=== PATIENT | female | born 1950 | race Caucasian/White ===

== ENCOUNTER 2018-09-15 20:24 | Emergency (ER) | payer MEDICARE, SELFPAY ==
[2018-09-15 20:25] VITALS: BP 88/47; PULSE 82; RESP 26; TEMP 36.8; O2SAT 100; BMI 34.7
[2018-09-15 20:35] VITALS: BP 122/69; PULSE 83; RESP 18; TEMP 36.6; O2SAT 94
--- NOTE | 2018-09-15 21:01 | EKG12_ITS ---
Test Reason : GI BLEED Blood Pressure : / mmHG Vent. Rate : 081 BPM Atrial Rate : 081 BPM P-R Int : 232 ms QRS Dur : 134 ms QT Int : 444 ms P-R-T Axes : 023 -70 051 degrees QTc Int : 515 ms Sinus rhythm with 1st degree A-V block Left axis deviation Non-specific intra-ventricular conduction block Inferior infarct , age undetermined Anterolateral infarct , age undetermined Abnormal ECG Confirmed by BRAULIO GUTIERREZ, LANDON ([id number]), communications editor HILARIO TRACEY ([id number]) on 09/21/2018 9:55:40 AM Referred By: JAMARI Confirmed By:LANDON RAMSEY MD
--- NOTE | 2018-09-15 21:03 | ED.VISSUMM ---
- ER Visit Summary Date of Service: 09/15/18 Chief Complaint: Melena History of Present Illness: The patient is a 68 F who presents from [facility] for GI bleed. Patient has had 2 episodes of melena today. She has associated dizziness and lightheadedness. Patient is nauseated. Patient denies history of GI bleed before. She is not on any blood thinners other than baby aspirin daily. The nurse practitioner that evaluated her and sent her in for further workup states patient's abdomen was tender on evaluation. Patient currently has complaints of dizziness and nausea. Physical Examination: Vital signs: afebrile, tachycardic, normotensive, no hypoxia on room air General: well nourished, well developed, in mild distress Skin: warm, dry, no rash, pale with conjunctiva pallor, noted several scattered bruises in various stages of healing on the extremities r HEENT: normocephalic and atraumatic; PERRL, EOMI, moist mucous membranes Cardiovascular: Tachycardic rate and rhythm without murmurs, 2+ symmetric pittting peripheral edema, 2+ pulses all distal extremities Respiratory: No increased work of breathing, lungs are clear to auscultation bilaterally, no rales, rhonchi or wheezing Abdominal: Abdomen is soft, diffusely tender with normoactive bowel sounds, no guarding or rebound, no masses; active gross melena in patient's depends MSK: Moves all extremities, no deformities, generalized weakness Neuro: Awake and alert, oriented ?4. No facial droop, sensation and motor function intact and symmetric Test Results: Abnormal Lab Results 09/15/18 09/15/18 09/15/18 20:30 20:30 20:30 WBC 8.6 RBC 3.28 L Hgb 10.4 L Hct 31.9 L MCV 97.3 MCH 31.7 MCHC 32.6 RDW 20.9 H RDW Differential 72.8 H Plt Count 135 L MPV 10.5 Immature Gran % (Auto) 0.400 Neut % (Auto) 55.4 Lymph % (Auto) 33.2 [place] % (Auto) 10.8 H Eos % (Auto) 0.0 Baso % (Auto) 0.2 Absolute Neuts (auto) 4.7 Absolute Lymphs (auto) 2.84 Total Counted Not Reportable Platelet Estimate SLT DEC Hypochromasia RARE Anisocytosis 1+ Macrocytosis 1+ PT 16.0 H INR 1.3 APTT 29.9 Sodium 146 H Potassium 4.3 Chloride 113 H Carbon Dioxide 24.0 Anion Gap 9 BUN 28 H Creatinine 0.70 Estim Creat Clear Calc 55.07 Est GFR (MDRD) Af Amer 107 Est GFR (MDRD) Non-Af 89 BUN/Creatinine Ratio 40.1 H Glucose 64 L Lactic Acid Calcium 8.0 L Total Bilirubin 0.60 AST 64 H ALT 43 Alkaline Phosphatase 102 Total Protein 4.7 L Albumin 1.8 L Globulin 2.9 Albumin/Globulin Ratio 0.6 L Lipase 35 L Blood Type Antibody Screen Crossmatch 09/15/18 09/15/18 20:30 21:10 WBC RBC Hgb Hct MCV MCH MCHC RDW RDW Differential Plt Count MPV Immature Gran % (Auto) Neut % (Auto) Lymph % (Auto) [place] % (Auto) Eos % (Auto) Baso % (Auto) Absolute Neuts (auto) Absolute Lymphs (auto) Total Counted Platelet Estimate Hypochromasia Anisocytosis Macrocytosis PT INR APTT Sodium Potassium Chloride Carbon Dioxide Anion Gap BUN Creatinine Estim Creat Clear Calc Est GFR (MDRD) Af Amer Est GFR (MDRD) Non-Af BUN/Creatinine Ratio Glucose Lactic Acid 2.1 H Calcium Total Bilirubin AST ALT Alkaline Phosphatase Total Protein Albumin Globulin Albumin/Globulin Ratio Lipase Blood Type O POSITIVE Antibody Screen NEGATIVE Crossmatch See Detail Clinical Impression(s) from Imaging Studies KUB X-Ray 09/15/18 21:55 IMPRESSION: Enteric tube tip in the stomach. Electronically Signed: Chuck Olea, at 22:16 EST Tel , Service support , Medications Given Discontinued Medications Dextrose (D50w Syringe) 12.5 gm IV X1 ONE Stop: 09/15/18 21:37 Last Admin: 09/15/18 22:00 Dose: 12.5 gm Sodium Chloride () 500 mls @ 1,000 mls/hr IV .Q30M ONE Stop: 09/15/18 21:29 Last Admin: 09/15/18 21:26 Dose: 1,000 mls/hr Pantoprazole Sodium 80 mg/ (Sodium Chloride) 35 mls @ 420 mls/hr IV BOLUS X1 ONE Stop: 09/15/18 21:59 Last Admin: 09/15/18 22:25 Dose: 420 mls/hr Ondansetron HCl (Zofran) 4 mg IV X1 ONE Stop: 09/15/18 21:01 Last Admin: 09/15/18 21:18 Dose: 4 mg Emergency Department Course and Treatment: Patient presents with active melena, pallor, tachycardia, abdominal discomfort and nausea. This is concerning for active life-threatening GI hemorrhage. Patient was typed and crossed for blood transfusion. Labs were performed. She was given a small fluid bolus and antiemetic. NG placed with return of coffee-ground emesis. She was given Protonix IV. Because there is no history or suspicion for bleeding varices, patient was not given octreotide or Rocephin. Hemoglobin was 10.4, with no baseline for comparison. Because of patient's significant pallor and large amount of melena, it is concerning that patient's hemoglobin is not reflective of her actual anemic state. Thus patient was given a unit of blood. Patient did have elevated BUN and an elevated lactate, which is consistent with the GI bleed. No obvious indication of underlying infection thus no further lactates were performed and patient was not empirically treated for sepsis. Glucose was low at 64, and thus patient was given half an amp of D50. Patient remained hemodynamically stable. Patient was discussed with our surgeon, Dr. Argueta, and patient will likely require intervention not available at this facility. Patient was discussed with [facility] and transferred for further management of acute upper GI bleed and symptomatic anemia. If patient has not been transferred yet at the completion of her first unit of blood, hemoglobin will be repeated, and if it remains stable, no further will be transfused at this time. However if it is trending downward, a second unit will be initiated due to concern for continued active brisk bleed. Critical care time of 45 minutes for initial evaluation and stabilization, coordination of care, frequent re-evaluations, interpretation of lab work, discussion with specialists, discussion with family, and documentation. Treatment Plan: [] Disposition: Transfer to [facility] Impression: Acute upper GI bleed, symptomatic anemia, hypoglycemia This note was generated with [employer] dictation software. It may contain incorrect words, spelling, and punctuation that were not noted in review of the chart prior to signing ED Disposition - Plan for ED Patient: Referrals: Shakira Brewer MD [Primary Care Provider] -
[2018-09-15 21:11] LABS: Absolute Lymphocyte Count 2.84 X10^3/ul (0.83-4.51); Absolute Neutrophil Count 4.7 X10^3/uL (2.0-7.7); Basophil# 0.02 X10^3/uL; Basophil% 0.2 % (0-1); Hematocrit 31.9 % (37-47); Hemoglobin 10.4 g/dl (12.0-15.0); Lymphocyte # 2.84 X10^3/ul (4.0); Lymphocyte % 33.2 % (19-41); Mean Corp Hgb Conc 32.6 g/gl (32-36); Mean Corpuscular Hgb 31.7 pg (27.0-32.0); Mean Corpuscular Volume 97.3 fL (81-99); Mean Platelet Vol. 10.5 fl (6.2-12.0); Monocyte# 0.92 X10^3/uL; Monocyte% 10.8 % (0-10); Neutrophil # 4.74 X10^3/uL (2.7-7.7); Neutrophil % 55.4 % (47-70); Platelet Count 135 K/mm3 (150-450); RBC Distribution Width CV 20.9 % (11.6-14.6); RBC Distribution Width SD 72.8 fl (35.1-43.9); Red Blood Count 3.28 M/mm3 (4.2-5.4); White Blood Count 8.6 K/mm3 (4.4-11.0)
[2018-09-15 21:14] LABS: International Normalized Ratio 1.3
[2018-09-15 21:15] LABS: Partial Thromboplast Time 29.9 Seconds (24.1-36.2)
[2018-09-15] MEDS: Ondansetron 4 MG/2 ML Vial IV (21:18)
[2018-09-15 21:24] LABS: Differential Indicated SCAN CRITERIA MET; POSITIVE COUNT NO; POSITIVE DIFFERENTIAL NO; POSITIVE MORPHOLOGY YES
[2018-09-15 21:28] LABS: ALB/GLOB Ratio 0.6 RATIO (0.9-2.4); AST(SGOT) 64 U/L (15-37); Alanine Aminotransfer ALT/SGPT 43 U/L (13-56); Albumin, Serum 1.8 g/dL (3.2-5.0); Alkaline Phosphatase 102 U/L (45-117); Anion Gap 9 (5-15); BUN 28 mg/dL (7-18); BUN/Creat Ratio 40.1 RATIO (10-20); Chloride 113 mmol/L (98-107); EST Glomerular Filtration Rate 89 mL/min (>60); Est Glom Filt Rate - Afr Amer 107 mL/min (>60); Estimated Creatinine Clearance 55.07 ml/min; Globulin 2.9 g/dL (2.2-4.2); Glucose 64 mg/dL (74-106); Lipase 35 U/L (73-393); Potassium 4.3 mmol/L (3.5-5.1); Protein, Total 4.7 g/dL (6.4-8.2); Sodium Level 146 mmol/L (136-145)
[2018-09-15 21:31] LABS: Anisocytosis 1+; Hypochromasia RARE; Macrocytosis 1+; Platelet Estimate SLT DEC (ADEQ)
[2018-09-15 21:51] LABS: Lactic Acid 2.1 mmol/L (0.4-2.0)
--- NOTE | 2018-09-15 21:53 | ED.RN ---
DR BROWN NOTIFIED OF LACTIC ACID RESULTS
--- NOTE | 2018-09-15 21:55 | RAD_ITS ---
STUDY: X-RAY - ABDOMEN/PELVIS REASON FOR EXAM: Female, 68 years old. NG tube placement. TECHNIQUE: 2 supine views of the abdomen COMPARISON: None. FINDINGS: There is an enteric tube noted with its tip in the stomach. There is no bowel obstruction. There is air and stool to the level of the rectum. The visualized osseous structures are within normal limits. RAD/Abdomen Single View (Portable) IMPRESSION: Enteric tube tip in the stomach. Electronically Signed: Chuck Olea, at 22:16 EST Tel , Service support ,
--- NOTE | 2018-09-15 21:55 | ED.RN ---
LACTIC ACID 2.1, MD AWARE. COFFEE GROUND EMESIS NOTED ON MD ALEXANDRA AWARE.
[2018-09-15] MEDS: Dextrose 50%-Water 25 GM/50 ML DISP.SYRIN IV (22:00)
[2018-09-15 23:18] VITALS: BP 96/58; PULSE 80; RESP 19; TEMP 36.9; O2SAT 98
--- NOTE | 2018-09-15 23:18 | NURSING ---
ACCEPTED AT [address] [phone] REPORT
[2018-09-15 23:22] VITALS: BP 96/58; PULSE 80; RESP 18; TEMP 36.9; O2SAT 98
--- NOTE | 2018-09-15 23:30 | NURSING ---
CALLED [facility] FOR TRANSPORT AND WAS TOLD 4 HOUR WAIT AND JANET WAS A 2 HOUR WAIT SO WENT WITH [facility]
[2018-09-15 23:37] VITALS: BP 113/94; PULSE 80; RESP 19; TEMP 36.6; O2SAT 99
[2018-09-16 00:21] VITALS: BP 84/60; PULSE 79; RESP 16; O2SAT 98
[2018-09-16 00:37] VITALS: BP 105/67; PULSE 78; RESP 20; TEMP 36.7; O2SAT 98
[2018-09-16 01:21] LABS: Reflex Lactate? Y
[2018-09-16 01:28] VITALS: BP 105/67; PULSE 77; RESP 16; TEMP 36.9; O2SAT 97
[2018-09-16 01:34] VITALS: BP 105/67; PULSE 77; RESP 15; O2SAT 97
[2018-09-16 01:37] VITALS: BP 113/62; PULSE 79; RESP 19; TEMP 36.9; O2SAT 98
--- NOTE | 2018-09-16 02:25 | ED.RN ---
ECF UPDATED WITH ADMISSION AND TRANSFER.
[2018-09-16 02:42] LABS: Bedside Glucose 95 mg/dL (70-110)
== END 2018-09-16 01:45 | disposition short-term general hospital (02) ==
PROVIDERS: Emergency Provider Emergency Medicine; Family Provider Internal Medicine; PCP Internal Medicine
DX: K92.2 Gastrointestinal hemorrhage, unspecified (principal); D64.9 Anemia, unspecified; E16.2 Hypoglycemia, unspecified; E11.22 Type 2 diabetes mellitus with diabetic chronic kidney disease; N18.9 Chronic kidney disease, unspecified; M06.9 Rheumatoid arthritis, unspecified; R42 Dizziness and giddiness; R00.0 Tachycardia, unspecified; R23.1 Pallor; R11.0 Nausea; E66.9 Obesity, unspecified; Z79.82 Long term (current) use of aspirin; Z79.899 Other long term (current) drug therapy; I25.2 Old myocardial infarction
CPT/HCPCS: 36430; 74018; 80053; 82962; 83605; 83690; 85025; 85610; 85730; 86850; 86900; 86920; 86922; 93005; 96361; 96374; 96375; 99285; P9016; A4216; J2405; J3490

== ENCOUNTER 2018-09-23 00:09 | Inpatient (IN) | payer MEDICARE, SELFPAY ==
[2018-09-23] VITALS (17 sets, daily range): BP systolic 94–141; BP diastolic 52–81; PULSE 65–94; RESP 16–28; TEMP 35.4–36.4; O2SAT 97–100; BMI 36.0; BMI 34.2; BMI 34.3
--- NOTE | 2018-09-23 00:25 | RAD_ITS ---
STUDY: X-RAY CHEST REASON FOR EXAM: Female, 68 years old. Hypertension. History of gastrointestinal bleed. TECHNIQUE: AP portable chest. COMPARISON: None. FINDINGS: Lungs are hypoinflated. Heart is at the upper limits of normal size. Extensive airspace opacities at both bases right much greater than left. Considerations include effusions, atelectasis and pneumonia. No pneumothorax. Normal visualized thoracic spine. Normal visualized ribs, clavicles, and shoulders. There is no demonstrated abnormality of the visualized soft tissue structures of the upper abdomen. RAD/Chest 1 View (Portable) IMPRESSION: Bilateral lower lobe subsegmental atelectasis, effusion and/or pneumonia. Consider correlation with CT chest or CT abdomen and pelvis, the latter of which also includes the lung bases. Electronically Signed: Say Smith MD at 0:56 EST , Service support ,
--- NOTE | 2018-09-23 00:25 | EKG12_ITS ---
Test Reason : Blood Pressure : / mmHG Vent. Rate : 076 BPM Atrial Rate : 076 BPM P-R Int : 238 ms QRS Dur : 144 ms QT Int : 440 ms P-R-T Axes : 073 -64 066 degrees QTc Int : 495 ms Sinus rhythm with 1st degree A-V block Left axis deviation Right bundle branch block Inferior infarct , age undetermined Anterolateral infarct , age undetermined Abnormal ECG Confirmed by BRAULIO GUTIERREZ, LANDON ([id number]), art editor HILARIO TRACEY ([id number]) on 09/25/2018 8:25:38 AM Referred By: LAURA Confirmed By:LANDON RAMSEY MD
[2018-09-23 01:09] LABS: Absolute Lymphocyte Count 0.65 X10^3/ul (0.83-4.51); Absolute Neutrophil Count 11.5 X10^3/uL (2.0-7.7); Basophil# 0.01 X10^3/uL; Basophil% 0.1 % (0-1); Differential Indicated SCAN CRITERIA MET; Hematocrit 33.1 % (37-47); Hemoglobin 10.8 g/dl (12.0-15.0); Lymphocyte # 0.65 X10^3/ul (4.0); Mean Corp Hgb Conc 32.6 g/gl (32-36); Mean Corpuscular Volume 98.2 fL (81-99); Mean Platelet Vol. 11.2 fl (6.2-12.0); Monocyte# 0.81 X10^3/uL; Monocyte% 6.2 % (0-10); Neutrophil % 88.2 % (47-70); POSITIVE COUNT NO; POSITIVE DIFFERENTIAL NO; POSITIVE MORPHOLOGY YES; Platelet Count 122 K/mm3 (150-450); RBC Distribution Width CV 23.1 % (11.6-14.6); RBC Distribution Width SD 79.3 fl (35.1-43.9); Red Blood Count 3.37 M/mm3 (4.2-5.4)
--- NOTE | 2018-09-23 01:20 | CT_ITS ---
STUDY: CT CHEST WITHOUT CONTRAST REASON FOR EXAM: Female, 68 years old. Hypotension. Recent gastrointestinal bleed. Abdominal pain. RADIATION DOSAGE (If Supplied By Facility): CTDIvol = ( 19.36 ) mGy, DLP = ( 526.31 ) mGycm TECHNIQUE: Transaxial imaging was performed without the administration of intravenous contrast material. Individualized dose optimization techniques were used for this CT. COMPARISON: Plain film of the abdomen September 15, 2018. Chest x-ray September 23, 2018. FINDINGS: Mildly elevated right hemidiaphragm. Bilateral lower lobe and right middle lobe density with air bronchograms. No right pleural effusion. The heart is not enlarged. Coronary artery calcifications. Coronary artery stent. No pericardial effusion. Normal mediastinum. Normal hilar regions. Normal unenhanced pulmonary arteries. Normal aorta arch and descending thoracic aorta. Normal osseous structures. Cholelithiasis and/or gallbladder sludge. CT/Chest without Contrast IMPRESSION: Bilateral lower lobe and to a lesser extent right middle lobe subsegmental atelectasis versus pneumonia. Small right pleural effusion. Coronary artery calcifications. Cholelithiasis/gallbladder sludge. Electronically Signed: Say Smith MD at 3:04 EST , Service support ,
[2018-09-23 01:21] LABS: ALB/GLOB Ratio 0.6 RATIO (0.9-2.4); AST(SGOT) 49 U/L (15-37); Alanine Aminotransfer ALT/SGPT 57 U/L (13-56); Alkaline Phosphatase 115 U/L (45-117); Anion Gap 9 (5-15); BUN 30 mg/dL (7-18); BUN/Creat Ratio 49.8 RATIO (10-20); Calcium,Total 9.3 mg/dL (8.5-10.1); Chloride 121 mmol/L (98-107); EST Glomerular Filtration Rate 105 mL/min (>60); Est Glom Filt Rate - Afr Amer 127 mL/min (>60); Estimated Creatinine Clearance 55.07 ml/min; Globulin 3.2 g/dL (2.2-4.2); Glucose 86 mg/dL (74-106); Lipase 36 U/L (73-393); Potassium 3.1 mmol/L (3.5-5.1); Protein, Total 5.2 g/dL (6.4-8.2); Sodium Level 154 mmol/L (136-145)
[2018-09-23 01:33] LABS: Anisocytosis 1+; Differential Comment SCAN
[2018-09-23 01:34] LABS: Hypochromasia 1+; Microcytosis 1+; Polychromasia 1+
[2018-09-23 01:45] LABS: Mucous, Urine 0 SEEN /hpf (<or=2+); Squamous Epithelial Cells - UA 0 SEEN /hpf (5-10)
--- NOTE | 2018-09-23 01:48 | ED.RN ---
PT HARD STICK. LEFT ARM VERY EDEMATOUS, SKIN TIGHT. RIGHT Arm bruised throughout from recent hospitalization. unable to obtain iv. dr. arguelles informed. pt vs stable. warm blankets placed. fem stick done per dr. arguelles to obtain blood work. central line ordered.
[2018-09-23 01:49] LABS: Color, Urine Yellow (Yellow); Glucose, Dipstick Normal (Normal); Ketone-Dipstick 15 mg/dl (Negative); Leukocyte Esterase-Dipstick 500 /ul (Negative); Nitrite-Dipstick Positive (Negative); Occult Blood-Urine 250 /ul (Negative); Protein-Dipstick 30 mg/dl (Negative); Specific Gravity, Urine 1.025 (1.002-1.030); Urine Clarity Cloudy (Clear); Urine Urobilinogen 1 mg/dl (Normal)
[2018-09-23 01:50] LABS: Urine Bilirubin Dipstick 1 mg/dL (Negative)
[2018-09-23 01:55] LABS: Bacteria 4+ /hpf (None Seen); Red Blood Cells-Urine 0-5 SEEN /hpf (0-5); White Blood Cells 50-100 SEEN /hpf (0-5)
[2018-09-23 01:57] LABS: Lactic Acid 1.1 mmol/L (0.4-2.0)
[2018-09-23 02:10] LABS: International Normalized Ratio 1.3; Partial Thromboplast Time 31.7 Seconds (24.1-36.2); Prothrombin Time (Protime)PT. 16.3 SECONDS (11.7-14.9)
[2018-09-23 02:41] LABS: Blood Gas Specimen Type VEN; O2 Delivery Device Nasal Can; SITE R Femoral; VBG BASE EXCESS -2 mmol/L (-1.0-3.5); VBG Bicarbonate 23 mmol/L (22-26); VBG Oxygen Content 24 mmol/L (23-33); VBG PO2 109 mmHg (25-40); VBG SO2 98 % (50-70); VBG pCO2 35.7 mmHg (41-51); VBG pH 7.41 (7.32-7.42)
--- NOTE | 2018-09-23 02:46 | ED.RN ---
LACTATED RINGERS ON HOLD PER DR. SANCHEZ.
--- NOTE | 2018-09-23 02:59 | ED.RN ---
[facility] OFF OF FEMORAL LINE PLACEMENT SHOWS ARTERIAL PLACEMENT. SET UP MADE TO REMOVE RIGHT FEMORAL CENTRAL LINE SITE. DR. SANCHEZ AT BEDSIDE. PT TOLERATING WELL. PRESSURE BEEN HELD TO FEMORAL SITE. PT PLACED IN POSITION OF COMFORT. WILL CONTINUE TO MONITOR.
--- NOTE | 2018-09-23 03:20 | PCM.HP.STD ---
Problem List (1) Acute UTI Status: Acute (2) GI bleed Status: Resolved Qualifiers: GI bleed type/associated pathology: unspecified gastrointestinal hemorrhage type Qualified Code(s): K92.2 - Gastrointestinal hemorrhage, unspecified (3) Normocytic anemia Status: Chronic (4) CAD (coronary artery disease) Status: Chronic Qualifiers: Coronary Disease-Associated Artery/Lesion type: unspecified vessel or lesion type [place] vs. transplanted heart: unspecified whether [place] or transplanted heart Associated angina: angina presence unspecified Qualified Code(s): I25.10 - Atherosclerotic heart disease of [place] coronary artery without angina pectoris (5) CVA (cerebral vascular accident) Status: Chronic Qualifiers: CVA mechanism: unspecified Qualified Code(s): I63.9 - Cerebral infarction, unspecified (6) HTN (hypertension) Status: Chronic Qualifiers: Hypertension type: essential hypertension Qualified Code(s): I10 - Essential (primary) hypertension (7) HLD (hyperlipidemia) Status: Chronic Qualifiers: Hyperlipidemia type: pure hypercholesterolemia Qualified Code(s): E78.00 - Pure hypercholesterolemia, unspecified; E78.0 - Pure hypercholesterolemia (8) Diabetes mellitus, type II Status: Chronic Qualifiers: Diabetes mellitus long-term insulin use: without ebd teacher use Diabetes mellitus complication status: with unspecified complications Qualified Code(s): E11.8 - Type 2 diabetes mellitus with unspecified complications (9) Dysphagia as late effect of cerebrovascular accident (CVA) Status: Chronic (10) Obesity (BMI 30-39.9) Status: Chronic (11) GERD (gastroesophageal reflux disease) Status: Chronic Qualifiers: Esophagitis presence: esophagitis presence not specified Qualified Code(s): K21.9 - Gastro-esophageal reflux disease without esophagitis (12) Anxiety and depression Status: Chronic History of Present Illness Date of Admission: 09/23/18 Chief Complaint: Abdominal pain, low BP at [facility] The patient is a 68 y/o F, resident at [facility] w/ PMHx: Rheumatoid Arthritis, Chronic BL LE Lymphedema, Chronic Hypoxic Respiratory Failure, CVA w/ L sided hemiplegia, Chronic Dysphagia, CAD s/p PCI x 2, HTN, HLD, GERD, Diabetes mellitus type II, Obesity, Chronically Elevated LFTs w/ Fatty Liver, recent discharge on day prior to ED presentation from [facility] w/ recent suspected GI bleed w/ upper and lower endoscopies with only notable gastritis with polypectomy x 4 who now presents to the [facility] ED on 09/23/18 with generalized abdominal discomfort and SNF reported low normal BPs. She notes increased urinary frequency and mild dysuria. Upon ED presentation, workup included T 95.8 axillary with repeat rectal 96.3, heart rate 76, BP initially 94/52 with repeat 128/81, respiratory rate 18, 100% on 4 L nasal cannula, CBC with WBC 13, hemoglobin 10.8, platelet 122 with left shift, coags with PT 16.3, CMP w/ sodium 154, potassium 3.1, chloride 121, BUN/Cr 30/0.60, lactic acid 1.1, AST/ALT 49/57, UA with evidence of dehydration, notable for urinary tract infection with pending urine culture and additionally requested blood culture x2. In the ED patient very difficult access with several attempts including IJ with eventual attempt for femoral however arterial access accidentally obtained, access removed and pressure performed in the ED and ongoing upon evaluation of patient with planned continued duration at least 20 minutes with sandbag following discussion with the ED physician. In the ED patient administered 1 g IM Rocephin x1, lactated ringers. Past Medical History Past Medical History (Chronic Problems): Chronic Problems Normocytic anemia (Chronic) CAD (coronary artery disease) (Chronic) CVA (cerebral vascular accident) (Chronic) HTN (hypertension) (Chronic) HLD (hyperlipidemia) (Chronic) Diabetes mellitus, type II (Chronic) Dysphagia as late effect of cerebrovascular accident (CVA) (Chronic) Obesity (BMI 30-39.9) (Chronic) GERD (gastroesophageal reflux disease) (Chronic) Anxiety and depression (Chronic) Allergies clopidogrel bisulfate [From Plavix] Adverse Reaction (Verified 09/23/18 00:09) Unknown erythromycin base [Erythromycin Base] Adverse Reaction (Verified 09/23/18 00:09) Pain in joints tetracycline [Tetracycline] Adverse Reaction (Verified 09/23/18 00:09) Unknown Home Medications: Ambulatory Orders Medication Instructions Recorded Aspirin E.C. [Ecotrin] 81 mg PO DAILY@0803/18/16 Atenolol [Tenormin] 50 mg PO DAILY 03/18/16 Atorvastatin Calcium [Lipitor] 40 mg PO QHS 03/18/16 Folic Acid 1 mg PO DAILY@0803/18/16 Hydroxychloroquine [Plaquenil] 200 mg PO BIDCM 03/18/16 [place]-3 Fatty Acids/Fish Oil 1 cap PO DAILY 03/18/16 [[place] 3 Fish Oil Softgel] Docusate Sodium [Colace] 100 mg PO QHS 09/15/18 Potassium Chloride [Klor-Con M20] 20 meq PO BID 09/15/18 traZODone [Desyrel] 25 mg PO QHS 09/15/18 Ascorbic Acid [Vitamin C] 500 mg PO DAILY@0800 09/23/18 Methotrexate Sodium [Methotrexate] 2.5 mg PO FR 09/23/18 Multivit,Tx with Iron,Minerals 1 each PO DAILY 09/23/18 [Thera-M] Pantoprazole Sodium [Protonix] 40 mg PO BID 09/23/18 Polyethylene Glycol 3350 [Miralax] 34 gm PO DAILY PRN 09/23/18 Zolpidem Tartrate [Ambien 5 mg PO QHS PRN PRN 09/23/18 (Generic)] Surgical History: - - PCI x 2, x 3, appendectomy, right knee arthroscopic surgery x 2, right total knee replacement, recent endoscopies with polypectomy x 4. 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 Tobacco Use: Non-smoker Alcohol: None Drugs: None - *Family History Maternal History Items: - - Patient notes a maternal and paternal family history of heart disease. Paternal History Items: - - Patient notes a maternal and paternal family history of heart disease. Review of Systems Constitutional: Reports: Chills, Malaise, Weakness, Fatigue. Denies: Fever, Weight Change HEENT: Reports: Difficulty Swallowing. Denies: Head Aches, Sinus Congestion, Sinus Drainage Cardiovascular: Denies: Chest Pain, Palpitations Respiratory: Denies: Cough, Shortness of breath at rest, Sputum production Gastrointestinal: Reports: Abdominal Pain. Denies: Nausea, Vomiting Genitourinary: Reports: Dysuria, Frequency Musculoskeletal: Reports: Joint Pain, Muscle pain. Denies: Joint Tenderness Skin: Reports: Skin Changes. Denies: Rash, Wounds Neurological: Reports: Change in Speech, Focal weakness. Denies: Numbness, Tingling Psychiatric: Denies: Anxiety, Depression, Homicidal Ideations, Suicidal Ideations Hematologic/ Lymphatic: Reports: Anemia, Easy Bruising, Easy Bleeding VTE Information - Inpt Only VTE Present on Admission: No VTE Mechan Device Prophylaxis: SCD's VTE Pharm Prophylaxis ordered?: No Reason prophylaxis not ordered:: Medical Contraindication Patient Problems: Active and Suspected Problems Acute UTI (Acute) Subjective: Seated upright in the ED bed, notes discomfort to the R groin with currently pressure being held per staff. Objective: Physical Examination: General: awake, alert, oriented x [address], year, month, recent events and cooperative, seated upright in the ED bed in no apparent distress. Skin: normal color, turgor, no icterus, cyanosis except for diffuse various staged ecchymoses to the extremities. HEENT: AT/NC, EOMI, PERRLA, only dry MM, no carotid bruits or JVD noted; thickened neck makes examination difficult, mild thrush noted. Lungs: Managed breath sounds throughout, greater bilateral bases, distant, no rales, ronchi or wheezing. Heart: Regular rate and rhythm; no gallop, rub audible. Abdomen: soft, obese, NTTP, ND, normal BS, no HSM; however habitus makes examination difficult. Extremities: no cyanosis, clubbing, notable bilateral lower extremity pedal to proximal boudreaux 3+ pitting edema. Neurological: patient awake, alert, oriented x 3; cognitive function appears intact but unclear baseline; pupils equally reactive to light and accomodation; cranial nerves II-XII grossly normal, chronic left-sided hemiplegia status post CVA, aphasia present, strength severely global decreased acute on chronic secondary to acute presentation. Psychiatric: affect appears flat, no acute evidence of depressive or anxiety feelings. - Physical Exam Vital Signs Temp Pulse Resp BP Pulse Ox 96.3 F L 82 25 H 123/81 H 100 09/23/18 01:46 09/23/18 03:00 09/23/18 03:00 09/23/18 03:00 09/23/18 03:00 Oxygen Flow Rate (L/min) 4 Oxygen Delivery Method Nasal Cannula Weight: 236 lb 12.423 oz Body Mass Index (BMI) 36.0 Finger Stick Blood Glucose 95 Laboratory Tests Past 24 Hrs 09/23/18 09/23/18 09/23/18 01:00 01:00 01:25 WBC 13.0 H RBC 3.37 L Hgb 10.8 L Hct 33.1 L MCV 98.2 MCH 32.0 MCHC 32.6 RDW 23.1 H RDW Differential 79.3 H Plt Count 122 L MPV 11.2 Immature Gran % (Auto) 0.500 Neut % (Auto) 88.2 H Lymph % (Auto) 5.0 L [place] % (Auto) 6.2 Eos % (Auto) 0.0 Baso % (Auto) 0.1 Absolute Neuts (auto) 11.5 H Absolute Lymphs (auto) 0.65 L Total Counted Not Reportable Differential Comment SCAN Polychromasia 1+ Hypochromasia 1+ Anisocytosis 1+ Microcytosis 1+ PT 16.3 H INR 1.3 APTT 31.7 Specimen Type Sample Site VBG pH VBG pO2 VBG O2 Sat (Calc) VBG O2 Content VBG Base Excess POC Mix VBG pCO2 Pt Tmp O2 Delivery Device Liter Flow Blood Gas Notified Whom Sodium 154 H Potassium 3.1 L Chloride 121 H Carbon Dioxide 24.0 Anion Gap 9 BUN 30 H Creatinine 0.60 Estim Creat Clear Calc 55.07 Est GFR (MDRD) Af Amer 127 Est GFR (MDRD) Non-Af 105 BUN/Creatinine Ratio 49.8 H Glucose 86 Lactic Acid Calcium 9.3 Total Bilirubin 0.80 AST 49 H ALT 57 H Alkaline Phosphatase 115 Total Protein 5.2 L Albumin 2.0 L Globulin 3.2 Albumin/Globulin Ratio 0.6 L Lipase 36 L Urine Color Urine Clarity Urine pH Ur Specific [place] Urine Protein Urine Glucose (UA) Urine Ketones Urine Occult Blood Urine Nitrite Urine Bilirubin Urine Urobilinogen Ur Leukocyte Esterase Urine RBC Urine WBC Ur Squamous Epith Cells Urine Bacteria Urine Mucus Blood Type Antibody Screen 09/23/18 09/23/18 09/23/18 01:25 01:28 01:41 WBC RBC Hgb Hct MCV MCH MCHC RDW RDW Differential Plt Count MPV Immature Gran % (Auto) Neut % (Auto) Lymph % (Auto) [place] % (Auto) Eos % (Auto) Baso % (Auto) Absolute Neuts (auto) Absolute Lymphs (auto) Total Counted Differential Comment Polychromasia Hypochromasia Anisocytosis Microcytosis PT INR APTT Specimen Type Sample Site VBG pH VBG pO2 VBG O2 Sat (Calc) VBG O2 Content VBG Base Excess POC Mix VBG pCO2 Pt Tmp O2 Delivery Device Liter Flow Blood Gas Notified Whom Sodium Potassium Chloride Carbon Dioxide Anion Gap BUN Creatinine Estim Creat Clear Calc Est GFR (MDRD) Af Amer Est GFR (MDRD) Non-Af BUN/Creatinine Ratio Glucose Lactic Acid 1.1 Calcium Total Bilirubin AST ALT Alkaline Phosphatase Total Protein Albumin Globulin Albumin/Globulin Ratio Lipase Urine Color Yellow Urine Clarity Cloudy Urine pH 5.0 Ur Specific [place] 1.025 Urine Protein 30 H Urine Glucose (UA) Normal Urine Ketones 15 H Urine Occult Blood 250 H Urine Nitrite Positive H Urine Bilirubin 1 H Urine Urobilinogen 1 H Ur Leukocyte Esterase 500 H Urine RBC 0-5 SEEN Urine WBC 50-100 SEEN Ur Squamous Epith Cells 0 SEEN Urine Bacteria 4+ Urine Mucus 0 SEEN Blood Type O POSITIVE Antibody Screen NEGATIVE 09/23/18 02:34 WBC RBC Hgb Hct MCV MCH MCHC RDW RDW Differential Plt Count MPV Immature Gran % (Auto) Neut % (Auto) Lymph % (Auto) [place] % (Auto) Eos % (Auto) Baso % (Auto) Absolute Neuts (auto) Absolute Lymphs (auto) Total Counted Differential Comment Polychromasia Hypochromasia Anisocytosis Microcytosis PT INR APTT Specimen Type FABI Sample Site R Femoral VBG pH 7.41 VBG pO2 109 H VBG O2 Sat (Calc) 98 H VBG O2 Content 24 VBG Base Excess -2 L POC Mix VBG pCO2 Pt Tmp 35.7 L O2 Delivery Device Nasal Can Liter Flow 4.0 Blood Gas Notified Whom ED Sodium Potassium Chloride Carbon Dioxide Anion Gap BUN Creatinine Estim Creat Clear Calc Est GFR (MDRD) Af Amer Est GFR (MDRD) Non-Af BUN/Creatinine Ratio Glucose Lactic Acid Calcium Total Bilirubin AST ALT Alkaline Phosphatase Total Protein Albumin Globulin Albumin/Globulin Ratio Lipase Urine Color Urine Clarity Urine pH Ur Specific [place] Urine Protein Urine Glucose (UA) Urine Ketones Urine Occult Blood Urine Nitrite Urine Bilirubin Urine Urobilinogen Ur Leukocyte Esterase Urine RBC Urine WBC Ur Squamous Epith Cells Urine Bacteria Urine Mucus Blood Type Antibody Screen Assessment/Plan All Active Problems Acute UTI (Acute) GI bleed (Resolved) The patient is a 68 y/o F, resident at [facility] w/ PMHx: Rheumatoid Arthritis, Chronic BL LE Lymphedema, Chronic Hypoxic Respiratory Failure, CVA w/ L sided hemiplegia, Chronic Dysphagia, CAD s/p PCI x 2, HTN, HLD, GERD, Diabetes mellitus type II, Obesity, Chronically Elevated LFTs w/ Fatty Liver, recent discharge on day prior to ED presentation from [facility] w/ recent suspected GI bleed w/ upper and lower endoscopies with only notable gastritis with polypectomy x 4 who now presents to the [facility] ED on 09/23/18 with generalized abdominal discomfort and SNF reported low normal BPs. (1) Acute Urinary Tract Infection: Will admit to [facility] upon ED evaluation remarkable, pending UCx, given IVFs in the ED, will hold pending AM access abilities, several trials in the ED including central access attempts and event femoral attempt w/ placement accidentally arterial as noted, will plan AM consultation for PICC versus midline, monitor I/Os, given IM rocephin x 1 in the ED, once access obtained would plan to continue IV Rocephin w/ transition as able pending sensitivities and speciation. Requested Bld cx x 2; however, may be difficult to obtain. (2) Recent GI Bleed secondary to ? Gastritis w/ Normocytic Anemia: Secondary to recent gastritis, GI bleed, admission Hgb 10.8, recent 09/15/18 Hgb 10.4, prior noted 14 range. Maintain on PPI. (3) Hypokalemia: Admission K+ 3.1, supplementation given, repeat level in AM. (4) Thrush: Nystatin SS. (5) Chronic Hypoxic Respiratory Failure: Noted to be on baseline 4L NC, unclear exact etiology aside hypoventilation syndrome, PRN albuterol. (6) CAD: s/p PCI x 2, holding asa given recent bleed history, holding BB given low normal BP, continue statin regimen. (7) Hypertension: Given low normal BP upon presentation and at facility will hold, BP upon evaluation stable, currently access attempts failed, pending AM midline versus PICC. (8) Hyperlipidemia: Continue home statin regimen. (9) Hx CVA: L sided hemiplegia, holding asa given recent bleed history, holding BB given low normal BP, continue statin regimen. (10) Chronic Oropharyngeal Dysphagia: Unclear diet at facility, aphasia noted, notes dysphagia but cannot clarify, speech consulted. (11) Diabetes mellitus type II: Unclear regimen, not on current list, but patient confirmed history, ADA diet, accu checks w/ ISS. (12) Morbid Obesity: Weight loss and lifestyle changes encouraged, nutrition consulted. (13) Rheumatoid arthritis: Continue home Plaquenil and methotrexate regimen. (14) Chronic BL LE Lymphedema: Snug anna wraps, elevation. (15) GERD: PPI as noted. (16) DVT prophylaxis: SCDs, defer chemoprophylaxis given recent discharge from GI bleed presentation. (17) CODE status: Discussed CODE status at length including difference between FULL code, DNR-CCA and DNR-CC status. Following discussions about the differences in these status, requested Full Code status. Advanced Care Planning Face to Face Time: 16 minutes. Code Visit Inpatient E&M: 07882 Init Hosp L3 Procedures: 66910 Advncd Care Plan 30 Min
--- NOTE | 2018-09-23 03:34 | ED.RN ---
PRESSURE DRESSING APPLIED TO RIGHT FEMORAL SITE. COVER SPONGE, 4X4 ABD AND GERARD WRAP. SAND BAG APPLIED AT 0320. PT TOLERATED WELL. NO VISIBLE BLEEDING ON DRESSING CHANGE. DR. SANCHEZ INFORMED. PT RESTING COMFORTABLY. WARM BLANTKETS APPLIED. PT VERY EDEMATOUS THROUGHOUT, DR. SANCHEZ AWARE.
--- NOTE | 2018-09-23 03:41 | HP.PCM_ITS ---
Problem List (1) Acute UTI Status: Acute (2) GI bleed Status: Resolved Qualifiers: GI bleed type/associated pathology: unspecified gastrointestinal hemorrhage type Qualified Code(s): K92.2 - Gastrointestinal hemorrhage, unspecified (3) Normocytic anemia Status: Chronic (4) CAD (coronary artery disease) Status: Chronic Qualifiers: Coronary Disease-Associated Artery/Lesion type: unspecified vessel or lesion type [place] vs. transplanted heart: unspecified whether [place] or transplanted heart Associated angina: angina presence unspecified Qualified Code(s): I25.10 - Atherosclerotic heart disease of [place] coronary artery without angina pectoris (5) CVA (cerebral vascular accident) Status: Chronic Qualifiers: CVA mechanism: unspecified Qualified Code(s): I63.9 - Cerebral infarction, unspecified (6) HTN (hypertension) Status: Chronic Qualifiers: Hypertension type: essential hypertension Qualified Code(s): I10 - Essential (primary) hypertension (7) HLD (hyperlipidemia) Status: Chronic Qualifiers: Hyperlipidemia type: pure hypercholesterolemia Qualified Code(s): E78.00 - Pure hypercholesterolemia, unspecified; E78.0 - Pure hypercholesterolemia (8) Diabetes mellitus, type II Status: Chronic Qualifiers: Diabetes mellitus detention insulin use: without marine oil terminal superintendent use Diabetes mellitus complication status: with unspecified complications Qualified Code(s): E11.8 - Type 2 diabetes mellitus with unspecified complications (9) Dysphagia as late effect of cerebrovascular accident (CVA) Status: Chronic (10) Obesity (BMI 30-39.9) Status: Chronic (11) GERD (gastroesophageal reflux disease) Status: Chronic Qualifiers: Esophagitis presence: esophagitis presence not specified Qualified Code(s): K21.9 - Gastro-esophageal reflux disease without esophagitis (12) Anxiety and depression Status: Chronic History of Present Illness Date of Admission: 09/23/18 Chief Complaint: Abdominal pain, low BP at [facility] The patient is a 68 y/o F, resident at [facility] w/ PMHx: Rheumatoid Arthritis, Chronic BL LE Lymphedema, Chronic Hypoxic Respiratory Failure, CVA w/ L sided hemiplegia, Chronic Dysphagia, CAD s/p PCI x 2, HTN, HLD, GERD, Diabetes mellitus type II, Obesity, Chronically Elevated LFTs w/ Fatty Liver, recent discharge on day prior to ED presentation from [place] w/ recent suspected GI bleed w/ upper and lower endoscopies with only notable gastritis with polypectomy x 4 who now presents to the [facility] ED on 09/23/18 with generalized abdominal discomfort and SNF reported low normal BPs. She notes increased urinary frequency and mild dysuria. Upon ED presentation, workup included T 95.8 axillary with repeat rectal 96.3, heart rate 76, BP initially 94/52 with repeat 128/81, respiratory rate 18, 100% on 4 L nasal cannula, CBC with WBC 13, hemoglobin 10.8, platelet 122 with left shift, coags with PT 16.3, CMP w/ sodium 154, potassium 3.1, chloride 121, BUN/Cr 30/0.60, lactic acid 1.1, AST/ALT 49/57, UA with evidence of dehydration, notable for urinary tract infection with pending urine culture and additionally requested blood culture x2. In the ED patient very difficult access with several attempts including IJ with eventual attempt for femoral however arterial access accidentally obtained, access removed and pressure performed in the ED and ongoing upon evaluation of patient with planned continued duration at least 20 minutes with sandbag following discussion with the ED physician. In the ED patient administered 1 g IM Rocephin x1, lactated ringers. Past Medical History Past Medical History (Chronic Problems): Chronic Problems Normocytic anemia (Chronic) CAD (coronary artery disease) (Chronic) CVA (cerebral vascular accident) (Chronic) HTN (hypertension) (Chronic) HLD (hyperlipidemia) (Chronic) Diabetes mellitus, type II (Chronic) Dysphagia as late effect of cerebrovascular accident (CVA) (Chronic) Obesity (BMI 30-39.9) (Chronic) GERD (gastroesophageal reflux disease) (Chronic) Anxiety and depression (Chronic) Allergies clopidogrel bisulfate [From Plavix] Adverse Reaction (Verified 09/23/18 00:09) Unknown erythromycin base [Erythromycin Base] Adverse Reaction (Verified 09/23/18 00:09) Pain in joints tetracycline [Tetracycline] Adverse Reaction (Verified 09/23/18 00:09) Unknown Home Medications: Ambulatory Orders Medication Instructions Recorded Aspirin E.C. [Ecotrin] 81 mg PO DAILY@0803/18/16 Atenolol [Tenormin] 50 mg PO DAILY 03/18/16 Atorvastatin Calcium [Lipitor] 40 mg PO QHS 03/18/16 Folic Acid 1 mg PO DAILY@0803/18/16 Hydroxychloroquine [Plaquenil] 200 mg PO BIDCM 03/18/16 [place]-3 Fatty Acids/Fish Oil 1 cap PO DAILY 03/18/16 [[place] 3 Fish Oil Softgel] Docusate Sodium [Colace] 100 mg PO QHS 09/15/18 Potassium Chloride [Klor-Con M20] 20 meq PO BID 09/15/18 traZODone [Desyrel] 25 mg PO QHS 09/15/18 Ascorbic Acid [Vitamin C] 500 mg PO DAILY@0800 09/23/18 Methotrexate Sodium [Methotrexate] 2.5 mg PO FR 09/23/18 Multivit,Tx with Iron,Minerals 1 each PO DAILY 09/23/18 [Thera-M] Pantoprazole Sodium [Protonix] 40 mg PO BID 09/23/18 Polyethylene Glycol 3350 [Miralax] 34 gm PO DAILY PRN 09/23/18 Zolpidem Tartrate [Ambien 5 mg PO QHS PRN PRN 09/23/18 (Generic)] Surgical History: - - PCI x 2, x 3, appendectomy, right knee arthroscopic surgery x 2, right total knee replacement, recent endoscopies with polypectomy x 4. 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 Tobacco Use: Non-smoker Alcohol: None Drugs: None - *Family History Maternal History Items: - - Patient notes a maternal and paternal family history of heart disease. Paternal History Items: - - Patient notes a maternal and paternal family history of heart disease. Review of Systems Constitutional: Reports: Chills, Malaise, Weakness, Fatigue. Denies: Fever, Weight Change HEENT: Reports: Difficulty Swallowing. Denies: Head Aches, Sinus Congestion, Sinus Drainage Cardiovascular: Denies: Chest Pain, Palpitations Respiratory: Denies: Cough, Shortness of breath at rest, Sputum production Gastrointestinal: Reports: Abdominal Pain. Denies: Nausea, Vomiting Genitourinary: Reports: Dysuria, Frequency Musculoskeletal: Reports: Joint Pain, Muscle pain. Denies: Joint Tenderness Skin: Reports: Skin Changes. Denies: Rash, Wounds Neurological: Reports: Change in Speech, Focal weakness. Denies: Numbness, Tingling Psychiatric: Denies: Anxiety, Depression, Homicidal Ideations, Suicidal Ideations Hematologic/ Lymphatic: Reports: Anemia, Easy Bruising, Easy Bleeding VTE Information - Inpt Only VTE Present on Admission: No VTE Mechan Device Prophylaxis: SCD's VTE Pharm Prophylaxis ordered?: No Reason prophylaxis not ordered:: Medical Contraindication Patient Problems: Active and Suspected Problems Acute UTI (Acute) Subjective: Seated upright in the ED bed, notes discomfort to the R groin with currently pressure being held per staff. Objective: Physical Examination: General: awake, alert, oriented x [address], year, month, recent events and cooperative, seated upright in the ED bed in no apparent distress. Skin: normal color, turgor, no icterus, cyanosis except for diffuse various staged ecchymoses to the extremities. HEENT: AT/NC, EOMI, PERRLA, only dry MM, no carotid bruits or JVD noted; thickened neck makes examination difficult, mild thrush noted. Lungs: Managed breath sounds throughout, greater bilateral bases, distant, no rales, ronchi or wheezing. Heart: Regular rate and rhythm; no gallop, rub audible. Abdomen: soft, obese, NTTP, ND, normal BS, no HSM; however habitus makes examination difficult. Extremities: no cyanosis, clubbing, notable bilateral lower extremity pedal to proximal boudreaux 3+ pitting edema. Neurological: patient awake, alert, oriented x 3; cognitive function appears intact but unclear baseline; pupils equally reactive to light and accomodation; cranial nerves II-XII grossly normal, chronic left-sided hemiplegia status post CVA, aphasia present, strength severely global decreased acute on chronic secondary to acute presentation. Psychiatric: affect appears flat, no acute evidence of depressive or anxiety feelings. - Physical Exam Vital Signs Temp Pulse Resp BP Pulse Ox 96.3 F L 82 25 H 123/81 H 100 09/23/18 01:46 09/23/18 03:00 09/23/18 03:00 09/23/18 03:00 09/23/18 03:00 Oxygen Flow Rate (L/min) 4 Oxygen Delivery Method Nasal Cannula Weight: 236 lb 12.423 oz Body Mass Index (BMI) 36.0 Finger Stick Blood Glucose 95 Laboratory Tests Past 24 Hrs 09/23/18 09/23/18 09/23/18 01:00 01:00 01:25 WBC 13.0 H RBC 3.37 L Hgb 10.8 L Hct 33.1 L MCV 98.2 MCH 32.0 MCHC 32.6 RDW 23.1 H RDW Differential 79.3 H Plt Count 122 L MPV 11.2 Immature Gran % (Auto) 0.500 Neut % (Auto) 88.2 H Lymph % (Auto) 5.0 L [place] % (Auto) 6.2 Eos % (Auto) 0.0 Baso % (Auto) 0.1 Absolute Neuts (auto) 11.5 H Absolute Lymphs (auto) 0.65 L Total Counted Not Reportable Differential Comment SCAN Polychromasia 1+ Hypochromasia 1+ Anisocytosis 1+ Microcytosis 1+ PT 16.3 H INR 1.3 APTT 31.7 Specimen Type Sample Site VBG pH VBG pO2 VBG O2 Sat (Calc) VBG O2 Content VBG Base Excess POC Mix VBG pCO2 Pt Tmp O2 Delivery Device Liter Flow Blood Gas Notified Whom Sodium 154 H Potassium 3.1 L Chloride 121 H Carbon Dioxide 24.0 Anion Gap 9 BUN 30 H Creatinine 0.60 Estim Creat Clear Calc 55.07 Est GFR (MDRD) Af Amer 127 Est GFR (MDRD) Non-Af 105 BUN/Creatinine Ratio 49.8 H Glucose 86 Lactic Acid Calcium 9.3 Total Bilirubin 0.80 AST 49 H ALT 57 H Alkaline Phosphatase 115 Total Protein 5.2 L Albumin 2.0 L Globulin 3.2 Albumin/Globulin Ratio 0.6 L Lipase 36 L Urine Color Urine Clarity Urine pH Ur Specific [place] Urine Protein Urine Glucose (UA) Urine Ketones Urine Occult Blood Urine Nitrite Urine Bilirubin Urine Urobilinogen Ur Leukocyte Esterase Urine RBC Urine WBC Ur Squamous Epith Cells Urine Bacteria Urine Mucus Blood Type Antibody Screen 09/23/18 09/23/18 09/23/18 01:25 01:28 01:41 WBC RBC Hgb Hct MCV MCH MCHC RDW RDW Differential Plt Count MPV Immature Gran % (Auto) Neut % (Auto) Lymph % (Auto) [place] % (Auto) Eos % (Auto) Baso % (Auto) Absolute Neuts (auto) Absolute Lymphs (auto) Total Counted Differential Comment Polychromasia Hypochromasia Anisocytosis Microcytosis PT INR APTT Specimen Type Sample Site VBG pH VBG pO2 VBG O2 Sat (Calc) VBG O2 Content VBG Base Excess POC Mix VBG pCO2 Pt Tmp O2 Delivery Device Liter Flow Blood Gas Notified Whom Sodium Potassium Chloride Carbon Dioxide Anion Gap BUN Creatinine Estim Creat Clear Calc Est GFR (MDRD) Af Amer Est GFR (MDRD) Non-Af BUN/Creatinine Ratio Glucose Lactic Acid 1.1 Calcium Total Bilirubin AST ALT Alkaline Phosphatase Total Protein Albumin Globulin Albumin/Globulin Ratio Lipase Urine Color Yellow Urine Clarity Cloudy Urine pH 5.0 Ur Specific [place] 1.025 Urine Protein 30 H Urine Glucose (UA) Normal Urine Ketones 15 H Urine Occult Blood 250 H Urine Nitrite Positive H Urine Bilirubin 1 H Urine Urobilinogen 1 H Ur Leukocyte Esterase 500 H Urine RBC 0-5 SEEN Urine WBC 50-100 SEEN Ur Squamous Epith Cells 0 SEEN Urine Bacteria 4+ Urine Mucus 0 SEEN Blood Type O POSITIVE Antibody Screen NEGATIVE 09/23/18 02:34 WBC RBC Hgb Hct MCV MCH MCHC RDW RDW Differential Plt Count MPV Immature Gran % (Auto) Neut % (Auto) Lymph % (Auto) [place] % (Auto) Eos % (Auto) Baso % (Auto) Absolute Neuts (auto) Absolute Lymphs (auto) Total Counted Differential Comment Polychromasia Hypochromasia Anisocytosis Microcytosis PT INR APTT Specimen Type FABI Sample Site R Femoral VBG pH 7.41 VBG pO2 109 H VBG O2 Sat (Calc) 98 H VBG O2 Content 24 VBG Base Excess -2 L POC Mix VBG pCO2 Pt Tmp 35.7 L O2 Delivery Device Nasal Can Liter Flow 4.0 Blood Gas Notified Whom ED Sodium Potassium Chloride Carbon Dioxide Anion Gap BUN Creatinine Estim Creat Clear Calc Est GFR (MDRD) Af Amer Est GFR (MDRD) Non-Af BUN/Creatinine Ratio Glucose Lactic Acid Calcium Total Bilirubin AST ALT Alkaline Phosphatase Total Protein Albumin Globulin Albumin/Globulin Ratio Lipase Urine Color Urine Clarity Urine pH Ur Specific [place] Urine Protein Urine Glucose (UA) Urine Ketones Urine Occult Blood Urine Nitrite Urine Bilirubin Urine Urobilinogen Ur Leukocyte Esterase Urine RBC Urine WBC Ur Squamous Epith Cells Urine Bacteria Urine Mucus Blood Type Antibody Screen Assessment/Plan All Active Problems Acute UTI (Acute) GI bleed (Resolved) The patient is a 68 y/o F, resident at [facility] w/ PMHx: Rheumatoid Arthritis, Chronic BL LE Lymphedema, Chronic Hypoxic Respiratory Failure, CVA w/ L sided hemiplegia, Chronic Dysphagia, CAD s/p PCI x 2, HTN, HLD, GERD, Diabetes mellitus type II, Obesity, Chronically Elevated LFTs w/ Fatty Liver, recent discharge on day prior to ED presentation from [place] w/ recent suspected GI bleed w/ upper and lower endoscopies with only notable gastritis with polypectomy x 4 who now presents to the [facility] ED on 09/23/18 with generalized abdominal discomfort and SNF reported low normal BPs. (1) Acute Urinary Tract Infection: Will admit to [facility] upon ED evaluation remarkable, pending UCx, given IVFs in the ED, will hold pending AM access abilities, several trials in the ED including central access attempts and event femoral attempt w/ placement accidentally arterial as noted, will plan AM consultation for PICC versus midline, monitor I/Os, given IM rocephin x 1 in the ED, once access obtained would plan to continue IV Rocephin w/ transition as able pending sensitivities and speciation. Requested Bld cx x 2; however, may be difficult to obtain. (2) Recent GI Bleed secondary to ? Gastritis w/ Normocytic Anemia: Secondary to recent gastritis, GI bleed, admission Hgb 10.8, recent 09/15/18 Hgb 10.4, prior noted 14 range. Maintain on PPI. (3) Hypokalemia: Admission K+ 3.1, supplementation given, repeat level in AM. (4) Thrush: Nystatin SS. (5) Chronic Hypoxic Respiratory Failure: Noted to be on baseline 4L NC, unclear exact etiology aside hypoventilation syndrome, PRN albuterol. (6) CAD: s/p PCI x 2, holding asa given recent bleed history, holding BB given low normal BP, continue statin regimen. (7) Hypertension: Given low normal BP upon presentation and at facility will hold, BP upon evaluation stable, currently access attempts failed, pending AM midline versus PICC. (8) Hyperlipidemia: Continue home statin regimen. (9) Hx CVA: L sided hemiplegia, holding asa given recent bleed history, holding BB given low normal BP, continue statin regimen. (10) Chronic Oropharyngeal Dysphagia: Unclear diet at facility, aphasia noted, notes dysphagia but cannot clarify, speech consulted. (11) Diabetes mellitus type II: Unclear regimen, not on current list, but patient confirmed history, ADA diet, accu checks w/ ISS. (12) Morbid Obesity: Weight loss and lifestyle changes encouraged, nutrition consulted. (13) Rheumatoid arthritis: Continue home Plaquenil and methotrexate regimen. (14) Chronic BL LE Lymphedema: Snug anna wraps, elevation. (15) GERD: PPI as noted. (16) DVT prophylaxis: SCDs, defer chemoprophylaxis given recent discharge from GI bleed presentation. (17) CODE status: Discussed CODE status at length including difference between FULL code, DNR-CCA and DNR-CC status. Following discussions about the differences in these status, requested Full Code status. Advanced Care Planning Face to Face Time: 16 minutes. Code Visit Inpatient E&M: 81422 Init Hosp L3 Procedures: 93440 Advncd Care Plan 30 Min
[2018-09-23] MEDS: Ceftriaxone 1 GM Vial IM (03:42)
--- NOTE | 2018-09-23 03:52 | ED.RN ---
DR. SANCHEZ AWARE OF ROCEPHIN GIVEN PRIOR TO OBTAINING SECOND BLOOD CULTURE. ONLY ABLE TO OBTAIN ONE CULTURE FROM DR. REYNAGA FEM STICK.
--- NOTE | 2018-09-23 04:23 | ED.RN ---
pt gold pendant necklace removed for xray, placed in steril specimen cup and transferred to pcu with pt. report called to [facility] about pt admission.
[2018-09-23 05:18] LABS: Absolute Lymphocyte Count 0.61 X10^3/ul (0.83-4.51); Basophil# 0.01 X10^3/uL; Basophil% 0.1 % (0-1); Eosinophil# 0.01 X10^3/uL; Eosinophils% 0.1 % (0-5); Hematocrit 34.7 % (37-47); Hemoglobin 11.3 g/dl (12.0-15.0); Lymphocyte # 0.61 X10^3/ul (4.0); Lymphocyte % 4.4 % (19-41); Mean Corp Hgb Conc 32.6 g/gl (32-36); Mean Corpuscular Hgb 31.9 pg (27.0-32.0); Mean Platelet Vol. 10.6 fl (6.2-12.0); Neutrophil # 11.99 X10^3/uL (2.7-7.7); Neutrophil % 86.9 % (47-70); Platelet Count 106 K/mm3 (150-450); RBC Distribution Width SD 80.3 fl (35.1-43.9); Red Blood Count 3.54 M/mm3 (4.2-5.4); White Blood Count 13.8 K/mm3 (4.4-11.0)
[2018-09-23 05:22] LABS: Differential Indicated SCAN CRITERIA MET; POSITIVE COUNT NO; POSITIVE DIFFERENTIAL NO; POSITIVE MORPHOLOGY YES
[2018-09-23 05:23] LABS: Anion Gap 12 (5-15); BUN 29 mg/dL (7-18); BUN/Creat Ratio 50.2 RATIO (10-20); Calcium,Total 9.4 mg/dL (8.5-10.1); Chloride 122 mmol/L (98-107); Creatinine, Serum 0.58 mg/dL (0.55-1.02); EST Glomerular Filtration Rate 111 mL/min (>60); Est Glom Filt Rate - Afr Amer 134 mL/min (>60); Estimated Creatinine Clearance 55.07 ml/min; Glucose 85 mg/dL (74-106); Magnesium 1.7 mg/dL (1.6-2.6); Potassium 3.1 mmol/L (3.5-5.1); Sodium Level 156 mmol/L (136-145)
--- NOTE | 2018-09-23 06:25 | ED.VISSUMM ---
- ER Visit Summary Date of Service: 09/23/18 Chief Complaint: Low blood pressure History of Present Illness: The patient is a 68 F who presents with low blood pressure. She had a recent hospitalization for an upper GI bleed. She was transferred to [place]. She had upper and lower endoscopies and was told that the bleeding was coming from her stomach. She also had 4 polyps removed. She does complain of some nausea. She states that her stomach feels uncomfortable but it is not painful. She also had shortness of breath. She is on 4 L of oxygen at home. She denies cough congestion rhinorrhea. No fevers. No chest pain. Physical Examination: Initial blood pressure 94/52 afebrile heart rate 76 respiratory rate 24 pulse ox 100% on 4 L No distress Moist mucous membranes Heart regular rate and rhythm Lungs are clear I do not appreciate rales or wheezing Abdomen soft nontender nondistended She had a small amount of bright red blood on digital rectal exam with brown stool Alert Test Results: EKG shows sinus rhythm at a rate of 76 with a first-degree AV block, right bundle branch block similar to prior. Labs notable for white blood cell count of 13.0, hemoglobin 10.8, hematocrit 33.1. Sodium is 154 with a potassium of 3.1. BUN is 30. Hepatic function notable for mild elevation of ALT and AST at 57 and 49. Lipase normal. INR 1.3. Lactic acid normal at 1.1. Urinalysis shows 500 leukocyte esterase, positive nitrates, 50-100 WBCs with 4+ bacteria. Chest x-ray was read as bilateral lower lobe atelectasis versus effusion versus pneumonia and CT was recommended. CT the chest shows bilateral lower lobe atelectasis versus pneumonia. Emergency Department Course and Treatment: Patient's blood pressure did improve during her course here. Her left arm is edematous. Multiple peripheral IV work attempts were made including under ultrasound guidance of the right arm. Given that the patient's vitals have improved by performed a right femoral venipuncture prior to proceeding with a central venous catheter. On return of labs notable for hypernatremia and UTI I did feel she needed IV access. We had a discussion of risks and benefits including risks of pneumothorax infection or bleeding. After informed consent patient was sterilely prepped and draped her right neck was anesthetized with 1% lidocaine. Under ultrasound guidance attempt was made at central venous catheterization. 3 attempts were made and I was unable to obtain any blood return. At this point we moved to the right femoral site. She was again anesthetized with 1% lidocaine. The wound was cleansed and prepped with chlorhexidine. With the introducer needle I obtained dark red blood. Path was dilated and central catheter was placed. However at this point with aspiration and passing the catheter she was noted to have heavier bleeding and blood appeared to be bright concerning for an inadvertant arterial placement. A blood gas was drawn through the line and sent which is consistent with arterial blood. We do not have vascular surgery I did speak to interventional cardiology for some guidance he noted that this is only a little bit larger than what they would use for PCI. They did agree with my plan for removal and recommended a sandbag for 6 hours after holding pressure. I removed the catheter and bleeding was controlled with direct pressure. The CHIEF DIETITIAN held pressure for 30 minutes and then a dressing was placed in sandbag applied. Bleeding has remained controlled without any saturation of dressing. I did speak to the hospitalist as well and patient was given him intramuscular Rocephin for UTI. Given that blood pressure has remained stable, lactic acid normal, they were agreeable to admitting the patient until further attempts at IV access such as PICC line could be made this morning. Treatment Plan: [] Disposition: Admit Impression: UTI Hypernatremia Central venous catheterization complication, arterial placement This note was generated with [employer] dictation software. It may contain incorrect words, spelling, and punctuation that were not noted in review of the chart prior to signing ED Disposition - Plan for ED Patient: Disposition: Acute Care Hospital [facility]
[2018-09-23 06:47] LABS: Differential Comment SCAN
[2018-09-23 07:10] LABS: Bedside Glucose 81 mg/dL (70-110)
[2018-09-23 07:46] LABS: Thyroid Stim Hormone (TSH) 1.32 uIU/mL (0.358-3.74)
[2018-09-23 12:01] LABS: Bedside Glucose 86 mg/dL (70-110)
--- NOTE | 2018-09-23 14:03 | RAD_ITS ---
STUDY: X-RAY CHEST REASON FOR EXAM: Female, 68 years old. Central line placement. TECHNIQUE: Single AP portable view of the chest. COMPARISON: Comparison is made with prior examination done earlier in the day. FINDINGS: A right-sided subclavian venous catheter has been placed. The tip is at the junction of the superior vena cava and right atrium. Stable bibasilar infiltration and/or atelectasis is worse on the left side. Blunting of the left costophrenic angle. RAD/CXR for Line Placement IMPRESSION: A right-sided segment catheter has been placed. The tip is at the junction of the superior vena cava and right atrium. The remainder the examination is unchanged. Electronically Signed: Karlos Owusu MD at 14:35 EST , Service support ,
--- NOTE | 2018-09-23 14:10 | VDUE_ITS ---
Reason For Study: LUE swelling Left Proximal Left jugular vein is spontaneous, widely patent, phasic, with no intraluminal echogenicity noted. Left subclavian vein is spontaneous, widely patent, phasic, with no intraluminal echogenicity noted. Left Arm Left axillary vein is spontaneous, patent, phasic, competent, compressible and demonstrates augmentation. Left brachial vein is compressible. Cephalic vein non-compressible from wrist to antecubital space with bright intraluminal echoes consistant with chronic clot. Left basilic vein is compressible. Left Lower Arm Left radial vein is compressible. Left ulnar vein is compressible. Interpretation Summary Deep veins of the left upper extremity are patent and compressible segmentally. There is no evidence of deep vein thrombosis. Chronic venous changes are noted in the left cephalic vein from the left wrist to the antecubital space, demonstrating non-compressibility and bright intraluminal echogenicity. The left basilic vein is patent and compressible segmentally. Ordering Physician: Santa Hurst Referring Physician: Shakira Brewer M.D. Performed By: Alina Bowers RVT ?
--- NOTE | 2018-09-23 14:18 | VDLE_ITS ---
Reason For Study: LEG SWELLING RIGHT LEFT GSV is normal. CFV is compressible, spontaneous, phasic, CFV not visualized due to sand bag at groin competent, and demonstrates normal area. augmentation. FV, POP V and T/P trunk assessed with color FV prox/mid assessed with color only. FV only. Unable to visualize in self scale due distal compressible. Spontaneous, phasic to body habitus and arterial calcific doppler signal. shadowing obscuring vein. Phasic , Calf veins and GSV not visualized. spontaneous doppler flow signal. POP V is compressible, spontaneous, phasic, PTV compressible. competent and demonstrates normal PER V not visualized. augmentation. Procedure T/P Trunk is compressible. Exam performed portable in patient room. A preliminary report was called and/or faxed to [facility]. Interpretation Summary Deep veins of the lower extremities appear to be patent bilaterally, without evidence of acute deep vein thrombosis. However, this study was somewhat limited due to multiple factors, including the patient's body habitus and arterial calcification which obscured visualization of certain venous segments. Venous segments which could not be visualized include the right common femoral vein, the right peroneal vein, and the deep veins of the left calf. The right greater saphenous vein appears patent and compressible segmentally. The left greater saphenous vein was not visualized. Ordering Physician: Santa Hurst Referring Physician: Shakira Brewer M.D. Performed By: Alina Bowers RVT and Student
--- NOTE | 2018-09-23 14:20 | PCM.PN.BLA ---
Progress Note Procedure: Right subclavian central line Informed consent: The procedure plan, including indications, benefits and potential complications with discussed with patient and her daughters. The potential need to a secondary procedure, such as chest tube placement to evacuate a pneumothorax, was also conveyed. The patient was appropriately placed to maximize comfort. The site was cleansed and allowed to dry prior to draping the patient. The skin overlying the access site was infiltrated with Lidocaine. The vein was successfully cannulated and a guide wire was inserted. The needle was removed and a vein dilator was advanced over the guidewire. The dilator was removed and a catheter was threaded over the guide wire while maintaining control of the guidewire. The guide wire was removed and each port was sequentially aspirated and then flushed with saline. The catheter was sutured in place and the site was dressed using sterile technique. CXR was obtained and the catheter tip is in the superior vena cava. The patient tolerated the procedure well.
--- NOTE | 2018-09-23 14:24 | PCM.PROGNOTE ---
Patient Problems: Active and Suspected Problems Acute UTI (Acute) MRSA bacteremia (Acute) Subjective: Ms Smith is a 68 YO female with a PMH of rheumatoid arthritis, chronic lower extremity edema, chronic hypoxic respiratory failure, history of CVA with left hemiplegia, dysphagia, coronary artery disease with history of PCI x2, hypertension, hyperlipidemia, GERD, diabetes mellitus type 2, obesity, mild elevated transaminases secondary to fatty infiltration of the liver and recent admission to [facility] for upper GI bleed secondary to gastric ulcer. Dtr states she was transfused with 1 unit of PRBC's in the ED at [facility] prior to transfer to [facility]. She does not think she had any transfusions at [facility]. Colonoscopy had 4 polyps. She has lived in a NH for the past 2 years. She is non-ambulatory and is mostly in bed. She never even gets up to a chair. Over the past 6 months she has had a significant decline. She has not been eating and she sleeps a lot more than she used to. She used to be alert and able to feed herself. Has seen Dr. Ayala in the past and Dr. Brewer is her PCP. Apparently there is an extensive FH of depression. - Physical Exam General: Cooperative, Lethargic, - - looks exhausted and her voice is very soft and labored when speaking HEENT: Atraumatic, PERRLA, EOMI, Normocephalic Oral: No Gingival or Mucosal Lesions/ Ulcerations, Dry Mucosa Neck: Supple, No JVD, Negative Carotid Bruits, No Nodes, No Nuchal Rigidity, Trachea Midline Lungs: No rhonchi, No wheeze, No rales, Diminished Cardiovascular: Regular rate, Regular Rhythm, Normal S1, Normal S2, No murmurs, No rub noted, No Gallop Abdomen: Bowel Sounds Present, Soft, Non-Distended, - - she has pitting in the flanks Extremities: No clubbing, No cyanosis, Diminished Peripheral Pulses, Edema - 4+ pitting edema of the LE's BL and 4+ edema of the LUE.........minimal edema in the RUE. Dtr states that she had a IV in the LUE at [facility]....at the elbow....may have been a midline. There is weeping from the LUE Skin: No rashes, - - she has excoriation in the skin folds of the L elbow and beneath the panus and in the folds of the abd....they do not appear to be infected. she has extensive bruiding on the UE's. Musculoskeletal: Arthritic Changes Neurological: Cranial nerves II-XII grossly intact, - - decreased strength on the left side but she is able to raise the UE off the bed. Vital Signs Temp Pulse Resp BP Pulse Ox 97.5 F L 75 18 97/59 L 100 09/23/18 10:29 09/23/18 11:00 09/23/18 10:29 09/23/18 10:29 09/23/18 10:29 Oxygen Flow Rate (L/min) 2 Oxygen Delivery Method Room Air Weight: 225 lb 4.787 oz Body Mass Index (BMI) 34.2 Finger Stick Blood Glucose 95 Intake and Output for Last 24 Hours 09/21/18 09/22/18 09/23/18 23:59 23:59 23:59 Output Total 0 / 0 Balance 0 / 0 Laboratory Tests Past 24 Hrs 09/23/18 09/23/18 09/23/18 01:00 01:00 01:25 WBC 13.0 H RBC 3.37 L Hgb 10.8 L Hct 33.1 L MCV 98.2 MCH 32.0 MCHC 32.6 RDW 23.1 H RDW Differential 79.3 H Plt Count 122 L MPV 11.2 Immature Gran % (Auto) 0.500 Neut % (Auto) 88.2 H Lymph % (Auto) 5.0 L [place] % (Auto) 6.2 Eos % (Auto) 0.0 Baso % (Auto) 0.1 Absolute Neuts (auto) 11.5 H Absolute Lymphs (auto) 0.65 L Total Counted Not Reportable Differential Comment SCAN Polychromasia 1+ Hypochromasia 1+ Anisocytosis 1+ Microcytosis 1+ PT 16.3 H INR 1.3 APTT 31.7 Specimen Type Sample Site VBG pH VBG pO2 VBG O2 Sat (Calc) VBG O2 Content VBG Base Excess POC Mix VBG pCO2 Pt Tmp O2 Delivery Device Liter Flow Blood Gas Notified Whom Sodium 154 H Potassium 3.1 L Chloride 121 H Carbon Dioxide 24.0 Anion Gap 9 BUN 30 H Creatinine 0.60 Estim Creat Clear Calc 55.07 Est GFR (MDRD) Af Amer 127 Est GFR (MDRD) Non-Af 105 BUN/Creatinine Ratio 49.8 H Glucose 86 Lactic Acid Calcium 9.3 Magnesium Total Bilirubin 0.80 AST 49 H ALT 57 H Alkaline Phosphatase 115 Total Protein 5.2 L Albumin 2.0 L Globulin 3.2 Albumin/Globulin Ratio 0.6 L Lipase 36 L TSH Cortisol Urine Color Urine Clarity Urine pH Ur Specific [place] Urine Protein Urine Glucose (UA) Urine Ketones Urine Occult Blood Urine Nitrite Urine Bilirubin Urine Urobilinogen Ur Leukocyte Esterase Urine RBC Urine WBC Ur Squamous Epith Cells Urine Bacteria Urine Mucus Blood Type Antibody Screen 09/23/18 09/23/18 09/23/18 01:25 01:28 01:41 WBC RBC Hgb Hct MCV MCH MCHC RDW RDW Differential Plt Count MPV Immature Gran % (Auto) Neut % (Auto) Lymph % (Auto) [place] % (Auto) Eos % (Auto) Baso % (Auto) Absolute Neuts (auto) Absolute Lymphs (auto) Total Counted Differential Comment Polychromasia Hypochromasia Anisocytosis Microcytosis PT INR APTT Specimen Type Sample Site VBG pH VBG pO2 VBG O2 Sat (Calc) VBG O2 Content VBG Base Excess POC Mix VBG pCO2 Pt Tmp O2 Delivery Device Liter Flow Blood Gas Notified Whom Sodium Potassium Chloride Carbon Dioxide Anion Gap BUN Creatinine Estim Creat Clear Calc Est GFR (MDRD) Af Amer Est GFR (MDRD) Non-Af BUN/Creatinine Ratio Glucose Lactic Acid 1.1 Calcium Magnesium Total Bilirubin AST ALT Alkaline Phosphatase Total Protein Albumin Globulin Albumin/Globulin Ratio Lipase TSH Cortisol Urine Color Yellow Urine Clarity Cloudy Urine pH 5.0 Ur Specific [place] 1.025 Urine Protein 30 H Urine Glucose (UA) Normal Urine Ketones 15 H Urine Occult Blood 250 H Urine Nitrite Positive H Urine Bilirubin 1 H Urine Urobilinogen 1 H Ur Leukocyte Esterase 500 H Urine RBC 0-5 SEEN Urine WBC 50-100 SEEN Ur Squamous Epith Cells 0 SEEN Urine Bacteria 4+ Urine Mucus 0 SEEN Blood Type O POSITIVE Antibody Screen NEGATIVE 09/23/18 09/23/18 09/23/18 02:34 05:04 05:04 WBC 13.8 H RBC 3.54 L Hgb 11.3 L Hct 34.7 L MCV 98.0 MCH 31.9 MCHC 32.6 RDW 23.0 H RDW Differential 80.3 H Plt Count 106 L MPV 10.6 Immature Gran % (Auto) 0.500 Neut % (Auto) 86.9 H Lymph % (Auto) 4.4 L [place] % (Auto) 8.0 Eos % (Auto) 0.1 Baso % (Auto) 0.1 Absolute Neuts (auto) 12.0 H Absolute Lymphs (auto) 0.61 L Total Counted Not Reportable Differential Comment SCAN Polychromasia Hypochromasia Anisocytosis Microcytosis PT INR APTT Specimen Type FABI Sample Site R Femoral VBG pH 7.41 VBG pO2 109 H VBG O2 Sat (Calc) 98 H VBG O2 Content 24 VBG Base Excess -2 L POC Mix VBG pCO2 Pt Tmp 35.7 L O2 Delivery Device Nasal Can Liter Flow 4.0 Blood Gas Notified Whom ED MD Sodium 156 H Potassium 3.1 L Chloride 122 H Carbon Dioxide 22.0 Anion Gap 12 BUN 29 H Creatinine 0.58 Estim Creat Clear Calc 55.07 Est GFR (MDRD) Af Amer 134 Est GFR (MDRD) Non-Af 111 BUN/Creatinine Ratio 50.2 H Glucose 85 Lactic Acid Calcium 9.4 Magnesium 1.7 Total Bilirubin AST ALT Alkaline Phosphatase Total Protein Albumin Globulin Albumin/Globulin Ratio Lipase TSH Cortisol Urine Color Urine Clarity Urine pH Ur Specific [place] Urine Protein Urine Glucose (UA) Urine Ketones Urine Occult Blood Urine Nitrite Urine Bilirubin Urine Urobilinogen Ur Leukocyte Esterase Urine RBC Urine WBC Ur Squamous Epith Cells Urine Bacteria Urine Mucus Blood Type Antibody Screen 09/23/18 09/23/18 05:04 07:45 WBC RBC Hgb Hct MCV MCH MCHC RDW RDW Differential Plt Count MPV Immature Gran % (Auto) Neut % (Auto) Lymph % (Auto) [place] % (Auto) Eos % (Auto) Baso % (Auto) Absolute Neuts (auto) Absolute Lymphs (auto) Total Counted Differential Comment Polychromasia Hypochromasia Anisocytosis Microcytosis PT INR APTT Specimen Type Sample Site VBG pH VBG pO2 VBG O2 Sat (Calc) VBG O2 Content VBG Base Excess POC Mix VBG pCO2 Pt Tmp O2 Delivery Device Liter Flow Blood Gas Notified Whom Sodium Potassium Chloride Carbon Dioxide Anion Gap BUN Creatinine Estim Creat Clear Calc Est GFR (MDRD) Af Amer Est GFR (MDRD) Non-Af BUN/Creatinine Ratio Glucose Lactic Acid Calcium Magnesium Total Bilirubin AST ALT Alkaline Phosphatase Total Protein Albumin Globulin Albumin/Globulin Ratio Lipase TSH 1.32 Cortisol 58.70 H Urine Color Urine Clarity Urine pH Ur Specific [place] Urine Protein Urine Glucose (UA) Urine Ketones Urine Occult Blood Urine Nitrite Urine Bilirubin Urine Urobilinogen Ur Leukocyte Esterase Urine RBC Urine WBC Ur Squamous Epith Cells Urine Bacteria Urine Mucus Blood Type Antibody Screen POC Glucose 09/23/18 09/23/18 11:53 07:04 POC Glucose 86 81 Medical Necessity - Tobacco Use Smoking Status: Former smoker Tobacco Use: Non-smoker Assessment/Plan All Active Problems Acute UTI (Acute) GI bleed (Resolved) MRSA bacteremia (Acute) Impressions 1. severe sepsis 2. UTI 3. Recent upper GI bleed secondary to peptic ulcer disease/gastric ulcer-at [facility] 4. Hypokalemia-supplemented 5. Chronic hypoxic respiratory failure 6. Sleep disordered breathing-she was observed having apneic episodes and has never had a sleep study 7. Morbid obesity 8. Severe debility 9. CAD with history of PCI x2 10. Hypertension 11. Hyperlipidemia 12. History of CVA with left hemiplegia 13. Chronic oral pharyngeal dysphagia 14. Diabetes mellitus type 2 15. Rheumatoid arthritis 16. Chronic lower extremity lymphedema 17. GERD 18. Anemia secondary to recent acute blood loss 19. Hypernatremia 20. Hypoalbuminemia T4 and T3, B12,folate, iron studies and ferritin, retic count recheck the lab in the AM D50.45 NS at 75cc/hr Change the antibiotic to Zosyn to cover for possible aspiration MBS tomorrow if she is more alert and able to participate........otherwise will defer until Friday NPO for now Consider a duo tube for feeding CODE STATUS: Discussed code status at length with the patient and her daughters including the difference between FULL CODE, DNR CCA and DNR CC status. All questions were answered. An order for full code was entered into the computer. A total of 20 minutes face to face time was devoted to advanced care planning. The patient was able to make her own decisions and very definitely expressed that she wants to live and wants everything done. Code Visit Inpatient E&M: [id number] [facility] Hosp L3
--- NOTE | 2018-09-23 14:34 | PN_ITS ---
Patient Problems: Active and Suspected Problems Acute UTI (Acute) MRSA bacteremia (Acute) Subjective: Ms Smith is a 68 YO female with a PMH of rheumatoid arthritis, chronic lower extremity edema, chronic hypoxic respiratory failure, history of CVA with left hemiplegia, dysphagia, coronary artery disease with history of PCI x2, hy pertension, hyperlipidemia, GERD, diabetes mellitus type 2, obesity, mild elevated transaminases secondary to fatty infiltration of the liver and recent admission to [facility] for upper GI bleed secondary to gastric ulcer. Dtr states she was transfused with 1 unit of PRBC's in the ED at [facility] prior to transfer to [facility]. She does not think she had any transfusions at [facility]. Colonoscopy had 4 polyps. She has lived in a NH for the past 2 years. She is non-ambulatory and is mostly in bed. She never even gets up to a chair. Over the past 6 months she has had a significant decline. She has not been eating and she sleeps a lot more than she used to. She used to be alert and able to feed herself. Has seen Dr. Ayala in the past and Dr. Brewer is her PCP. Apparently there is an extensive FH of depression. - Physical Exam General: Cooperative, Lethargic, - - looks exhausted and her voice is very soft and labored when speaking HEENT: Atraumatic, PERRLA, EOMI, Normocephalic Oral: No Gingival or Mucosal Lesions/ Ulcerations, Dry Mucosa Neck: Supple, No JVD, Negative Carotid Bruits, No Nodes, No Nuchal Rigidity, Trachea Midline Lungs: No rhonchi, No wheeze, No rales, Diminished Cardiovascular: Regular rate, Regular Rhythm, Normal S1, Normal S2, No murmurs, No rub noted, No Gallop Abdomen: Bowel Sounds Present, Soft, Non-Distended, - - she has pitting in the flanks Extremities: No clubbing, No cyanosis, Diminished Peripheral Pulses, Edema - 4+ pitting edema of the LE's BL and 4+ edema of the LUE.........minimal edema in the RUE. Dtr states that she had a IV in the LUE at [facility]....at the elbow....may have been a midline. There is weeping from the LUE Skin: No rashes, - - she has excoriation in the skin folds of the L elbow and beneath the panus and in the folds of the abd....they do not appear to be infected. she has extensive bruiding on the UE's. Musculoskeletal: Arthritic Changes Neurological: Cranial nerves II-XII grossly intact, - - decreased strength on the left side but she is able to raise the UE off the bed. Vital Signs Temp Pulse Resp BP Pulse Ox 97.5 F L 75 18 97/59 L 100 09/23/18 10:29 09/23/18 11:00 09/23/18 10:29 09/23/18 10:29 09/23/18 10:29 Oxygen Flow Rate (L/min) 2 Oxygen Delivery Method Room Air Weight: 225 lb 4.787 oz Body Mass Index (BMI) 34.2 Finger Stick Blood Glucose 95 Intake and Output for Last 24 Hours 09/21/18 09/22/18 09/23/18 23:59 23:59 23:59 Output Total 0 / 0 Balance 0 / 0 Laboratory Tests Past 24 Hrs 09/23/18 09/23/18 09/23/18 01:00 01:00 01:25 WBC 13.0 H RBC 3.37 L Hgb 10.8 L Hct 33.1 L MCV 98.2 MCH 32.0 MCHC 32.6 RDW 23.1 H RDW Differential 79.3 H Plt Count 122 L MPV 11.2 Immature Gran % (Auto) 0.500 Neut % (Auto) 88.2 H Lymph % (Auto) 5.0 L [place] % (Auto) 6.2 Eos % (Auto) 0.0 Baso % (Auto) 0.1 Absolute Neuts (auto) 11.5 H Absolute Lymphs (auto) 0.65 L Total Counted Not Reportable Differential Comment SCAN Polychromasia 1+ Hypochromasia 1+ Anisocytosis 1+ Microcytosis 1+ PT 16.3 H INR 1.3 APTT 31.7 Specimen Type Sample Site VBG pH VBG pO2 VBG O2 Sat (Calc) VBG O2 Content VBG Base Excess POC Mix VBG pCO2 Pt Tmp O2 Delivery Device Liter Flow Blood Gas Notified Whom Sodium 154 H Potassium 3.1 L Chloride 121 H Carbon Dioxide 24.0 Anion Gap 9 BUN 30 H Creatinine 0.60 Estim Creat Clear Calc 55.07 Est GFR (MDRD) Af Amer 127 Est GFR (MDRD) Non-Af 105 BUN/Creatinine Ratio 49.8 H Glucose 86 Lactic Acid Calcium 9.3 Magnesium Total Bilirubin 0.80 AST 49 H ALT 57 H Alkaline Phosphatase 115 Total Protein 5.2 L Albumin 2.0 L Globulin 3.2 Albumin/Globulin Ratio 0.6 L Lipase 36 L TSH Cortisol Urine Color Urine Clarity Urine pH Ur Specific [place] Urine Protein Urine Glucose (UA) Urine Ketones Urine Occult Blood Urine Nitrite Urine Bilirubin Urine Urobilinogen Ur Leukocyte Esterase Urine RBC Urine WBC Ur Squamous Epith Cells Urine Bacteria Urine Mucus Blood Type Antibody Screen 09/23/18 09/23/18 09/23/18 01:25 01:28 01:41 WBC RBC Hgb Hct MCV MCH MCHC RDW RDW Differential Plt Count MPV Immature Gran % (Auto) Neut % (Auto) Lymph % (Auto) [place] % (Auto) Eos % (Auto) Baso % (Auto) Absolute Neuts (auto) Absolute Lymphs (auto) Total Counted Differential Comment Polychromasia Hypochromasia Anisocytosis Microcytosis PT INR APTT Specimen Type Sample Site VBG pH VBG pO2 VBG O2 Sat (Calc) VBG O2 Content VBG Base Excess POC Mix VBG pCO2 Pt Tmp O2 Delivery Device Liter Flow Blood Gas Notified Whom Sodium Potassium Chloride Carbon Dioxide Anion Gap BUN Creatinine Estim Creat Clear Calc Est GFR (MDRD) Af Amer Est GFR (MDRD) Non-Af BUN/Creatinine Ratio Glucose Lactic Acid 1.1 Calcium Magnesium Total Bilirubin AST ALT Alkaline Phosphatase Total Protein Albumin Globulin Albumin/Globulin Ratio Lipase TSH Cortisol Urine Color Yellow Urine Clarity Cloudy Urine pH 5.0 Ur Specific [place] 1.025 Urine Protein 30 H Urine Glucose (UA) Normal Urine Ketones 15 H Urine Occult Blood 250 H Urine Nitrite Positive H Urine Bilirubin 1 H Urine Urobilinogen 1 H Ur Leukocyte Esterase 500 H Urine RBC 0-5 SEEN Urine WBC 50-100 SEEN Ur Squamous Epith Cells 0 SEEN Urine Bacteria 4+ Urine Mucus 0 SEEN Blood Type O POSITIVE Antibody Screen NEGATIVE 09/23/18 09/23/18 09/23/18 02:34 05:04 05:04 WBC 13.8 H RBC 3.54 L Hgb 11.3 L Hct 34.7 L MCV 98.0 MCH 31.9 MCHC 32.6 RDW 23.0 H RDW Differential 80.3 H Plt Count 106 L MPV 10.6 Immature Gran % (Auto) 0.500 Neut % (Auto) 86.9 H Lymph % (Auto) 4.4 L [place] % (Auto) 8.0 Eos % (Auto) 0.1 Baso % (Auto) 0.1 Absolute Neuts (auto) 12.0 H Absolute Lymphs (auto) 0.61 L Total Counted Not Reportable Differential Comment SCAN Polychromasia Hypochromasia Anisocytosis Microcytosis PT INR APTT Specimen Type FABI Sample Site R Femoral VBG pH 7.41 VBG pO2 109 H VBG O2 Sat (Calc) 98 H VBG O2 Content 24 VBG Base Excess -2 L POC Mix VBG pCO2 Pt Tmp 35.7 L O2 Delivery Device Nasal Can Liter Flow 4.0 Blood Gas Notified Whom ED MD Sodium 156 H Potassium 3.1 L Chloride 122 H Carbon Dioxide 22.0 Anion Gap 12 BUN 29 H Creatinine 0.58 Estim Creat Clear Calc 55.07 Est GFR (MDRD) Af Amer 134 Est GFR (MDRD) Non-Af 111 BUN/Creatinine Ratio 50.2 H Glucose 85 Lactic Acid Calcium 9.4 Magnesium 1.7 Total Bilirubin AST ALT Alkaline Phosphatase Total Protein Albumin Globulin Albumin/Globulin Ratio Lipase TSH Cortisol Urine Color Urine Clarity Urine pH Ur Specific [place] Urine Protein Urine Glucose (UA) Urine Ketones Urine Occult Blood Urine Nitrite Urine Bilirubin Urine Urobilinogen Ur Leukocyte Esterase Urine RBC Urine WBC Ur Squamous Epith Cells Urine Bacteria Urine Mucus Blood Type Antibody Screen 09/23/18 09/23/18 05:04 07:45 WBC RBC Hgb Hct MCV MCH MCHC RDW RDW Differential Plt Count MPV Immature Gran % (Auto) Neut % (Auto) Lymph % (Auto) [place] % (Auto) Eos % (Auto) Baso % (Auto) Absolute Neuts (auto) Absolute Lymphs (auto) Total Counted Differential Comment Polychromasia Hypochromasia Anisocytosis Microcytosis PT INR APTT Specimen Type Sample Site VBG pH VBG pO2 VBG O2 Sat (Calc) VBG O2 Content VBG Base Excess POC Mix VBG pCO2 Pt Tmp O2 Delivery Device Liter Flow Blood Gas Notified Whom Sodium Potassium Chloride Carbon Dioxide Anion Gap BUN Creatinine Estim Creat Clear Calc Est GFR (MDRD) Af Amer Est GFR (MDRD) Non-Af BUN/Creatinine Ratio Glucose Lactic Acid Calcium Magnesium Total Bilirubin AST ALT Alkaline Phosphatase Total Protein Albumin Globulin Albumin/Globulin Ratio Lipase TSH 1.32 Cortisol 58.70 H Urine Color Urine Clarity Urine pH Ur Specific [place] Urine Protein Urine Glucose (UA) Urine Ketones Urine Occult Blood Urine Nitrite Urine Bilirubin Urine Urobilinogen Ur Leukocyte Esterase Urine RBC Urine WBC Ur Squamous Epith Cells Urine Bacteria Urine Mucus Blood Type Antibody Screen POC Glucose 09/23/18 09/23/18 11:53 07:04 POC Glucose 86 81 Medical Necessity - Tobacco Use Smoking Status: Former smoker Tobacco Use: Non-smoker Assessment/Plan All Active Problems Acute UTI (Acute) GI bleed (Resolved) MRSA bacteremia (Acute) Impressions 1. severe sepsis 2. UTI 3. Recent upper GI bleed secondary to peptic ulcer disease/gastric ulcer-at [facility] 4. Hypokalemia-supplemented 5. Chronic hypoxic respiratory failure 6. Sleep disordered breathing-she was observed having apneic episodes and has never had a sleep study 7. Morbid obesity 8. Severe debility 9. CAD with history of PCI x2 10. Hypertension 11. Hyperlipidemia 12. History of CVA with left hemiplegia 13. Chronic oral pharyngeal dysphagia 14. Diabetes mellitus type 2 15. Rheumatoid arthritis 16. Chronic lower extremity lymphedema 17. GERD 18. Anemia secondary to recent acute blood loss 19. Hypernatremia 20. Hypoalbuminemia T4 and T3, B12,folate, iron studies and ferritin, retic count recheck the lab in the AM D50.45 NS at 75cc/hr Change the antibiotic to Zosyn to cover for possible aspiration MBS tomorrow if she is more alert and able to participate........otherwise will defer until Friday NPO for now Consider a duo tube for feeding CODE STATUS: Discussed code status at length with the patient and her daughters including the difference between FULL CODE, DNR CCA and DNR CC status. All questions were answered. An order for full code was entered into the computer. A total of 20 minutes face to face time was devoted to advanced care planning. The patient was able to make her own decisions and very definitely expressed that she wants to live and wants everything done. Code Visit Inpatient E&M: [id number] [facility] Hosp L3
[2018-09-23 15:10] LABS: Vitamin B12 1570 pg/mL (211-911)
[2018-09-23 15:14] LABS: Ferritin 516 ng/mL (8-252); Free T3 1.2 pg/mL (2.18-3.98); Iron 44 ug/dL (50-170); Iron Binding Capacity,Total 240 ug/dL (250-450); PERCENT IRON SATURATION 18.3 % (15.0-55.0); Phosphorus 2.7 mg/dL (2.5-4.9)
[2018-09-23 15:24] LABS: Immature Platelet Fraction 10.5 % (1.0-7.9); RET-HE 31.6 pg (30-35); Reticulocyte Count 2.86 % (0.5-1.5)
[2018-09-23] MEDS: Potassium Chloride 20 MEQ in Dext 5%-0.45% NS 1,000 ML 75 ML IV (15:26)
[2018-09-23] MEDS: Potassium Chloride 20mEq/100mL 20 MEQ/100 ML IV.SOLN. 100 MEQ IV BOLUS (16:36)
[2018-09-23 18:46] LABS: Bedside Glucose 101 mg/dL (70-110)
[2018-09-23 21:32] LABS: Absolute Nucleated RBC Count 0.06 10^3/uL (0-5); NRBC Flagged by Analyzer 0.5 % (0-5)
[2018-09-23] MEDS: Nystatin Powder 15gm Bottle 1 APPLIC TOPICAL (23:33)
[2018-09-24] VITALS (11 sets, daily range): BP systolic 94–113; BP diastolic 45–65; PULSE 65–91; RESP 12–16; TEMP 35.5–36.3; O2SAT 95–100
[2018-09-24 02:05] LABS: Bedside Glucose 117 mg/dL (70-110)
--- NOTE | 2018-09-24 02:06 | NURSING ---
Dr. Anaya here to put stitch in central line, line that came loose. Dressing changed at this time.
--- NOTE | 2018-09-24 02:51 | PCM.RX.CS ---
Consult Pharmacy has been consulted to manage selected antiobiotic: Vancomycin Type of Consult: New start Labs: Sodium 156 mmol/L (136-145) H 09/23/18 05:04 Potassium 3.1 mmol/L (3.5-5.1) L 09/23/18 05:04 Chloride 122 mmol/L (98-107) H 09/23/18 05:04 Carbon Dioxide 22.0 mmol/L (21.0-32.0) 09/23/18 05:04 Anion Gap 12 (5-15) 09/23/18 05:04 BUN 29 mg/dL (7-18) H 09/23/18 05:04 Creatinine 0.58 mg/dL (0.55-1.02) 09/23/18 05:04 Est GFR (MDRD) Af Amer 134 mL/min (>60) 09/23/18 05:04 Est GFR (MDRD) Non-Af 111 mL/min (>60) 09/23/18 05:04 BUN/Creatinine Ratio 50.2 RATIO (10-20) H 09/23/18 05:04 Glucose 85 mg/dL (74-106) 09/23/18 05:04 Microbiology: Microbiology 09/23/18 01:25 Blood Culture (Wb) - Femoral Artery Blood Culture - Preliminary Weight used for dosin.2 kg Estimated Creatinine Clearance: 55.07 Goal Trough: 15-20 mcg/mL Pharmacy Plan for Drug Dosing: Pharmacy Service will continue to monitor and adjust dosing as required. Medications Vancomycin HCl (Vancomycin) 1,000 mg in 200 mls @ 200 mls/hr IV Q12H JOSE Discontinued Medications Vancomycin HCl 2,000 mg/ (Sodium Chloride) 540 mls @ 250 mls/hr IV X1 ONE Stop: 09/24/18 00:09 Last Admin: 09/23/18 23:34 Dose: 250 mls/hr Follow-Up Labs: Trough Vancomycin Labs to be done on [date and time ordered]: 09/25 @ [id number]
[2018-09-24] MEDS: Potassium Chloride 20 MEQ in Dext 5%-0.45% NS 1,000 ML 75 ML IV (05:20)
[2018-09-24 06:29] LABS: BUN 29 mg/dL (7-18); Creatinine, Serum 0.68 mg/dL (0.55-1.02); Estimated Creatinine Clearance 55.07 ml/min; Glucose 154 mg/dL (74-106)
[2018-09-24 06:30] LABS: ALB/GLOB Ratio 0.7 RATIO (0.9-2.4); AST(SGOT) 46 U/L (15-37); Alanine Aminotransfer ALT/SGPT 48 U/L (13-56); Albumin, Serum 1.8 g/dL (3.2-5.0); Alkaline Phosphatase 102 U/L (45-117); Anion Gap 7 (5-15); BUN/Creat Ratio 42.5 RATIO (10-20); Chloride 124 mmol/L (98-107); Cholesterol 70 mg/dL (200); EST Glomerular Filtration Rate 91 mL/min (>60); Est Glom Filt Rate - Afr Amer 110 mL/min (>60); Globulin 2.5 g/dL (2.2-4.2); High Density Lipoprotein 30 mg/dL; Magnesium 1.6 mg/dL (1.6-2.6); Phosphorus 2.4 mg/dL (2.5-4.9); Potassium 3.4 mmol/L (3.5-5.1); Protein, Total 4.3 g/dL (6.4-8.2); Sodium Level 157 mmol/L (136-145); Triglycerides 119 mg/dL; Very Low Density Lipoprotein 24 mg/dL (5-40)
[2018-09-24] MEDS: Nystatin Powder 15gm Bottle 1 APPLIC TOPICAL ×2 (06:41→21:52)
[2018-09-24 06:47] LABS: Absolute Neutrophil Count 6.5 X10^3/uL (2.0-7.7); Basophil# 0.01 X10^3/uL; Basophil% 0.1 % (0-1); Hematocrit 28.8 % (37-47); Hemoglobin 9.3 g/dl (12.0-15.0); Mean Corp Hgb Conc 32.3 g/gl (32-36); Mean Corpuscular Hgb 31.8 pg (27.0-32.0); Mean Corpuscular Volume 98.6 fL (81-99); Mean Platelet Vol. 11.2 fl (6.2-12.0); Monocyte# 0.68 X10^3/uL; Monocyte% 8.5 % (0-10); Neutrophil # 6.48 X10^3/uL (2.7-7.7); Platelet Count 98 K/mm3 (150-450); RBC Distribution Width SD 78.6 fl (35.1-43.9); Red Blood Count 2.92 M/mm3 (4.2-5.4)
[2018-09-24 06:51] LABS: Differential Indicated SCAN CRITERIA MET; POSITIVE COUNT NO; POSITIVE DIFFERENTIAL NO; POSITIVE MORPHOLOGY YES
[2018-09-24 07:11] LABS: Bedside Glucose 135 mg/dL (70-110)
[2018-09-24 07:48] LABS: Anisocytosis 1+
[2018-09-24] MEDS: Morphine 2 MG/ML Syringe IV ×2 (09:28→16:49)
--- NOTE | 2018-09-24 11:50 | ECHOD_ITS ---
Reason For Study: MRSA Bacteremia Procedure This was a 2D Doppler, Color Flow transthoracic echocardiogram. The study was technically difficult. Exam performed portable in patient room. Left Ventricle Normal LV size. Left ventricular systolic function is normal. The estimated ejection fraction is 60 %. Stage 1 diastolic dysfunction. No regional wall motion abnormalities noted. Right Ventricle Normal RV size. Normal systolic function. Atria Normal left atrium. Normal right atrium. Mitral Valve Normal mitral valve. Tricuspid Valve Normal tricuspid valve. Aortic Valve Trisinus/trileaflet aortic valve. Mild focal aortic valve calcification. Pulmonic Valve The pulmonic valve is not well visualized. Great Vessels Normal aortic root. The pulmonary artery is normal size. Normal inferior vena cava. Pericardium/Pleural No pericardial effusion. MMode/2D Measurements & Calculations LVIDd: 3.6 cm IVSd: 1.5 cm Ao root diam: 3.3 cm LVIDs: 1.9 cm LVPWd: 1.3 cm RVDd: 3.3 cm FS: 46.5 % LAV(MOD-bp): 32.6 ml LA A4 area: 12.8 cm2 LA dimension(2D): 3.4 cm LAV(MOD-bp) Indexed: 15.2 ml/m2 LAV(MOD-sp2): 33.1 ml LAV(MOD-sp4): 30.2 ml RA A4 area: 9.3 cm2 Doppler Measurements & Calculations MV E max patel: 58.9 cm/sec Lat Peak E' Patel: 5.4 cm/sec Med Peak E' Patel: 4.6 cm/sec MV A max patel: 91.3 cm/sec E/E' lat: 11.0 E/E' med: 12.9 MV E/A: 0.64 Ao V2 max: 92.7 cm/sec LV V1 max: 89.1 cm/sec PA V2 max: 67.3 cm/sec Ao max P.4 mmHg LV V1 max P.2 mmHg Ao V2 mean: 69.2 cm/sec Ao mean P.0 mmHg Ao V2 VTI: 17.5 cm Interpretation Summary Normal LV size. Left ventricular systolic function is normal. The estimated ejection fraction is 60 %. Stage 1 diastolic dysfunction. Mild focal aortic valve calcification. Ordering Physician: Santa Hurst Referring Physician: Shakira Brewer Performed By: Viola Causey, JOSEFA, RVT
--- NOTE | 2018-09-24 11:57 | PN_ITS ---
Patient Problems: Active and Suspected Problems Acute UTI (Acute) MRSA bacteremia (Acute) Subjective: Day #2 vancomycin, day #3 Zosyn All events the past 24 hours been reviewed Temp this a.m. is 97.3. Vital signs are stable and the pulse ox on room air is 98%. Urine culture is positive for greater than 100,000 colonies of presumptive E. coli and blood cultures are positive for MRSA. All lab was personally reviewed. Sodium is high at 157 and the potassium is 3.4, up from 3.1 yesterday. Serum bicarb is 26. BUN is 29 and the creatinine is 0.68. Hemoglobin has dropped to 9.3 from 11.3 on 09/23/2018 with hydration. Platelet count is still low at 98,000. Blood cell count is 8.0 with left shift. Albumin is 1.8 B12 was normal. TSH and T4 were both normal and the cortisol is high at 58.7 which is appropriate for severe sepsis. Vancomycin trough is 27.9 Echo with 60% left ventricular ejection fraction and stage I diastolic dysfunction. She is c/o total body pain. Once again not using her voice but pointing. She rarely moves. Mouth breathing and having apneic episodes. Breathing is not labored. Blood sugars are well controlled Objective: - Physical Exam General: Cooperative, Lethargic, not speaking....mostly pointing HEENT: Atraumatic, PERRLA, EOMI, Normocephalic Oral: No Gingival or Mucosal Lesions/ Ulcerations, Dry Mucosa Neck: Supple, No JVD, Negative Carotid Bruits, No Nodes, No Nuchal Rigidity, Trachea Midline Lungs: No rhonchi, No wheeze, No rales, Diminished Cardiovascular: Regular rate, Regular Rhythm, Normal S1, Normal S2, No murmurs, No rub noted, No Gallop Abdomen: Bowel Sounds Present, Soft, Non-Distended, - - she has pitting in the flanks Extremities: No clubbing, No cyanosis, Diminished Peripheral Pulses, Edema - 4+ pitting edema of the LE's BL and 4+ edema of the LUE.........minimal edema in the RUE. Venous US of the LUE is negative for DVT....she has a chronic superficial clot Skin: No rashes, - - she has excoriation in the skin folds of the L elbow and beneath the pannus and in the folds of the abd....they do not appear to be infected. she has extensive bruising on the UE's. Musculoskeletal: Arthritic Changes Neurological: Cranial nerves II-XII grossly intact, - - decreased strength on the left side but she is able to raise the UE off the bed. - Physical Exam Vital Signs Temp Pulse Resp BP Pulse Ox 97.3 F L 91 16 113/45 L 98 09/24/18 09:24 09/24/18 09:24 09/24/18 09:24 09/24/18 09:24 09/24/18 09:24 Oxygen Flow Rate (L/min) 2 Oxygen Delivery Method Room Air Weight: 225 lb 4.787 oz Body Mass Index (BMI) 34.2 Finger Stick Blood Glucose 95 Intake and Output for Last 24 Hours 09/22/18 09/23/18 09/24/18 23:59 23:59 23:59 Intake Total 224 / 224 1495 / 1495 Output Total 0 / 0 Balance 224 / 224 1495 / 1495 Microbiology Past 72 Hours 09/23/18 01:25 Bacteria Detection (PCR) - Final Blood Culture (Wb) - Femoral Artery Staphylococcus aureus Blood Culture - Preliminary 09/23/18 01:41 Urine Culture - Preliminary Urine, Catheterized Presumptive E. coli Laboratory Tests Past 24 Hrs 09/23/18 09/23/18 09/23/18 01:00 05:04 05:04 WBC RBC Hgb Hct MCV MCH MCHC RDW RDW Differential Plt Count MPV Immature Gran % (Auto) Neut % (Auto) Lymph % (Auto) [place] % (Auto) Eos % (Auto) Baso % (Auto) Absolute Neuts (auto) Absolute Lymphs (auto) Total Counted Nucleated RBC % 0.5 Immature Plt Fraction 10.5 H Anisocytosis Retic Count 2.86 H Absolute Retic 0.06 Immature Retic Fraction 29.40 H Retic Hgb Equivalent 31.6 Sodium Potassium Chloride Carbon Dioxide Anion Gap BUN Creatinine Estim Creat Clear Calc Est GFR (MDRD) Af Amer Est GFR (MDRD) Non-Af BUN/Creatinine Ratio Glucose Calcium Phosphorus 2.7 Magnesium Iron 44 L TIBC 240 L Iron Saturation 18.3 Ferritin 516 H Total Bilirubin AST ALT Alkaline Phosphatase Total Protein Albumin Globulin Albumin/Globulin Ratio Triglycerides Cholesterol LDL Cholesterol VLDL Cholesterol HDL Cholesterol Vitamin B12 RBC Folate Hemolysate RBC Folate Hematocrit Free T4 1.40 Free T3 pg/dL 1.2 L 09/23/18 09/24/18 09/24/18 07:45 05:50 05:50 WBC 8.0 RBC 2.92 L Hgb 9.3 L Hct 28.8 L MCV 98.6 MCH 31.8 MCHC 32.3 RDW 23.0 H RDW Differential 78.6 H Plt Count 98 L MPV 11.2 Immature Gran % (Auto) 0.400 Neut % (Auto) 81.0 H Lymph % (Auto) 10.0 L [place] % (Auto) 8.5 Eos % (Auto) 0.0 Baso % (Auto) 0.1 Absolute Neuts (auto) 6.5 Absolute Lymphs (auto) 0.80 L Total Counted Not Reportable Nucleated RBC % Immature Plt Fraction Anisocytosis 1+ Retic Count Absolute Retic Immature Retic Fraction Retic Hgb Equivalent Sodium Potassium Chloride Carbon Dioxide Anion Gap BUN Creatinine Estim Creat Clear Calc Est GFR (MDRD) Af Amer Est GFR (MDRD) Non-Af BUN/Creatinine Ratio Glucose Calcium Phosphorus Magnesium Iron TIBC Iron Saturation Ferritin Total Bilirubin AST ALT Alkaline Phosphatase Total Protein Albumin Globulin Albumin/Globulin Ratio Triglycerides Cholesterol LDL Cholesterol VLDL Cholesterol HDL Cholesterol Vitamin B12 1570 H RBC Folate Hemolysate Pending RBC Folate Pending Hematocrit Pending Free T4 Free T3 pg/dL 09/24/18 05:50 WBC RBC Hgb Hct MCV MCH MCHC RDW RDW Differential Plt Count MPV Immature Gran % (Auto) Neut % (Auto) Lymph % (Auto) [place] % (Auto) Eos % (Auto) Baso % (Auto) Absolute Neuts (auto) Absolute Lymphs (auto) Total Counted Nucleated RBC % Immature Plt Fraction Anisocytosis Retic Count Absolute Retic Immature Retic Fraction Retic Hgb Equivalent Sodium 157 H Potassium 3.4 L Chloride 124 H Carbon Dioxide 26.0 Anion Gap 7 BUN 29 H Creatinine 0.68 Estim Creat Clear Calc 55.07 Est GFR (MDRD) Af Amer 110 Est GFR (MDRD) Non-Af 91 BUN/Creatinine Ratio 42.5 H Glucose 154 H Calcium 9.0 Phosphorus 2.4 L Magnesium 1.6 Iron TIBC Iron Saturation Ferritin Total Bilirubin 0.60 AST 46 H ALT 48 Alkaline Phosphatase 102 Total Protein 4.3 L Albumin 1.8 L Globulin 2.5 Albumin/Globulin Ratio 0.7 L Triglycerides 119 Cholesterol 70 LDL Cholesterol 16 VLDL Cholesterol 24 HDL Cholesterol 30 L Vitamin B12 RBC Folate Hemolysate RBC Folate Hematocrit Free T4 Free T3 pg/dL POC Glucose 09/24/18 09/24/18 09/23/18 06:50 01:58 18:28 POC Glucose 135 H 117 H 101 09/23/18 11:53 POC Glucose 86 Medical Necessity - Tobacco Use Smoking Status: Former smoker Tobacco Use: Non-smoker Assessment/Plan All Active Problems Acute UTI (Acute) GI bleed (Resolved) MRSA bacteremia (Acute) Impressions 1. severe sepsis with E.Coli in the urine and MRSA in the blood 2. UTI 3. Recent upper GI bleed secondary to peptic ulcer disease/gastric ulcer-at [facility] 4. Hypokalemia-supplemented 5. Chronic hypoxic respiratory failure 6. Sleep disordered breathing-she was observed having apneic episodes and has never had a sleep study 7. Morbid obesity 8. Severe debility 9. CAD with history of PCI x2 10. Hypertension 11. Hyperlipidemia 12. History of CVA with left hemiplegia 13. Chronic oral pharyngeal dysphagia 14. Diabetes mellitus type 2 15. Rheumatoid arthritis 16. Chronic lower extremity lymphedema 17. GERD 18. Anemia secondary to recent acute blood loss 19. Hypernatremia 20. Hypoalbuminemia Continue the Zosyn and the Vanco Consult Dr. Sam Continue IV fluids-D5 half-normal saline with 10 mEq of potassium Repeat blood cultures today Echocardiogram to evaluate for vegetations Check lab in the a.m. Supplement phosphorus with potassium phosphate Refuses Stu wraps or compression stockings Hold methotrexate in light of MRSA bacteremia This woman does nothing to participate in her care since she has been at the [facility]. She is not on an anti-depressant. I suspect she would benefit from and antidepressant and psychotherapy
[2018-09-24] MEDS: Vancomycin IV 1,000 MG/200 ML BAG 200 MG IV ×2 (12:25→23:42)
[2018-09-24] MEDS: Insulin Lispro 100 UNIT/ML INSULN.PEN SC ×2 (12:25→17:38)
--- NOTE | 2018-09-24 12:29 | CON.PCM_ITS ---
Problem List (1) MRSA bacteremia Status: Acute Reason for Consult: mrsa Consulted by: Dr. Hurst History of Present Illness: The patient is a 68 year old F with RA, hemiplegia due to stroke, lymphedema, recently admitted to [facility] for GI bleed. Discharged to [facility] after upper and lower scopes done. Has not been feeling well, c/o some lower abd and chest pain. No new rash. No new joint pain. RUE with some swelling. No prior h/o MRSA. Admitted here on ceftriaxone for possible uti, changed to zosyn for pneumonia/aspiration coverage. Now bcx with MRSA, vanc added last night. Full ROS performed and neg except as noted above. Family provided most of history. Has hardware in R knee, no nee pain there. - Medical History Past Medical History (Chronic Problems): Chronic Problems Normocytic anemia (Chronic) CAD (coronary artery disease) (Chronic) CVA (cerebral vascular accident) (Chronic) HTN (hypertension) (Chronic) HLD (hyperlipidemia) (Chronic) Diabetes mellitus, type II (Chronic) Dysphagia as late effect of cerebrovascular accident (CVA) (Chronic) Obesity (BMI 30-39.9) (Chronic) GERD (gastroesophageal reflux disease) (Chronic) Anxiety and depression (Chronic) Allergies/Adverse Reactions: Allergies clopidogrel bisulfate [From Plavix] Adverse Reaction (Verified 09/23/18 00:09) Unknown erythromycin base [Erythromycin Base] Adverse Reaction (Verified 09/23/18 00:09) Pain in joints tetracycline [Tetracycline] Adverse Reaction (Verified 09/23/18 00:09) Unknown Home Medications: Ambulatory Orders Medication Instructions Recorded Aspirin E.C. [Ecotrin] 81 mg PO DAILY@79903/18/16 Atenolol [Tenormin] 25 mg PO DAILY 03/18/16 Atorvastatin Calcium [Lipitor] 40 mg PO QHS 03/18/16 Folic Acid 1 mg PO DAILY@79903/18/16 Hydroxychloroquine [Plaquenil] 200 mg PO BIDCM 03/18/16 [place]-3 Fatty Acids/Fish Oil 1 cap PO DAILY 03/18/16 [[place] 3 Fish Oil Softgel] Docusate Sodium [Colace] 100 mg PO PRN PRN 09/15/18 Potassium Chloride [Klor-Con M20] 20 meq PO DAILY 09/15/18 traZODone [Desyrel] 25 mg PO QHS 09/15/18 Ascorbic Acid [Vitamin C] 500 mg PO DAILY@0800 09/23/18 Methotrexate Sodium [Methotrexate] 2.5 mg PO FR 09/23/18 Multivit,Tx with Iron,Minerals 1 each PO DAILY 09/23/18 [Thera-M] Pantoprazole Sodium [Protonix] 40 mg PO BID 09/23/18 Polyethylene Glycol 3350 [Miralax] 34 gm PO DAILY PRN 09/23/18 Zolpidem Tartrate [Ambien 5 mg PO QHS PRN PRN 09/23/18 (Generic)] - Social History Lives: in assisted living SMOKING STATUS:: Former smoker Vital Signs Temp Pulse Resp BP Pulse Ox 97.3 F L 91 16 113/45 L 98 09/24/18 09:24 09/24/18 09:24 09/24/18 09:24 09/24/18 09:24 09/24/18 09:24 Oxygen Flow Rate (L/min) 2 Oxygen Delivery Method Room Air Weight: 102.194 kg Body Mass Index (BMI) 34.2 Finger Stick Blood Glucose 95 Microbiology Past 72 Hours 09/23/18 01:25 Bacteria Detection (PCR) - Final Blood Culture (Wb) - Femoral Artery Staphylococcus aureus Blood Culture - Preliminary 09/23/18 01:41 Urine Culture - Preliminary Urine, Catheterized Presumptive E. coli Laboratory Tests Past 24 Hrs 09/23/18 09/23/18 09/23/18 01:00 05:04 05:04 WBC RBC Hgb Hct MCV MCH MCHC RDW RDW Differential Plt Count MPV Immature Gran % (Auto) Neut % (Auto) Lymph % (Auto) [place] % (Auto) Eos % (Auto) Baso % (Auto) Absolute Neuts (auto) Absolute Lymphs (auto) Total Counted Nucleated RBC % 0.5 Immature Plt Fraction 10.5 H Anisocytosis Retic Count 2.86 H Absolute Retic 0.06 Immature Retic Fraction 29.40 H Retic Hgb Equivalent 31.6 Sodium Potassium Chloride Carbon Dioxide Anion Gap BUN Creatinine Estim Creat Clear Calc Est GFR (MDRD) Af Amer Est GFR (MDRD) Non-Af BUN/Creatinine Ratio Glucose Calcium Phosphorus 2.7 Magnesium Iron 44 L TIBC 240 L Iron Saturation 18.3 Ferritin 516 H Total Bilirubin AST ALT Alkaline Phosphatase Total Protein Albumin Globulin Albumin/Globulin Ratio Triglycerides Cholesterol LDL Cholesterol VLDL Cholesterol HDL Cholesterol Vitamin B12 RBC Folate Hemolysate RBC Folate Hematocrit Free T4 1.40 Free T3 pg/dL 1.2 L 09/23/18 09/24/18 09/24/18 07:45 05:50 05:50 WBC 8.0 RBC 2.92 L Hgb 9.3 L Hct 28.8 L MCV 98.6 MCH 31.8 MCHC 32.3 RDW 23.0 H RDW Differential 78.6 H Plt Count 98 L MPV 11.2 Immature Gran % (Auto) 0.400 Neut % (Auto) 81.0 H Lymph % (Auto) 10.0 L [place] % (Auto) 8.5 Eos % (Auto) 0.0 Baso % (Auto) 0.1 Absolute Neuts (auto) 6.5 Absolute Lymphs (auto) 0.80 L Total Counted Not Reportable Nucleated RBC % Immature Plt Fraction Anisocytosis 1+ Retic Count Absolute Retic Immature Retic Fraction Retic Hgb Equivalent Sodium Potassium Chloride Carbon Dioxide Anion Gap BUN Creatinine Estim Creat Clear Calc Est GFR (MDRD) Af Amer Est GFR (MDRD) Non-Af BUN/Creatinine Ratio Glucose Calcium Phosphorus Magnesium Iron TIBC Iron Saturation Ferritin Total Bilirubin AST ALT Alkaline Phosphatase Total Protein Albumin Globulin Albumin/Globulin Ratio Triglycerides Cholesterol LDL Cholesterol VLDL Cholesterol HDL Cholesterol Vitamin B12 1570 H RBC Folate Hemolysate Pending RBC Folate Pending Hematocrit Pending Free T4 Free T3 pg/dL 09/24/18 05:50 WBC RBC Hgb Hct MCV MCH MCHC RDW RDW Differential Plt Count MPV Immature Gran % (Auto) Neut % (Auto) Lymph % (Auto) [place] % (Auto) Eos % (Auto) Baso % (Auto) Absolute Neuts (auto) Absolute Lymphs (auto) Total Counted Nucleated RBC % Immature Plt Fraction Anisocytosis Retic Count Absolute Retic Immature Retic Fraction Retic Hgb Equivalent Sodium 157 H Potassium 3.4 L Chloride 124 H Carbon Dioxide 26.0 Anion Gap 7 BUN 29 H Creatinine 0.68 Estim Creat Clear Calc 55.07 Est GFR (MDRD) Af Amer 110 Est GFR (MDRD) Non-Af 91 BUN/Creatinine Ratio 42.5 H Glucose 154 H Calcium 9.0 Phosphorus 2.4 L Magnesium 1.6 Iron TIBC Iron Saturation Ferritin Total Bilirubin 0.60 AST 46 H ALT 48 Alkaline Phosphatase 102 Total Protein 4.3 L Albumin 1.8 L Globulin 2.5 Albumin/Globulin Ratio 0.7 L Triglycerides 119 Cholesterol 70 LDL Cholesterol 16 VLDL Cholesterol 24 HDL Cholesterol 30 L Vitamin B12 RBC Folate Hemolysate RBC Folate Hematocrit Free T4 Free T3 pg/dL - Other Studies Radiology: [] reviewed Other Studies: [] Route of nutrition/ use of supplements: [] Nutritional Intake: [] IV Site: [] Wallace Catheter: [] - Physical Exam General: Lethargic, - - oriented x2 HEENT: Atraumatic, PERRLA Neck: Supple, No Nodes Lungs: Clear to auscultation, Normal air movement Cardiovascular: Regular rate, Regular Rhythm, No murmurs Abdomen: Soft, Obese Extremities: Edema, - - RUE more swollen, but no tenderness or redness Skin: - - bruising on arms. IV Site: Central Line, without redness Musculoskeletal: No Tenderness to Palpation of Joints or Extremities Neurological: Cranial nerves II-XII grossly intact - Assessment/Plan Antibiotics: [] Assessment/Plan: [] Active and Suspected Problems Acute UTI (Acute) sepsis due to MRSA bacteremia - Hypothermia and leukocytosis improved. Will repeat bcx today, continue vanc, check TTE. No sign of endocarditis on exam, no janeway/osler/splinter hemorrhages on hands or feet. No joint pain/swelling/warmth. May be related to PIV at [place], but no clear signs of cellulitis or abscess on exam. U/s of LUE with some chronic clot. uti - on zosyn, cx pending. Will follow, thank you. D/w Dr. Hurst.
[2018-09-24 12:35] LABS: Bedside Glucose 165 mg/dL (70-110)
--- NOTE | 2018-09-24 14:11 | CASEMGMT ---
Updates sent to [facility]. Tessy JACKSON [employer] WORK[employer]
[2018-09-24 17:46] LABS: Bedside Glucose 175 mg/dL (70-110)
[2018-09-24] MEDS: 0.9% Normal Saline 1,000 ML 999 ML IV (20:09)
[2018-09-24] MEDS: Menthol/Lanolin/Calamine/Znox 113 GM Tube 1 APPLIC TOPICAL (21:50)
[2018-09-25] VITALS (16 sets, daily range): BP systolic 78–112; BP diastolic 52–64; PULSE 58–85; RESP 12–20; TEMP 35.6–36.1; O2SAT 95–98
[2018-09-25] MEDS: Insulin Lispro 100 UNIT/ML INSULN.PEN SC ×4 (00:11→23:16)
[2018-09-25 00:46] LABS: Bedside Glucose 163 mg/dL (70-110)
[2018-09-25] MEDS: Morphine 2 MG/ML Syringe IV ×3 (01:39→18:33)
--- NOTE | 2018-09-25 01:42 | NURSING ---
01:39 pt given morphine for 10/10 generalized pain. bp 96/56
[2018-09-25 07:06] LABS: Bedside Glucose 192 mg/dL (70-110)
[2018-09-25 10:35] LABS: Absolute Lymphocyte Count 0.69 X10^3/ul (0.83-4.51); Absolute Neutrophil Count 5.2 X10^3/uL (2.0-7.7); Hematocrit 29.6 % (37-47); Hemoglobin 9.2 g/dl (12.0-15.0); Lymphocyte # 0.69 X10^3/ul (4.0); Lymphocyte % 10.3 % (19-41); Mean Corp Hgb Conc 31.1 g/gl (32-36); Mean Corpuscular Hgb 30.9 pg (27.0-32.0); Mean Corpuscular Volume 99.3 fL (81-99); Mean Platelet Vol. 10.8 fl (6.2-12.0); Monocyte# 0.72 X10^3/uL; Monocyte% 10.8 % (0-10); Neutrophil # 5.22 X10^3/uL (2.7-7.7); Neutrophil % 78.2 % (47-70); Platelet Count 86 K/mm3 (150-450); RBC Distribution Width CV 23.6 % (11.6-14.6); RBC Distribution Width SD 84.1 fl (35.1-43.9); Red Blood Count 2.98 M/mm3 (4.2-5.4); White Blood Count 6.7 K/mm3 (4.4-11.0)
[2018-09-25 10:36] LABS: Differential Indicated SCAN CRITERIA MET; POSITIVE COUNT NO; POSITIVE DIFFERENTIAL NO; POSITIVE MORPHOLOGY YES
[2018-09-25 10:39] LABS: Albumin, Serum 1.7 g/dL (3.2-5.0); BUN 27 mg/dL (7-18); BUN/Creat Ratio 36.4 RATIO (10-20); Calcium,Total 8.4 mg/dL (8.5-10.1); Chloride 124 mmol/L (98-107); Creatinine, Serum 0.74 mg/dL (0.55-1.02); EST Glomerular Filtration Rate 83 mL/min (>60); Est Glom Filt Rate - Afr Amer 100 mL/min (>60); Estimated Creatinine Clearance 55.07 ml/min; Glucose 203 mg/dL (74-106); Phosphorus 3.9 mg/dL (2.5-4.9); Potassium 3.7 mmol/L (3.5-5.1); Sodium Level 154 mmol/L (136-145)
[2018-09-25 10:55] LABS: Anisocytosis 2+; Differential Comment SCANNED; Macrocytosis 1+; Microcytosis 1+
[2018-09-25] MEDS: Nystatin Powder 15gm Bottle 1 APPLIC TOPICAL ×2 (11:30→21:32)
[2018-09-25] MEDS: Menthol/Lanolin/Calamine/Znox 113 GM Tube 1 APPLIC TOPICAL ×2 (11:31→21:32)
[2018-09-25] MEDS: Vancomycin IV 1,000 MG/200 ML BAG 200 MG IV (11:32)
[2018-09-25 11:43] LABS: Vancomycin, Trough Level 27.9 ug/mL (5.0-15.0)
[2018-09-25 12:05] LABS: Bedside Glucose 169 mg/dL (70-110)
--- NOTE | 2018-09-25 13:28 | PCM.PN.ID ---
Patient Problems: Active and Suspected Problems Acute UTI (Acute) MRSA bacteremia (Acute) - Physical Exam General: Cooperative, No apparent distress, Lethargic Lungs: Clear to auscultation, Normal air movement, Diminished Cardiovascular: Regular rate, Regular Rhythm Abdomen: Soft, Non Tender, Non-Distended Extremities: Edema Skin: No rashes Vital Signs Temp Pulse Resp BP Pulse Ox 96.5 F L 81 20 H 88/52 L 98 09/25/18 11:15 09/25/18 11:15 09/25/18 11:15 09/25/18 11:15 09/25/18 11:15 Oxygen Flow Rate (L/min) 2 Oxygen Delivery Method Nasal Cannula Weight: 102.194 kg Body Mass Index (BMI) 34.2 Finger Stick Blood Glucose 95 Intake and Output for Last 24 Hours 09/23/18 09/24/18 09/25/18 23:59 23:59 23:59 Intake Total 224 / 224 2571 / 2571 3258 / 3258 Output Total 0 / 0 Balance 224 / 224 2571 / 2571 3258 / 3258 Microbiology Past 72 Hours 09/23/18 05:04 Bacteria Detection (PCR) - Final Blood Culture (Wb) - Right Hand Blood Culture - Preliminary Staphylococcus aureus 09/23/18 01:25 Bacteria Detection (PCR) - Final Blood Culture (Wb) - Femoral Artery Staphylococcus aureus Blood Culture - Final Meth. resistant Staph. aureus 09/23/18 01:41 Urine Culture - Final Urine, Catheterized Presumptive E. coli Laboratory Tests Past 24 Hrs 09/25/18 09/25/18 09/25/18 10:15 10:15 10:55 WBC 6.7 RBC 2.98 L Hgb 9.2 L Hct 29.6 L MCV 99.3 H MCH 30.9 MCHC 31.1 L RDW 23.6 H RDW Differential 84.1 H Plt Count 86 L MPV 10.8 Immature Gran % (Auto) 0.700 Neut % (Auto) 78.2 H Lymph % (Auto) 10.3 L [place] % (Auto) 10.8 H Eos % (Auto) 0.0 Baso % (Auto) 0.0 Absolute Neuts (auto) 5.2 Absolute Lymphs (auto) 0.69 L Total Counted Not Reportable Differential Comment SCANNED Anisocytosis 2+ Microcytosis 1+ Macrocytosis 1+ Sodium 154 H Potassium 3.7 Chloride 124 H Carbon Dioxide 24.0 BUN 27 H Creatinine 0.74 Estim Creat Clear Calc 55.07 Est GFR (MDRD) Af Amer 100 Est GFR (MDRD) Non-Af 83 BUN/Creatinine Ratio 36.4 H Glucose 203 H Calcium 8.4 L Phosphorus 3.9 Albumin 1.7 L Vancomycin Trough 27.9 H POC Glucose 09/25/18 09/25/18 09/25/18 11:27 06:39 00:08 POC Glucose 169 H 192 H 163 H 09/24/18 17:36 POC Glucose 175 H Medical Necessity - Tobacco Use Smoking Status: Former smoker Tobacco Use: Non-smoker Route of nutrition/ use of supplements: [] Nutritional Intake: [] IV Site: [] Wallace Catheter: [] - Assessment/Plan Antibiotics: [] Assessment/Plan: [] Active and Suspected Problems Acute UTI (Acute) sepsis due to MRSA bacteremia - Hypothermia and leukocytosis improved. Will repeat bcx today, continue vanc, TTE showed no veg. No sign of endocarditis on exam, no janeway/osler/splinter hemorrhages on hands or feet. No joint pain/swelling/warmth. May be related to PIV at [place], but no clear signs of cellulitis or abscess on exam. U/s of LUE with some chronic clot. ecoli complicated uti - on zosyn, will narrow to ceftriaxone Will follow
--- NOTE | 2018-09-25 15:21 | CASEMGMT ---
Notified Leanne at [facility] that patient will be here through the weekend. Tessy JACKSON MSW
[2018-09-25 16:09] LABS: Folate, Hemolysate Test 569.5 ng/mL (Not Estab.); Folate, RBC (Hct) Test 29.2 % (34.0-46.6)
--- NOTE | 2018-09-25 16:41 | PCM.RX.CS ---
Consult Pharmacy has been consulted to manage selected antiobiotic: Vancomycin Type of Consult: Follow-up Suspected Infection: Bacteremia Prior Doses of Antibiotics Received/Current Regimen: Vancomycin 1000mg IV q12h x3 doses Labs: Sodium 154 mmol/L (136-145) H 09/25/18 10:15 Potassium 3.7 mmol/L (3.5-5.1) 09/25/18 10:15 Chloride 124 mmol/L (98-107) H 09/25/18 10:15 Carbon Dioxide 24.0 mmol/L (21.0-32.0) 09/25/18 10:15 Anion Gap 7 (5-15) 09/24/18 05:50 BUN 27 mg/dL (7-18) H 09/25/18 10:15 Creatinine 0.74 mg/dL (0.55-1.02) 09/25/18 10:15 Est GFR (MDRD) Af Amer 100 mL/min (>60) 09/25/18 10:15 Est GFR (MDRD) Non-Af 83 mL/min (>60) 09/25/18 10:15 BUN/Creatinine Ratio 36.4 RATIO (10-20) H 09/25/18 10:15 Glucose 203 mg/dL (74-106) H 09/25/18 10:15 Vancomycin Trough 27.9 ug/mL (5.0-15.0) H 09/25/18 10:55 Microbiology: Microbiology 09/23/18 05:04 Blood Culture (Wb) - Right Hand Bacteria Detection (PCR) - Final 09/23/18 05:04 Blood Culture (Wb) - Right Hand Blood Culture - Preliminary Staphylococcus aureus 09/23/18 01:25 Blood Culture (Wb) - Femoral Artery Bacteria Detection (PCR) - Final Staphylococcus aureus 09/23/18 01:25 Blood Culture (Wb) - Femoral Artery Blood Culture - Final Meth. resistant Staph. aureus 09/23/18 01:41 Urine, Catheterized Urine Culture - Final Presumptive E. coli Weight used for dosin kg Estimated Creatinine Clearance: 74ml/min Goal Trough: 15-20 mcg/mL Pharmacy Plan for Drug Dosing: Pt' trough level came back at 27.9. Recommend holding the 09/25/18 pm dose and drawing a random level in the am of 09/26/18. Pharmacy Service will continue to monitor and adjust dosing as required. Follow-Up Labs: Trough Vancomycin - random Labs to be done on [date and time ordered]: Vancomycin random level 09/26/18 at 0600
[2018-09-25 18:38] LABS: Folates, RBC Test 1950 ng/mL (>498)
[2018-09-25 18:46] LABS: Bedside Glucose 200 mg/dL (70-110)
--- NOTE | 2018-09-25 19:54 | PCM.PROGNOTE ---
Patient Problems: Active and Suspected Problems Acute UTI (Acute) MRSA bacteremia (Acute) Subjective: Day #3 antibiotics-Rocephin and vancomycin All events of the past 24 hours of been reviewed. Temp is variable but overall improved. Vital signs are stable and she is not tachycardic and has a variable BP depending on whether ist is taken on the wrist or the upper arm. White blood cell count is 6.7 today with 78% neutrophils. Hemoglobin is 9.2 and stable Sodium remains high at 154 despite 0.45% normal saline. BUN is 27 and the creatinine is 0.74. Albumin is 1.7 today and the phosphorus is within normal limits. E. coli is sensitive to Rocephin. She initially was making hand motions at me and when I told her I wanted her to speak to me she did and the voice volume was louder than at admission. She is c/o upper abdominal pain. No emesis. Objective: PHYSICAL EXAM: GENERAL: lethargic......minimal movement ORAL: dry mucosa, no mucosal lesions NECK: No JVD, supple, trachea midline LUNGS: CTA, symmetric chest expansion, markedly diminished, poor inspiratory effort, no wheezing, no rhonchi, no rales, continues to have apneic episodes when sleeping, breathing is not labored when awake, even lying flat in bed HEART: RRR, Normal S1 and S2, no rub, no gallop ABDOMEN: soft, NT, ND, BS present, no guarding with palpation EXTREMITIES: no edema, no cyanosis, no calf tenderness SKIN: bruises on the UE's - stable, intertrigo in the skin folds - getting Nystatin powder. NEUROLOGIC: no focal neurologic deficits PSYCH: apathetic, flat - Physical Exam Vital Signs Temp Pulse Resp BP Pulse Ox 97 F L 64 20 H 107/59 L 96 09/25/18 18:21 09/25/18 18:21 09/25/18 18:21 09/25/18 18:21 09/25/18 18:21 Oxygen Flow Rate (L/min) 1 Oxygen Delivery Method Nasal Cannula Weight: 225 lb 4.787 oz Body Mass Index (BMI) 34.2 Finger Stick Blood Glucose 95 Intake and Output for Last 24 Hours 09/23/18 09/24/18 09/25/18 23:59 23:59 23:59 Intake Total 224 / 224 2571 / 2571 3958 / 3958 Output Total 0 / 0 Balance 224 / 224 2571 / 2571 3958 / 3958 Microbiology Past 72 Hours 09/23/18 05:04 Bacteria Detection (PCR) - Final Blood Culture (Wb) - Right Hand Blood Culture - Preliminary Staphylococcus aureus 09/23/18 01:25 Bacteria Detection (PCR) - Final Blood Culture (Wb) - Femoral Artery Staphylococcus aureus Blood Culture - Final Meth. resistant Staph. aureus 09/23/18 01:41 Urine Culture - Final Urine, Catheterized Presumptive E. coli Laboratory Tests Past 24 Hrs 09/24/18 09/25/18 09/25/18 05:50 10:15 10:15 WBC 6.7 RBC 2.98 L Hgb 9.2 L Hct 29.6 L MCV 99.3 H MCH 30.9 MCHC 31.1 L RDW 23.6 H RDW Differential 84.1 H Plt Count 86 L MPV 10.8 Immature Gran % (Auto) 0.700 Neut % (Auto) 78.2 H Lymph % (Auto) 10.3 L [place] % (Auto) 10.8 H Eos % (Auto) 0.0 Baso % (Auto) 0.0 Absolute Neuts (auto) 5.2 Absolute Lymphs (auto) 0.69 L Total Counted Not Reportable Differential Comment SCANNED Anisocytosis 2+ Microcytosis 1+ Macrocytosis 1+ Sodium 154 H Potassium 3.7 Chloride 124 H Carbon Dioxide 24.0 BUN 27 H Creatinine 0.74 Estim Creat Clear Calc 55.07 Est GFR (MDRD) Af Amer 100 Est GFR (MDRD) Non-Af 83 BUN/Creatinine Ratio 36.4 H Glucose 203 H Calcium 8.4 L Phosphorus 3.9 Albumin 1.7 L RBC Folate Hemolysate 569.5 RBC Folate 1950 Hematocrit 29.2 L Vancomycin Trough 09/25/18 10:55 WBC RBC Hgb Hct MCV MCH MCHC RDW RDW Differential Plt Count MPV Immature Gran % (Auto) Neut % (Auto) Lymph % (Auto) [place] % (Auto) Eos % (Auto) Baso % (Auto) Absolute Neuts (auto) Absolute Lymphs (auto) Total Counted Differential Comment Anisocytosis Microcytosis Macrocytosis Sodium Potassium Chloride Carbon Dioxide BUN Creatinine Estim Creat Clear Calc Est GFR (MDRD) Af Amer Est GFR (MDRD) Non-Af BUN/Creatinine Ratio Glucose Calcium Phosphorus Albumin RBC Folate Hemolysate RBC Folate Hematocrit Vancomycin Trough 27.9 H POC Glucose 09/25/18 09/25/18 09/25/18 18:32 11:27 06:39 POC Glucose 200 H 169 H 192 H 09/25/18 00:08 POC Glucose 163 H Medical Necessity - Tobacco Use Smoking Status: Former smoker Tobacco Use: Non-smoker Assessment/Plan All Active Problems Acute UTI (Acute) GI bleed (Resolved) MRSA bacteremia (Acute) Day #4 Rocephin and vancomycin Impressions 1. severe sepsis with E.Coli in the urine and MRSA in the blood 2. UTI 3. Recent upper GI bleed secondary to peptic ulcer disease/gastric ulcer-at [facility] 4. Hypokalemia-supplemented 5. Chronic hypoxic respiratory failure 6. Sleep disordered breathing-she was observed having apneic episodes and has never had a sleep study 7. Morbid obesity 8. Severe debility 9. CAD with history of PCI x2 10. Hypertension 11. Hyperlipidemia 12. History of CVA with left hemiplegia 13. Chronic oral pharyngeal dysphagia 14. Diabetes mellitus type 2 15. Rheumatoid arthritis 16. Chronic lower extremity lymphedema 17. GERD 18. Anemia secondary to recent acute blood loss 19. Hypernatremia 20. Hypoalbuminemia 21. High Vanco trough 22. suspected severe depression 23. malnutrition I have no idea what the volume status is because she is incontinent.......she is very difficult to care for due to her size and inability to help with even rolling on her side in the bed. Lab is improving Appreciate Dr. Sam's input.....repeat blood cultures ordered for 09/24 were apparently not done - will reorder for today Surface ECHO with no vegetations recheck lab in the AM Consider abdulkadir needs a sleep study going forward and an antidepressant. MBS on Friday may need to have a PEG or a duotube Talked with son by himself and he agrees she is likely depressed and likely has DENISA. He has seen a progressive decline in the past 2 years since she had to go to a NH. Code Visit Inpatient E&M: 09448 Subs Hosp L2
[2018-09-25] MEDS: Ondansetron 4 MG/2 ML Vial IV (23:22)
[2018-09-25 23:36] LABS: Bedside Glucose 175 mg/dL (70-110)
[2018-09-26] VITALS (27 sets, daily range): BP systolic 76–108; BP diastolic 40–91; PULSE 72–95; RESP 10–99; TEMP 33.3–36.1; O2SAT 92–100
--- NOTE | 2018-09-26 00:08 | NURSING ---
Talked to son and [id number]. Asked if they were still thinking of hospice. The son stated his sister who makes the medical decisions is driving up from [place] and should arrive on Sat. Then they could address the situation. The family was explained to the reason for the pt not being able to receive pain meds at this time d/t her vitals. The son stated to this RN he wanted to have his mother knocked out so she wouldn't have pain. Was explained that hospice could do a nicer job at keeping their mother more comfortable with medications. He voiced his understanding.
--- NOTE | 2018-09-26 01:45 | RAD_ITS ---
STUDY: X-RAY - ABDOMEN/PELVIS REASON FOR EXAM: Female, 68 years old. Small bowel obstruction TECHNIQUE: 3 views COMPARISON: None. FINDINGS: There is pleural fluid at the LEFT lung base. There is an unremarkable bowel gas pattern. There is no demonstrated free abdominal air. The visualized liver, spleen and kidneys are grossly normal in size and morphology. There is NO evidence of pneumoperitoneum. Normal soft tissue structures. Normal visualized osseous structures. RAD/Abd Decub and/or Erect(Portabl IMPRESSION: Normal x-ray examination of the abdomen and pelvis. There is NO evidence of bowel obstruction. Electronically Signed: Scar Burton MD at 3:06 EST , Service support ,
--- NOTE | 2018-09-26 04:26 | NURSING ---
04:20 Pt calling out to plz help. C/o 10/10 pain in chest/abd area. Very restless in the bed. BP is at 102/79. Pt will be medicated with 1 mg of morphine per the MAR.
[2018-09-26] MEDS: Morphine 2 MG/ML Syringe IV ×2 (04:32→18:12)
[2018-09-26 06:45] LABS: Vancomycin, Random Level 28.7 ug/mL (0.0-15.0)
[2018-09-26] MEDS: Insulin Lispro 100 UNIT/ML INSULN.PEN SC ×4 (06:50→23:24)
[2018-09-26 07:06] LABS: Bedside Glucose 167 mg/dL (70-110)
[2018-09-26] MEDS: Nystatin Powder 15gm Bottle 1 APPLIC TOPICAL ×2 (09:18→22:23)
[2018-09-26] MEDS: Menthol/Lanolin/Calamine/Znox 113 GM Tube 1 APPLIC TOPICAL ×2 (09:18→22:24)
--- NOTE | 2018-09-26 09:30 | NURSING ---
Report called to Brooke in ICU
--- NOTE | 2018-09-26 09:32 | CT_ITS ---
STUDY: CT BRAIN WITHOUT CONTRAST REASON FOR EXAM: Female, 68 years old. Altered mental status, sepsis RADIATION DOSAGE (If Supplied By Facility): CTDIvol = ( 44.99 ) mGy, DLP = ( 846.73 ) mGycm TECHNIQUE: Transaxial CT imaging of the brain was performed without administration of intravenous contrast material. Individualized dose optimization techniques were used for this CT. COMPARISON: 05/29/2014 FINDINGS: Normal soft tissue structures. Normal calvarium. There is mild cerebral atrophy with widening of the extra-axial spaces and ventricular dilatation. Normal white matter tracts of the cerebral hemispheres. Normal basal ganglia and thalami. Normal brainstem. Normal cerebellum. There is atherosclerosis of the carotid siphons and vertebral arteries. There is no intracranial hemorrhage. There are no findings of an acute ischemic infarction. Normal visualized paranasal sinuses. CT/Brain/Head without Contrast IMPRESSION: 1. No acute intracranial hemorrhage or mass effect. 2. Age-appropriate involutional changes. Electronically Signed: Kaushik Scott MD at 10:54 EST , Service support ,
--- NOTE | 2018-09-26 09:35 | PCM.PROGNOTE ---
Patient Problems: Active and Suspected Problems Acute UTI (Acute) MRSA bacteremia (Acute) Subjective: Day #4 antibiotics-Rocephin and vancomycin. Vanco is currently on hold due to a high Vanco trough She remains hypothermic despite improvement in the WBC and diff and antibiotics. TSH and cortisol are normal. Etiology of the persistent hypothermia is ? Central? Blood pressure is labile and has been as low as 78/64 overnight but is currently 97/61. 95% saturation on 1 L. I&O's are not accurate secondary to chronic incontinence-Panchal catheter has been ordered. She seems a little more alert today She continues to c/o muscle pain Blood cultures from 09/25 and 09/26 are pending Objective: PHYSICAL EXAM: GENERAL: lethargic......minimal movement....continues to point rather than talk ORAL: dry mucosa, no mucosal lesions NECK: No JVD, supple, trachea midline LUNGS: CTA, symmetric chest expansion, markedly diminished, poor inspiratory effort, no wheezing, no rhonchi, no rales, continues to have apneic episodes when sleeping, breathing is not labored when awake, even lying flat in bed HEART: RRR, Normal S1 and S2, no rub, no gallop ABDOMEN: soft, NT, ND, BS present, no guarding with palpation EXTREMITIES: edema, no cyanosis, no calf tenderness SKIN: bruises on the UE's - stable, intertrigo in the skin folds - getting Nystatin powder. NEUROLOGIC: no focal neurologic deficits PSYCH: apathetic, flat - Physical Exam Vital Signs Temp Pulse Resp BP Pulse Ox 92.8 F L 83 10 L 102/79 95 09/26/18 08:22 09/26/18 08:22 09/26/18 08:31 09/26/18 08:22 09/26/18 08:31 Oxygen Flow Rate (L/min) 1 Oxygen Delivery Method Nasal Cannula Weight: 225 lb 4.787 oz Body Mass Index (BMI) 34.2 Finger Stick Blood Glucose 95 Intake and Output for Last 24 Hours 09/24/18 09/25/18 09/26/18 23:59 23:59 23:59 Intake Total 2571 / 2571 3958 / 3958 1800 / 1800 Balance 2571 / 2571 3958 / 3958 1800 / 1800 Microbiology Past 72 Hours 09/23/18 05:04 Bacteria Detection (PCR) - Final Blood Culture (Wb) - Right Hand Blood Culture - Preliminary Staphylococcus aureus 09/23/18 01:25 Bacteria Detection (PCR) - Final Blood Culture (Wb) - Femoral Artery Staphylococcus aureus Blood Culture - Final Meth. resistant Staph. aureus 09/23/18 01:41 Urine Culture - Final Urine, Catheterized Presumptive E. coli Laboratory Tests Past 24 Hrs 09/24/18 09/25/18 09/25/18 05:50 10:15 10:15 WBC 6.7 RBC 2.98 L Hgb 9.2 L Hct 29.6 L MCV 99.3 H MCH 30.9 MCHC 31.1 L RDW 23.6 H RDW Differential 84.1 H Plt Count 86 L MPV 10.8 Immature Gran % (Auto) 0.700 Neut % (Auto) 78.2 H Lymph % (Auto) 10.3 L [place] % (Auto) 10.8 H Eos % (Auto) 0.0 Baso % (Auto) 0.0 Absolute Neuts (auto) 5.2 Absolute Lymphs (auto) 0.69 L Total Counted Not Reportable Differential Comment SCANNED Anisocytosis 2+ Microcytosis 1+ Macrocytosis 1+ Sodium 154 H Potassium 3.7 Chloride 124 H Carbon Dioxide 24.0 BUN 27 H Creatinine 0.74 Estim Creat Clear Calc 55.07 Est GFR (MDRD) Af Amer 100 Est GFR (MDRD) Non-Af 83 BUN/Creatinine Ratio 36.4 H Glucose 203 H Calcium 8.4 L Phosphorus 3.9 Albumin 1.7 L RBC Folate Hemolysate 569.5 RBC Folate 1950 Hematocrit 29.2 L Vancomycin Trough Random Vancomycin 09/25/18 09/26/18 10:55 05:30 WBC RBC Hgb Hct MCV MCH MCHC RDW RDW Differential Plt Count MPV Immature Gran % (Auto) Neut % (Auto) Lymph % (Auto) [place] % (Auto) Eos % (Auto) Baso % (Auto) Absolute Neuts (auto) Absolute Lymphs (auto) Total Counted Differential Comment Anisocytosis Microcytosis Macrocytosis Sodium Potassium Chloride Carbon Dioxide BUN Creatinine Estim Creat Clear Calc Est GFR (MDRD) Af Amer Est GFR (MDRD) Non-Af BUN/Creatinine Ratio Glucose Calcium Phosphorus Albumin RBC Folate Hemolysate RBC Folate Hematocrit Vancomycin Trough 27.9 H Random Vancomycin 28.7 H POC Glucose 09/26/18 09/25/18 09/25/18 06:46 23:12 18:32 POC Glucose 167 H 175 H 200 H 09/25/18 11:27 POC Glucose 169 H Medical Necessity - Tobacco Use Smoking Status: Former smoker Tobacco Use: Non-smoker Assessment/Plan All Active Problems Acute UTI (Acute) GI bleed (Resolved) MRSA bacteremia (Acute) Day #5 Rocephin and vancomycin Impressions 1. severe sepsis with E.Coli in the urine and MRSA in the blood 2. UTI 3. Recent upper GI bleed secondary to peptic ulcer disease/gastric ulcer-at [facility] 4. Hypokalemia-supplemented 5. Chronic hypoxic respiratory failure 6. Sleep disordered breathing-she was observed having apneic episodes and has never had a sleep study 7. Morbid obesity 8. Severe debility 9. CAD with history of PCI x2 10. Hypertension 11. Hyperlipidemia 12. History of CVA with left hemiplegia 13. Chronic oral pharyngeal dysphagia 14. Diabetes mellitus type 2 15. Rheumatoid arthritis 16. Chronic lower extremity lymphedema 17. GERD 18. Anemia secondary to recent acute blood loss 19. Hypernatremia 20. Hypoalbuminemia 21. High Vanco trough 22. suspected severe depression 23. malnutrition 24. persistent hypothermia and low BP despite improvement in the infection and the lab......TSH and cortisol normal. Transfer to ICU and consult Dr. Duke to participate in management. CT brain.......chronic involutional changes recheck the lab this afternoon and in the AM Levophed to keep the MAP at at least 65 [place] hug[place] and get the temp up to WNL Unable to get the NG in so will start TPN since she is malnourished and unlikely to eat in the near future Called her dtr Ileana and left a message that she is being moved to the ICU 's again this AM Does she need an LP? Continue the Vanco and the Rocephin insert a panchal with a temp probe to monitor the core temp D5W with KCL at 75 overnight Code Visit Inpatient E&M: [id number] [facility] Hosp L3
--- NOTE | 2018-09-26 09:45 | NURSING ---
Dr. Hurst at bedside updating patient regarding move to ICU. Informed patient that a call was placed to KRISS Tejeda and a message left regarding change of condition and move to ICU.
--- NOTE | 2018-09-26 09:50 | NURSING ---
To CT accompanied by this RN and Student, then transported to ICU at 1020.
--- NOTE | 2018-09-26 11:46 | RAD_ITS ---
STUDY: X-RAY - ABDOMEN/PELVIS REASON FOR EXAM: Female, 68 years old. NG tube placement TECHNIQUE: Single AP view of the abdomen / pelvis. COMPARISON: None. FINDINGS: Generalized paucity of bowel gas without small bowel loop obstruction. NG tube is noted with tip in side port at the GE junction. Recommend advancement. No definite free air RAD/Abdomen Single View (Portable) IMPRESSION: NG tube with tip in side port at the GE junction. Recommend advancement. Electronically Signed: Joe Reddy DO at 14:44 EST Tel , Service support ,
[2018-09-26 12:46] LABS: Bedside Glucose 187 mg/dL (70-110)
--- NOTE | 2018-09-26 13:02 | RAD_ITS ---
STUDY: X-RAY - ABDOMEN/PELVIS REASON FOR EXAM: Female, 68 years old. NG tube placement TECHNIQUE: Single AP view of the abdomen / pelvis. COMPARISON: Plain film earlier FINDINGS: Again noted is the NG tube with tip and side-port at the GE junction region. Again, recommend advancement. Remainder is unchanged RAD/Abdomen Single View (Portable) IMPRESSION: As above Electronically Signed: Joe Reddy DO at 14:45 EST Tel , Service support ,
--- NOTE | 2018-09-26 14:18 | NURSING ---
student nurse charting reviewed.
[2018-09-26] MEDS: 0.9% Normal Saline 1,000 ML 999 ML IV (16:23)
[2018-09-26 16:36] LABS: Bedside Glucose 190 mg/dL (70-110)
[2018-09-26 19:47] LABS: Anion Gap 7 (5-15); BUN 24 mg/dL (7-18); Calcium,Total 7.4 mg/dL (8.5-10.1); Chloride 123 mmol/L (98-107); Creatinine, Serum 0.89 mg/dL (0.55-1.02); EST Glomerular Filtration Rate 67 mL/min (>60); Est Glom Filt Rate - Afr Amer 82 mL/min (>60); Estimated Creatinine Clearance 61.88 ml/min; Glucose 233 mg/dL (74-106); Magnesium 1.3 mg/dL (1.6-2.6); Phosphorus 3.6 mg/dL (2.5-4.9); Potassium 4.1 mmol/L (3.5-5.1); Sodium Level 151 mmol/L (136-145)
[2018-09-26 20:04] LABS: CPK Total, Creatine Kinase 77 U/L (26-192)
[2018-09-26] MEDS: Magnesium Sulfate 4gm/100mL 4 GM/100 ML IV.SOLN. IV (20:46)
--- NOTE | 2018-09-26 22:34 | CPS ---
PT did not tolerate bipap therapy, pt resting comfortably on 2L NC, RN Bonnie aware
[2018-09-27] VITALS (39 sets, daily range): BP systolic 82–123; BP diastolic 42–92; PULSE 63–89; RESP 12–28; TEMP 35.9–36.4; O2SAT 92–100
[2018-09-27 00:36] LABS: Bedside Glucose 246 mg/dL (70-110)
[2018-09-27] MEDS: Insulin Lispro 100 UNIT/ML INSULN.PEN SC ×2 (05:39→12:47)
[2018-09-27 06:22] LABS: ALB/GLOB Ratio 0.6 RATIO (0.9-2.4); AST(SGOT) 42 U/L (15-37); Alanine Aminotransfer ALT/SGPT 57 U/L (13-56); Albumin, Serum 1.5 g/dL (3.2-5.0); Alkaline Phosphatase 102 U/L (45-117); Anion Gap 8 (5-15); BUN 26 mg/dL (7-18); BUN/Creat Ratio 27.6 RATIO (10-20); Calcium,Total 7.8 mg/dL (8.5-10.1); Chloride 121 mmol/L (98-107); Creatinine, Serum 0.94 mg/dL (0.55-1.02); EST Glomerular Filtration Rate 63 mL/min (>60); Est Glom Filt Rate - Afr Amer 76 mL/min (>60); Estimated Creatinine Clearance 58.58 ml/min; Globulin 2.6 g/dL (2.2-4.2); Glucose 327 mg/dL (74-106); Magnesium 2.2 mg/dL (1.6-2.6); Potassium 4.4 mmol/L (3.5-5.1); Protein, Total 4.1 g/dL (6.4-8.2); Sodium Level 149 mmol/L (136-145)
[2018-09-27 06:31] LABS: Phosphorus 4.2 mg/dL (2.5-4.9)
--- NOTE | 2018-09-27 06:31 | PCM.CON.CC ---
Reason for Consult Date of Consultation: 09/27/18 Reason for Consultation: Septic shock History of Present Illness: The patient is a 68-year-old female, with a history as outlined below, who presented initially to the emergency department on September 23 with generalized abdominal pain and hypotension. The patient has a history of rheumatoid arthritis, chronic hypoxemic respiratory failure and prior CVA with left-sided hemiplegia, along with coronary artery disease diabetes and dysphasia. Prior to her admission here, the patient had just been discharged from [facility] and treated for an upper GI bleed presumed secondary to a gastric ulcer. The patient's hospital course to date has included treatment for severe sepsis secondary to a urinary tract infection. She was subsequently found to have E. coli in her urine and MRSA in her bloodstream. Infectious diseases has been following with the patient. A surface echocardiogram showed no evidence of valvular vegetations. Despite being on appropriate antibiotics, the patient has remained hypothermic and hypotensive. Prior evaluation with THS levels and cortisol were normal. Due to the patient's hemodynamic instability and continued hypothermia, the patient was transferred to the medical intensive care unit. The patient did have to be started on levophed upon arrival to the ICU to maintain hemodynamic stability. In addition, the patient was noted to become hypoxic and was placed on BiPAP. As of this morning, the patient is doing well. Her vasopressor support is being weaned. An arterial line was placed this morning by respiratory therapy. In addition, the patient was able to be removed from BiPAP and placed on nasal cannula oxygen. Past Medical History Past Medical History (Chronic Problems): Chronic Problems Normocytic anemia (Chronic) CAD (coronary artery disease) (Chronic) CVA (cerebral vascular accident) (Chronic) HTN (hypertension) (Chronic) HLD (hyperlipidemia) (Chronic) Diabetes mellitus, type II (Chronic) Dysphagia as late effect of cerebrovascular accident (CVA) (Chronic) Obesity (BMI 30-39.9) (Chronic) GERD (gastroesophageal reflux disease) (Chronic) Anxiety and depression (Chronic) Allergies clopidogrel bisulfate [From Plavix] Adverse Reaction (Verified 09/23/18 00:09) Unknown erythromycin base [Erythromycin Base] Adverse Reaction (Verified 09/23/18 00:09) Pain in joints tetracycline [Tetracycline] Adverse Reaction (Verified 09/23/18 00:09) Unknown Home Medications: Ambulatory Orders Medication Instructions Recorded Aspirin E.C. [Ecotrin] 81 mg PO DAILY@0800 03/18/16 Atenolol [Tenormin] 25 mg PO DAILY 03/18/16 Atorvastatin Calcium [Lipitor] 40 mg PO QHS 03/18/16 Folic Acid 1 mg PO DAILY@0800 03/18/16 Hydroxychloroquine [Plaquenil] 200 mg PO BIDCM 03/18/16 Coffeen-3 Fatty Acids/Fish Oil 1 cap PO DAILY 03/18/16 [Coffeen 3 Fish Oil Softgel] Docusate Sodium [Colace] 100 mg PO PRN PRN 09/15/18 Potassium Chloride [Klor-Con M20] 20 meq PO DAILY 09/15/18 traZODone [Desyrel] 25 mg PO QHS 09/15/18 Ascorbic Acid [Vitamin C] 500 mg PO DAILY@0800 09/23/18 Methotrexate Sodium [Methotrexate] 2.5 mg PO FR 09/23/18 Multivit,Tx with Iron,Minerals 1 each PO DAILY 09/23/18 [Thera-M] Pantoprazole Sodium [Protonix] 40 mg PO BID 09/23/18 Polyethylene Glycol 3350 [Miralax] 34 gm PO DAILY PRN 09/23/18 Zolpidem Tartrate [Ambien 5 mg PO QHS PRN PRN 09/23/18 (Generic)] Surgical History: - - PCI x 2, x 3, appendectomy, right knee arthroscopic surgery x 2, right total knee replacement, recent endoscopies with polypectomy x 4. Psychiatric History: Anxiety, Depression [employer] History: No pertinent [employer] TE[employer]ER history Lives: Residential Smoking Status: Former smoker Tobacco Use: Non-smoker Alcohol: None Drugs: None - *Family History Maternal History Items: - - Patient notes a maternal and paternal family history of heart disease. Paternal History Items: - - Patient notes a maternal and paternal family history of heart disease. Review of Systems Constitutional: Reports: Malaise, Weakness Eyes: Denies: Blurred vision, Double vision HEENT: Reports: Difficulty Swallowing Cardiovascular: Denies: Chest Pain, Palpitations Respiratory: Reports: Shortness of Breath Gastrointestinal: Reports: Abdominal Pain Genitourinary: Denies: Dysuria Musculoskeletal: Denies: Joint Pain, Joint Tenderness Skin: Denies: Rash, Wounds Neurological: Reports: Difficulty swallowing Psychiatric: Denies: Anxiety, Depression, Homicidal Ideations, Suicidal Ideations Hematologic/ Lymphatic: Reports: Anemia Objective: The patient's most recent lab work, culture data and imaging studies have all been personally reviewed. Blood cultures dated September 23 were positive for staph aureus. Urine culture dated September 23 was positive for E. coli. Follow-up blood cultures have not revealed anything to date. - Physical Exam General: Alert, Cooperative, No apparent distress HEENT: Atraumatic, PERRLA, Normocephalic Oral: Dry Mucosa Neck: Supple, No Nodes, Trachea Midline Lungs: Diminished, - - Poor patient dependent inspiratory effort Cardiovascular: Regular rate, Regular Rhythm, Normal S1, Normal S2, No murmurs Abdomen: Bowel Sounds Present, Soft, Non Tender Extremities: No clubbing, No cyanosis, Edema Skin: - - Ecchymoses present over upper extremities Musculoskeletal: No Tenderness to Palpation of Joints or Extremities Lymphatic: No Cervical, Supraclavicular, or Inguinal Adenopathy Neurological: Neuro grossly intact Psych/Mental Status: Flat Affect Vital Signs Temp Pulse Resp BP Pulse Ox 36.3 C L 86 22 H 99/64 93 09/27/18 05:00 09/27/18 05:00 09/27/18 05:00 09/27/18 05:00 09/27/18 05:00 Oxygen Flow Rate (L/min) 2 Oxygen Delivery Method Nasal Cannula Weight: 250 lb 0.067 oz Body Mass Index (BMI) 34.2 Finger Stick Blood Glucose 95 Intake and Output for Last 24 Hours 09/25/18 09/26/18 09/27/18 23:59 23:59 23:59 Intake Total 3958 / 3958 4820 / 4820 1009.4 / 1009.4 Output Total 80 / 80 50 / 50 Balance 3958 / 3958 4740 / 4740 959.4 / 959.4 Microbiology Past 72 Hours 09/23/18 05:04 Bacteria Detection (PCR) - Final Blood Culture (Wb) - Right Hand Blood Culture - Preliminary Staphylococcus aureus 09/23/18 01:25 Bacteria Detection (PCR) - Final Blood Culture (Wb) - Femoral Artery Staphylococcus aureus Blood Culture - Final Meth. resistant Staph. aureus 09/23/18 01:41 Urine Culture - Final Urine, Catheterized Presumptive E. coli Laboratory Tests Past 24 Hrs 09/26/18 09/26/18 09/26/18 05:30 19:20 19:20 Sodium 151 H Potassium 4.1 Chloride 123 H Carbon Dioxide 21.0 Anion Gap 7 BUN 24 H Creatinine 0.89 Estim Creat Clear Calc 61.88 Est GFR (MDRD) Af Amer 82 Est GFR (MDRD) Non-Af 67 BUN/Creatinine Ratio 27.0 H Glucose 233 H Calcium 7.4 L Phosphorus 3.6 Magnesium 1.3 L Total Bilirubin AST ALT Alkaline Phosphatase Total Creatine Kinase 77 Total Protein Albumin Globulin Albumin/Globulin Ratio Random Vancomycin 28.7 H 09/27/18 09/27/18 05:35 05:35 Sodium 149 H Potassium 4.4 Chloride 121 H Carbon Dioxide 20.0 L Anion Gap 8 BUN 26 H Creatinine 0.94 Estim Creat Clear Calc 58.58 Est GFR (MDRD) Af Amer 76 Est GFR (MDRD) Non-Af 63 BUN/Creatinine Ratio 27.6 H Glucose 327 H Calcium 7.8 L Phosphorus Pending Magnesium 2.2 Total Bilirubin 0.30 AST 42 H ALT 57 H Alkaline Phosphatase 102 Total Creatine Kinase Total Protein 4.1 L Albumin 1.5 L Globulin 2.6 Albumin/Globulin Ratio 0.6 L Random Vancomycin POC Glucose 09/26/18 09/26/18 09/26/18 23:22 16:18 12:35 POC Glucose 246 H 190 H 187 H 09/26/18 06:46 POC Glucose 167 H Clinical Impression(s) from Imaging Studies Chest X-Ray 09/23/18 00:25 IMPRESSION: Bilateral lower lobe subsegmental atelectasis, effusion and/or pneumonia. Consider correlation with CT chest or CT abdomen and pelvis, the latter of which also includes the lung bases. Electronically Signed: Sya Smith MD at 0:56 EST , Service support , Chest CT 09/23/18 01:20 IMPRESSION: Bilateral lower lobe and to a lesser extent right middle lobe subsegmental atelectasis versus pneumonia. Small right pleural effusion. Coronary artery calcifications. Cholelithiasis/gallbladder sludge. Electronically Signed: Say Smith MD at 3:04 EST , Service support , Chest X-Ray 09/23/18 14:03 IMPRESSION: A right-sided segment catheter has been placed. The tip is at the junction of the superior vena cava and right atrium. The remainder the examination is unchanged. Electronically Signed: Karlos Owusu MD at 14:35 EST , Service support , Abdomen X-Ray 09/26/18 01:45 IMPRESSION: Normal x-ray examination of the abdomen and pelvis. There is NO evidence of bowel obstruction. Electronically Signed: Scar Burton MD at 3:06 EST , Service support , Brain CT 09/26/18 09:32 IMPRESSION: 1. No acute intracranial hemorrhage or mass effect. 2. Age-appropriate involutional changes. Electronically Signed: Kaushik Scott MD at 10:54 EST , Service support , KUB X-Ray 09/26/18 11:46 IMPRESSION: NG tube with tip in side port at the GE junction. Recommend advancement. Electronically Signed: Joe Reddy DO at 14:44 EST Tel , Service support , KUB X-Ray 09/26/18 13:02 IMPRESSION: As above Electronically Signed: Joe Reddy DO at 14:45 EST Tel , Service support , Chest X-Ray 09/27/18 07:51 IMPRESSION: 1. New slight blunting the right costophrenic angle suggesting small volume effusion. 2. Stable bibasilar atelectasis/infiltrates. 3. Stable trace left pleural effusion. Electronically Signed: Kaushik Scott MD at 10:38 EST , Service support , KUB X-Ray 09/27/18 10:01 IMPRESSION: Enteric tube extends to the upper stomach. Electronically Signed: Kaushik Scott MD at 10:20 EST , Service support , Assessment/Plan RECOMMENDATIONS: 1. Respiratory therapy to place arterial line. 2. Wean Levophed to maintain a mean arterial pressure at or above [address] chest, abdomen and pelvis to evaluate for any other potential sources of infection. 4. Continue TPN and attempt to place feeding tube. 5. The patient will be weaned from BiPAP and placed on supplemental oxygen. 6. Recommend gentle diuresis if she is able to be weaned from vasopressor support. IMPRESSIONS: 1. Septic shock secondary to E. coli cystitis and MRSA bacteremia The patient has been on appropriate antibiotics with infectious diseases following. Her vasopressor support is currently being weaned. Would plan to continue Levophed to maintain a mean arterial pressure at or above 65 mmHg. The patient's temperature is gradually improving with time. Would plan to continue current supportive measures. No other infectious etiologies have been identified to date. Could consider obtaining CT chest, abdomen and pelvis for further clarification of the patient's infectious status. Arterial line will be placed this morning. 2. Acute on chronic hypoxemic respiratory failure It does appear that the patient has underlying heart failure with preserved ejection fraction. In addition, she is overall net +12.4 L for the admission. Plain film chest x-ray from this morning revealed blunting of the costophrenic angles bilaterally, suggestive of a component of edema. While I think the patient would benefit from a respiratory perspective from diuresis, will hold off for now given her vasopressor requirement. Continue to wean supplemental oxygen to maintain saturations at or above 90%. Continue the use of noninvasive positive pressure ventilation as needed. 3. Chronic oropharyngeal dysphasia/protein calorie malnutrition/severe debilitation/history of CVA/diabetes/anemia/depression Complicates care, management, recovery and prognosis. Continue TPN as ordered. Nursing staff to attempt to place feeding tube today. Continue work with physical therapy as tolerated. TIME: 40 minutes of critical care time, independent of procedures, was spent addressing the patient's septic shock, E. coli cystitis, MRSA bacteremia, acute on chronic respiratory failure, severe malnutrition, severe debilitation, review of all data and collaboration with the care team. ([id number]) Code Visit 9xxxx: 32007 Critical care first hour
[2018-09-27 07:31] LABS: Bedside Glucose 310 mg/dL (70-110)
--- NOTE | 2018-09-27 07:51 | RAD_ITS ---
STUDY: X-RAY CHEST REASON FOR EXAM: Female, 68 years old. Shortness of breath TECHNIQUE: AP COMPARISON: 09/23/2018 FINDINGS: Right central venous catheter is stable with tip in the lower SVC. Persistent hypoinflation with parenchymal opacities in both lung bases, stable. Continued blunting of the left and new blunting of the right costophrenic angles. Normal size heart. Normal mediastinum and catie. Normal visualized pulmonary arteries. Normal visualized aortic arch and descending thoracic aorta. No acute bony process. There is no demonstrated abnormality of the visualized soft tissue structures of the upper abdomen. RAD/Chest 1 View (Portable) IMPRESSION: 1. New slight blunting the right costophrenic angle suggesting small volume effusion. 2. Stable bibasilar atelectasis/infiltrates. 3. Stable trace left pleural effusion. Electronically Signed: Kaushik Scott MD at 10:38 EST , Service support ,
--- NOTE | 2018-09-27 08:47 | PCM.PROGNOTE ---
Patient Problems: Active and Suspected Problems Acute UTI (Acute) MRSA bacteremia (Acute) Subjective: Patient is a 68-year-old female admitted to the hospital for severe sepsis secondary to MRSA bacteremia and E. coli UTI. Just discharged from [facility] where she was treated for an upper GI bleed secondary to a gastric ulcer. She has a history of prior CVA and has [facility] a [facility] 2 years and progressively declining. Deferred to the intensive care unit on 09/26/2018 for persistent hypothermia despite vancomycin and Rocephin and also for hypotension. Dr. Sam is following. Dr. Duke is participating in care. Day #5 antibiotics-Rocephin and vancomycin Was started on Levophed last night for persistent hypotension and is on 5 mics. Core temp is now up to 97.5. Blood pressure since 5 AM has ranged from 97/52-90 9/64. She was started on BiPAP last night-has been having apneic episodes and I suspect she has DENISA Pulse ox is 99% on BiPAP with a 35% FiO2. Fluid balance for 09/26/2018 was positive thousand 740. Urine output on 09/26/2018 was 80 cc. Urine output overnight was 50 cc All lab was personally reviewed. Sodium is down to 149 and the chloride is 121. Serum bicarb is 20. BUN is 26 and the creatinine is 0.94 which is up from 0.6 at admission. AST and ALT are very mildly elevated in the bilirubin and phos are within normal limits. Phosphorus and magnesium are normal. Serum albumin is 1.5. Blood sugars are increasing. pt is on BIPAP and the air exchange is much better. making hand motions ....can not understand. When I explained about a PEG she nodded yes.....agreeable if necessary CXR today with very poor inspiratory effort and can not r/o BL pleural effusions looks as though there is PVC, ? infiltrates. Blood culture from 09/25 has no growth and the BC fro 09/26 has no growth so far Objective: PHYSICAL EXAM: GENERAL: more awake on the BIPAP - motioning that she wants it off ORAL: dry mucosa, no mucosal lesions NECK: No JVD, supple, trachea midline LUNGS: CTA anterior and lateral, symmetric chest expansion, markedly diminished, poor inspiratory effort, no wheezing, no rhonchi, no rales, continues to have HEART: RRR, Normal S1 and S2, no rub, no gallop Telemetry: Sinus rhythm with bundle branch block, rare PVC, no significant ventricular ectopy ABDOMEN: soft, NT, ND, hypoactive BS present, no guarding with palpation EXTREMITIES: edema, no cyanosis, no calf tenderness SKIN: bruises on the UE's - stable, intertrigo in the skin folds - getting Nystatin powder. NEUROLOGIC: no focal neurologic deficits PSYCH: apathetic, flat BP being taken in the left wrist.....R radial is 3/3 pulse. Not sure the wrist pressures are accurate. Off the warming blanket now and is maintaining temp of 97.5 core - Physical Exam Vital Signs Temp Pulse Resp BP Pulse Ox 97.5 F L 86 14 97/52 L 99 09/27/18 06:00 09/27/18 06:00 09/27/18 06:00 09/27/18 06:00 09/27/18 06:00 Oxygen Flow Rate (L/min) 2 Oxygen Delivery Method Bi-pap Weight: 250 lb 0.067 oz Body Mass Index (BMI) 34.2 Finger Stick Blood Glucose 95 Intake and Output for Last 24 Hours 09/25/18 09/26/18 09/27/18 23:59 23:59 23:59 Intake Total 3958 / 3958 4820 / 4820 1009.4 / 1009.4 Output Total 80 / 80 50 / 50 Balance 3958 / 3958 4740 / 4740 959.4 / 959.4 Microbiology Past 72 Hours 09/25/18 00:25 Blood Culture - Preliminary Blood Culture (Wb) - Central Line No growth in 48 hours. 09/23/18 05:04 Bacteria Detection (PCR) - Final Blood Culture (Wb) - Right Hand Blood Culture - Preliminary Staphylococcus aureus 09/23/18 01:25 Bacteria Detection (PCR) - Final Blood Culture (Wb) - Femoral Artery Staphylococcus aureus Blood Culture - Final Meth. resistant Staph. aureus 09/23/18 01:41 Urine Culture - Final Urine, Catheterized Presumptive E. coli Laboratory Tests Past 24 Hrs 09/26/18 09/26/18 09/27/18 19:20 19:20 05:35 Sodium 151 H 149 H Potassium 4.1 4.4 Chloride 123 H 121 H Carbon Dioxide 21.0 20.0 L Anion Gap 7 8 BUN 24 H 26 H Creatinine 0.89 0.94 Estim Creat Clear Calc 61.88 58.58 Est GFR (MDRD) Af Amer 82 76 Est GFR (MDRD) Non-Af 67 63 BUN/Creatinine Ratio 27.0 H 27.6 H Glucose 233 H 327 H Calcium 7.4 L 7.8 L Phosphorus 3.6 Magnesium 1.3 L 2.2 Total Bilirubin 0.30 AST 42 H ALT 57 H Alkaline Phosphatase 102 Total Creatine Kinase 77 Total Protein 4.1 L Albumin 1.5 L Globulin 2.6 Albumin/Globulin Ratio 0.6 L 09/27/18 05:35 Sodium Potassium Chloride Carbon Dioxide Anion Gap BUN Creatinine Estim Creat Clear Calc Est GFR (MDRD) Af Amer Est GFR (MDRD) Non-Af BUN/Creatinine Ratio Glucose Calcium Phosphorus 4.2 Magnesium Total Bilirubin AST ALT Alkaline Phosphatase Total Creatine Kinase Total Protein Albumin Globulin Albumin/Globulin Ratio POC Glucose 09/27/18 09/26/18 09/26/18 05:38 23:22 16:18 POC Glucose 310 H 246 H 190 H 09/26/18 12:35 POC Glucose 187 H Medical Necessity - Tobacco Use Smoking Status: Former smoker Tobacco Use: Non-smoker Assessment/Plan All Active Problems Acute UTI (Acute) GI bleed (Resolved) MRSA bacteremia (Acute) Day #5 Rocephin and vancomycin Impressions 1. septic shock with E.Coli in the urine and MRSA in the blood - started on Levophed on 09/26/18 to maintain the MAP at 65.....currently at 5 mcg 2. UTI secondary to E. coli 3. Recent upper GI bleed secondary to peptic ulcer disease/gastric ulcer-at [facility] - HGB is stable, it is mildly decreased due to hemodilution 4. Hypokalemia-resolved 5. Chronic hypoxic respiratory failure 6. Sleep disordered breathing-she was observed having apneic episodes and has never had a sleep study 7. Morbid obesity 8. Severe debility 9. CAD with history of PCI x2 10. Hypertension 11. Hyperlipidemia 12. History of CVA many years ago and went to [place] 2 years ago for PT but has never really participated 13. Chronic oral pharyngeal dysphagia 14. Diabetes mellitus type 2 15. Rheumatoid arthritis 16. Chronic lower extremity lymphedema 17. GERD 18. Anemia secondary to recent acute blood loss 19. Hypernatremia 20. Hypoalbuminemia 21. High Vanco trough 22. suspected severe depression - there is a very strong FH of depression and several of her children have been on antidepressants 23. severe malnutrition 24. persistent hypothermia and low BP ....TSH and cortisol normal. Delayed improvement from sepsis due to severe malnutrition and delayed response to antibiotics? 25. Cholelithiasis 26. ARF insert an A Line and compare the A line pressure to the pressure from the cuff on the left wrist to see if they correlate Check an ABG CT the chest, abd and pelvis to get a good look at the lungs.....is there effusions Adjust the insulin regimen consider a dose of albumin and a lasix chaser if there are effusions on the CT - she is + > 12 liters since admission...I suspect she also has ascites recheck lab in the AM try a duotube again......if unsuccessful consider a PEG Restart SSRI if the feeding tube is successful DC the TPN if she tolerates the TF at goal - start Jevity 1.5 - goal rate is 50 WBC has increased and now there is a left shift again - repeat all the cultures today and CT the abd and the pelvis Met with the family and updated them and discussed plans going forward. Code Visit Inpatient E&M: 58774 Subs Hosp L3
[2018-09-27 09:54] LABS: Absolute Lymphocyte Count 0.39 X10^3/ul (0.83-4.51); Absolute Neutrophil Count 12.4 X10^3/uL (2.0-7.7); Absolute Nucleated RBC Count 0.79 10^3/uL (0-5); Basophil# 0.03 X10^3/uL; Basophil% 0.2 % (0-1); Differential Indicated SCAN CRITERIA MET; Hematocrit 28.8 % (37-47); Hemoglobin 8.8 g/dl (12.0-15.0); Lymphocyte # 0.39 X10^3/ul (4.0); Lymphocyte % 2.8 % (19-41); Mean Corp Hgb Conc 30.6 g/gl (32-36); Mean Corpuscular Hgb 31.9 pg (27.0-32.0); Mean Corpuscular Volume 104.3 fL (81-99); Mean Platelet Vol. 11.3 fl (6.2-12.0); Monocyte% 8.5 % (0-10); NRBC Flagged by Analyzer 5.6 % (0-5); Neutrophil # 12.35 X10^3/uL (2.7-7.7); Neutrophil % 87.1 % (47-70); POSITIVE COUNT NO; POSITIVE DIFFERENTIAL YES; POSITIVE MORPHOLOGY YES; Platelet Count 118 K/mm3 (150-450); RBC Distribution Width CV 23.6 % (11.6-14.6); RBC Distribution Width SD 88.1 fl (35.1-43.9); Red Blood Count 2.76 M/mm3 (4.2-5.4); White Blood Count 14.2 K/mm3 (4.4-11.0)
--- NOTE | 2018-09-27 10:01 | RAD_ITS ---
STUDY: X-RAY - ABDOMEN/PELVIS REASON FOR EXAM: Female, 68 years old. NG tube placement TECHNIQUE: Single AP view of the abdomen / pelvis. COMPARISON: Yesterday FINDINGS: There is atelectasis in both lung bases. Enteric tube extends to the upper stomach. No dilated loops of small bowel demonstrated (incomplete visualization of the abdomen). There is no demonstrated free abdominal air. The visualized liver, spleen and kidneys are grossly normal in size and morphology. Normal soft tissue structures. Normal visualized osseous structures. RAD/Abdomen Single View (Portable) IMPRESSION: Enteric tube extends to the upper stomach. Electronically Signed: Kaushik Scott MD at 10:20 EST , Service support ,
[2018-09-27 10:10] LABS: Anisocytosis 1+; Burr Cells 1+; Hypochromasia 2+; Platelet Estimate ADEQUATE (ADEQ)
--- NOTE | 2018-09-27 10:29 | CT_ITS ---
STUDY: CT ABDOMEN AND PELVIS WITH CONTRAST REASON FOR EXAM: Female, 68 years old. Abdominal pain, pleural effusions RADIATION DOSAGE (If Supplied By Facility): CTDIvol = ( 27.63 ) mGy, DLP = ( 1703.52 ) mGycm TECHNIQUE: Transaxial images were obtained from the dome of the diaphragm to the symphysis pubis without oral contrast. 15 ml of Gastrografin contrast was administered. Sagittal and coronal images were reconstructed. Individualized dose optimization techniques were used for this CT. COMPARISON: None. FINDINGS: Base of the chest described on chest CT report, performed concurrently. Normal liver. There is moderate ascites cephalad to the liver with mild amount of ascites in the lower abdomen/pelvis. Normal gallbladder and extrahepatic biliary system. Normal spleen. Normal pancreas. There is a small, circumscribed, smooth, low attenuation (Hounsfield units 25) left adrenal mass, consistent with an adrenal adenoma. Normal right adrenal gland. No hydronephrosis of either kidney. Punctate calcification in the right kidney on image 59 may represent a small nonobstructing calculus. Similar calcification is in the inferior left kidney on coronal image 63. Rounded slightly hyperdense lesion of the left kidney measures 1.5 cm with Hounsfield units measuring 70. Enteric tube extends to the gastric lumen. Limited amount of injected oral contrast reaches the small bowel. No dilated loops of small bowel. Nondistended colon. There is non-visualization of the appendix. There is diffuse atherosclerotic calcification of the abdominal aorta, without a demonstrated aneurysm. Normal inferior vena cava. Normal retroperitoneum. Wallace catheter decompresses urinary bladder. Diffuse body wall edema identified. There are diffuse degenerative changes of the visualized lumbar spine. CT/Abdomen/Pel W ORAL Cont Only IMPRESSION: 1. Mild to moderate ascites (most conspicuous above the liver). 2. Limited passage of oral contrast into the small bowel. No dilated loops of small bowel. 3. Wallace catheter. 4. Atherosclerosis. 5. Body wall edema suggesting third spacing. 6. 1.5 cm hyperdense right renal lesion may represent a hyperdense proteinaceous cyst or solid neoplasm. 7. Indeterminate left adrenal lesion which does not meet imaging criteria for a lipid rich adenoma. However, in the absence of known primary malignancy or symptoms of functional adrenal mass, this likely represents a benign lesion such as a lipid poor adenoma. Electronically Signed: Kaushik Scott MD at 15:18 EST , Service support ,
--- NOTE | 2018-09-27 10:29 | CT_ITS ---
STUDY: CT CHEST WITHOUT CONTRAST REASON FOR EXAM: Female, 68 years old. Hypertension, pleural effusions RADIATION DOSAGE (If Supplied By Facility): CTDIvol = ( 26.46 ) mGy, DLP = ( 739.83 ) mGycm TECHNIQUE: Transaxial imaging was performed without the administration of intravenous contrast material. Multiplanar coronal and sagittal images were reformatted. Individualized dose optimization techniques were used for this CT. COMPARISON: 09/23/2018 FINDINGS: The lungs are less expanded as compared to the prior study with further elevation of the right hemidiaphragm as compared to the prior study. Compressive atelectasis involving the right middle lobe, lingula and bilateral lower lobes overall worse since the prior study. No cavitating process is seen. Small pleural effusions have developed since the prior study. A right subclavian central venous catheter extends to the lower SVC. No pneumothorax. Normal heart and pericardium. There are calcifications of the coronary arteries. Normal mediastinum. Normal hilar regions. Normal unenhanced pulmonary arteries. There is atherosclerotic calcification of the aortic arch with tortuosity and elongation of the aortic arch and descending thoracic aorta. There are multi-level degenerative changes of the thoracic spine. Upper abdomen as described on abdomen/pelvis CT report. CT/Chest without Contrast IMPRESSION: Worsening multilobar consolidations favoring atelectasis given relative hypoinflation although pneumonia is also a diagnostic consideration. Small bilateral pleural effusions, new since the prior study. No cavitating process. Electronically Signed: Kaushik Scott MD at 15:23 EST , Service support ,
[2018-09-27] MEDS: Nystatin Powder 15gm Bottle 1 APPLIC TOPICAL (12:10)
[2018-09-27 12:44] LABS: Vancomycin, Random Level 24.5 ug/mL (0.0-15.0)
[2018-09-27 13:01] LABS: Bedside Glucose 321 mg/dL (70-110)
--- NOTE | 2018-09-27 14:15 | NURSING ---
to CT, w/monitor and [employer]
[2018-09-27 15:36] LABS: Base Excess -12 mmol/L (-2 to +2); Bicarbonate 18.8 mmol/L (22-26); Blood Gas Specimen Type ALINE; O2 Delivery Device Nasal Can; PO2 89 mmHG (75-100); SITE OTHER; SO2 91 % (95-99); Time Given 1527; Total Carbon Dioxide 21 mmol/L; pCO2 68.1 mmHg (35-45); pH 7.05 (7.35-7.45)
[2018-09-27] MEDS: Sodium Bicarbonate 8.4% 50 ML Syringe 50 MEQ IV (16:48)
[2018-09-27] MEDS: Albumin Human 25% (100 mL) 25 GM/100 ML BAG IV (17:02)
--- NOTE | 2018-09-27 17:20 | NURSING ---
to [facility] per ambulance.
[2018-09-27] MEDS: Furosemide 40 MG/4 ML Vial IV (17:25)
--- NOTE | 2018-09-27 17:59 | PCM.RX.CS ---
Consult Pharmacy has been consulted to manage selected antiobiotic: Vancomycin Type of Consult: Follow-up Suspected Infection: Bacteremia Labs: Sodium 149 mmol/L (136-145) H 09/27/18 05:35 Potassium 4.4 mmol/L (3.5-5.1) 09/27/18 05:35 Chloride 121 mmol/L (98-107) H 09/27/18 05:35 Carbon Dioxide 20.0 mmol/L (21.0-32.0) L 09/27/18 05:35 Anion Gap 8 (5-15) 09/27/18 05:35 BUN 26 mg/dL (7-18) H 09/27/18 05:35 Creatinine 0.94 mg/dL (0.55-1.02) 09/27/18 05:35 Est GFR (MDRD) Af Amer 76 mL/min (>60) 09/27/18 05:35 Est GFR (MDRD) Non-Af 63 mL/min (>60) 09/27/18 05:35 BUN/Creatinine Ratio 27.6 RATIO (10-20) H 09/27/18 05:35 Glucose 327 mg/dL (74-106) H 09/27/18 05:35 Vancomycin Trough 27.9 ug/mL (5.0-15.0) H 09/25/18 10:55 Random Vancomycin 24.5 ug/mL (0.0-15.0) H 09/27/18 12:00 Microbiology: Microbiology 09/25/18 00:25 Blood Culture (Wb) - Central Line Blood Culture - Preliminary No growth in 48 hours. 09/23/18 05:04 Blood Culture (Wb) - Right Hand Bacteria Detection (PCR) - Final 09/23/18 05:04 Blood Culture (Wb) - Right Hand Blood Culture - Preliminary Staphylococcus aureus 09/23/18 01:25 Blood Culture (Wb) - Femoral Artery Bacteria Detection (PCR) - Final Staphylococcus aureus 09/23/18 01:25 Blood Culture (Wb) - Femoral Artery Blood Culture - Final Meth. resistant Staph. aureus 09/23/18 01:41 Urine, Catheterized Urine Culture - Final Presumptive E. coli Goal Trough: 15-20 mcg/mL Pharmacy Plan for Drug Dosing: Random level > 20 mcg/mL 09/26 and 09/27. Recheck tomorrow. Pharmacy Service will continue to monitor and adjust dosing as required. Follow-Up Labs: Trough Vancomycin - 09/28 @ 0600
--- NOTE | 2018-09-27 18:00 | NURSING ---
hospice medical device sales representative Joanne present in pt room w/pt and her 3 children, including Ileana MONTERROSO
[2018-09-27 18:21] LABS: Bedside Glucose 307 mg/dL (70-110)
--- NOTE | 2018-09-27 18:38 | PCM.DC.SUM ---
Discharge Date and Diagnosis - Problem List Patient Problems: Active and Suspected Problems Acute UTI (Acute) MRSA bacteremia (Acute) Date of Admission: 09/23/18 Date of Discharge: 09/27/18 - Primary Discharge Diagnosis Active and Suspected Problems Septic shock Acute UTI (Acute) -E. coli MRSA bacteremia (Acute) Acute combined respiratory failure Hypokalemia Hypernatremia malnutrition Hypothermia Acute renal failure Bilateral pleural effusions Anasarca Renal mass Adrenal mass - Secondary Discharge Diagnosis Chronic Problems Normocytic anemia (Chronic) secondary to recent acute blood loss related to upper GI bleed secondary to gastric ulcer CAD (coronary artery disease) (Chronic) CVA (cerebral vascular accident) (Chronic) and remote HTN (hypertension) (Chronic) HLD (hyperlipidemia) (Chronic) Diabetes mellitus, type II (Chronic) Dysphagia as late effect of cerebrovascular accident (CVA) (Chronic) Obesity (BMI 30-39.9) (Chronic) GERD (gastroesophageal reflux disease) (Chronic) Anxiety and depression (Chronic) Rheumatoid arthritis Sleep disordered breathing-suspected DENISA with apneic episodes Severe debility Hospital Course and Treatment Imaging Results: 09/27/18 10:01 KUB [Abdomen Single View (Portable)] [RAD] Urgent 09/27/18 10:29 Abdomen/Pel W ORAL Cont Only [CT] Routine CT Chest [Chest without Contrast] [CT] Routine 09/28/18 05:55 KUB [Abdomen Single View] [RAD] AM (NON MEDS) Clinical Impression(s) from Imaging Studies Chest X-Ray 09/23/18 00:25 IMPRESSION: Bilateral lower lobe subsegmental atelectasis, effusion and/or pneumonia. Consider correlation with CT chest or CT abdomen and pelvis, the latter of which also includes the lung bases. Electronically Signed: Say Smith MD at 0:56 EST , Service support , Chest CT 09/23/18 01:20 IMPRESSION: Bilateral lower lobe and to a lesser extent right middle lobe subsegmental atelectasis versus pneumonia. Small right pleural effusion. Coronary artery calcifications. Cholelithiasis/gallbladder sludge. Electronically Signed: Say Smith MD at 3:04 EST , Service support , Chest X-Ray 09/23/18 14:03 IMPRESSION: A right-sided segment catheter has been placed. The tip is at the junction of the superior vena cava and right atrium. The remainder the examination is unchanged. Electronically Signed: Karlos Owusu MD at 14:35 EST , Service support , Abdomen X-Ray 09/26/18 01:45 IMPRESSION: Normal x-ray examination of the abdomen and pelvis. There is NO evidence of bowel obstruction. Electronically Signed: Scar Burton MD at 3:06 EST , Service support , Brain CT 09/26/18 09:32 IMPRESSION: 1. No acute intracranial hemorrhage or mass effect. 2. Age-appropriate involutional changes. Electronically Signed: Kaushik Scott MD at 10:54 EST , Service support , KUB X-Ray 09/26/18 11:46 IMPRESSION: NG tube with tip in side port at the GE junction. Recommend advancement. Electronically Signed: Joe Reddy DO at 14:44 EST Tel , Service support , KUB X-Ray 09/26/18 13:02 IMPRESSION: As above Electronically Signed: Joe Reddy DO at 14:45 EST Tel , Service support , Chest X-Ray 09/27/18 07:51 IMPRESSION: 1. New slight blunting the right costophrenic angle suggesting small volume effusion. 2. Stable bibasilar atelectasis/infiltrates. 3. Stable trace left pleural effusion. Electronically Signed: Kaushik Scott MD at 10:38 EST , Service support , KUB X-Ray 09/27/18 10:01 IMPRESSION: Enteric tube extends to the upper stomach. Electronically Signed: Kaushik Scott MD at 10:20 EST , Service support , Abdomen CT 09/27/18 10:29 IMPRESSION: 1. Mild to moderate ascites (most conspicuous above the liver). 2. Limited passage of oral contrast into the small bowel. No dilated loops of small bowel. 3. Wallace catheter. 4. Atherosclerosis. 5. Body wall edema suggesting third spacing. 6. 1.5 cm hyperdense right renal lesion may represent a hyperdense proteinaceous cyst or solid neoplasm. 7. Indeterminate left adrenal lesion which does not meet imaging criteria for a lipid rich adenoma. However, in the absence of known primary malignancy or symptoms of functional adrenal mass, this likely represents a benign lesion such as a lipid poor adenoma. Electronically Signed: Kaushik Scott MD at 15:18 EST , Service support , Chest CT 09/27/18 10:29 IMPRESSION: Worsening multilobar consolidations favoring atelectasis given relative hypoinflation although pneumonia is also a diagnostic consideration. Small bilateral pleural effusions, new since the prior study. No cavitating process. Electronically Signed: Kaushik Scott MD at 15:23 EST , Service support , Clinical Impression(s) from Imaging Studies Chest X-Ray 09/23/18 00:25 IMPRESSION: Bilateral lower lobe subsegmental atelectasis, effusion and/or pneumonia. Consider correlation with CT chest or CT abdomen and pelvis, the latter of which also includes the lung bases. Electronically Signed: Say Smith MD at 0:56 EST , Service support , Chest CT 09/23/18 01:20 IMPRESSION: Bilateral lower lobe and to a lesser extent right middle lobe subsegmental atelectasis versus pneumonia. Small right pleural effusion. Coronary artery calcifications. Cholelithiasis/gallbladder sludge. Electronically Signed: Say Smith MD at 3:04 EST , Service support , Chest X-Ray 09/23/18 14:03 IMPRESSION: A right-sided segment catheter has been placed. The tip is at the junction of the superior vena cava and right atrium. The remainder the examination is unchanged. Electronically Signed: Karlos Owusu MD at 14:35 EST , Service support , Abdomen X-Ray 09/26/18 01:45 IMPRESSION: Normal x-ray examination of the abdomen and pelvis. There is NO evidence of bowel obstruction. Electronically Signed: Scar Burton MD at 3:06 EST , Service support , Brain CT 09/26/18 09:32 IMPRESSION: 1. No acute intracranial hemorrhage or mass effect. 2. Age-appropriate involutional changes. Electronically Signed: Kaushik Scott MD at 10:54 EST , Service support , KUB X-Ray 09/26/18 11:46 IMPRESSION: NG tube with tip in side port at the GE junction. Recommend advancement. Electronically Signed: Joe Reddy DO at 14:44 EST Tel , Service support , KUB X-Ray 09/26/18 13:02 IMPRESSION: As above Electronically Signed: Joe Reddy DO at 14:45 EST Tel , Service support , Chest X-Ray 09/27/18 07:51 IMPRESSION: 1. New slight blunting the right costophrenic angle suggesting small volume effusion. 2. Stable bibasilar atelectasis/infiltrates. 3. Stable trace left pleural effusion. Electronically Signed: Kaushik Scott MD at 10:38 EST , Service support , KUB X-Ray 09/27/18 10:01 IMPRESSION: Enteric tube extends to the upper stomach. Electronically Signed: Kaushik Scott MD at 10:20 EST , Service support , Abdomen CT 09/27/18 10:29 IMPRESSION: 1. Mild to moderate ascites (most conspicuous above the liver). 2. Limited passage of oral contrast into the small bowel. No dilated loops of small bowel. 3. Wallace catheter. 4. Atherosclerosis. 5. Body wall edema suggesting third spacing. 6. 1.5 cm hyperdense right renal lesion may represent a hyperdense proteinaceous cyst or solid neoplasm. 7. Indeterminate left adrenal lesion which does not meet imaging criteria for a lipid rich adenoma. However, in the absence of known primary malignancy or symptoms of functional adrenal mass, this likely represents a benign lesion such as a lipid poor adenoma. Electronically Signed: Kaushik Scott MD at 15:18 EST , Service support , Chest CT 09/27/18 10:29 IMPRESSION: Worsening multilobar consolidations favoring atelectasis given relative hypoinflation although pneumonia is also a diagnostic consideration. Small bilateral pleural effusions, new since the prior study. No cavitating process. Electronically Signed: Kaushik Scott MD at 15:23 EST , Service support , Microbiology 09/25/18 00:25 Blood Culture (Wb) - Central Line Blood Culture - Preliminary No growth in 48 hours. 09/23/18 05:04 Blood Culture (Wb) - Right Hand Bacteria Detection (PCR) - Final 09/23/18 05:04 Blood Culture (Wb) - Right Hand Blood Culture - Preliminary Staphylococcus aureus 09/23/18 01:25 Blood Culture (Wb) - Femoral Artery Bacteria Detection (PCR) - Final Staphylococcus aureus 09/23/18 01:25 Blood Culture (Wb) - Femoral Artery Blood Culture - Final Meth. resistant Staph. aureus 09/23/18 01:41 Urine, Catheterized Urine Culture - Final Presumptive E. coli Laboratory Results - last 24 hr 09/26/18 09/26/18 09/26/18 19:20 19:20 23:22 WBC RBC Hgb Hct MCV MCH MCHC RDW RDW Differential Plt Count MPV Immature Gran % (Auto) Neut % (Auto) Lymph % (Auto) Randall % (Auto) Eos % (Auto) Baso % (Auto) Absolute Neuts (auto) Absolute Lymphs (auto) Total Counted Nucleated RBC % Diff Path Review Platelet Estimate Hypochromasia Anisocytosis Maria M Cells Absolute Retic Specimen Type Sample Site pH Bicarbonate Actual POC Total CO2 Base Excess O2 Saturation ABG pCO2 ABG pO2 O2 Delivery Device Liter Flow Blood Gas Notified Whom Blood Gas Notified Time Sodium 151 H Potassium 4.1 Chloride 123 H Carbon Dioxide 21.0 Anion Gap 7 BUN 24 H Creatinine 0.89 Estim Creat Clear Calc 61.88 Est GFR (MDRD) Af Amer 82 Est GFR (MDRD) Non-Af 67 BUN/Creatinine Ratio 27.0 H Glucose 233 H Calcium 7.4 L Phosphorus 3.6 Magnesium 1.3 L Total Bilirubin AST ALT Alkaline Phosphatase Total Creatine Kinase 77 Total Protein Albumin Globulin Albumin/Globulin Ratio Random Vancomycin POC Glucose 246 H 09/27/18 09/27/18 09/27/18 05:35 05:35 05:35 WBC 14.2 H RBC 2.76 L Hgb 8.8 L Hct 28.8 L MCV 104.3 H MCH 31.9 MCHC 30.6 L RDW 23.6 H RDW Differential 88.1 H Plt Count 118 L MPV 11.3 Immature Gran % (Auto) 1.400 H Neut % (Auto) 87.1 H Lymph % (Auto) 2.8 L Randall % (Auto) 8.5 Eos % (Auto) 0.0 Baso % (Auto) 0.2 Absolute Neuts (auto) 12.4 H Absolute Lymphs (auto) 0.39 L Total Counted Not Reportable Nucleated RBC % 5.6 H Diff Path Review May foll Platelet Estimate ADEQUATE Hypochromasia 2+ Anisocytosis 1+ Armbrust Cells 1+ Absolute Retic 0.79 Specimen Type Sample Site pH Bicarbonate Actual POC Total CO2 Base Excess O2 Saturation ABG pCO2 ABG pO2 O2 Delivery Device Liter Flow Blood Gas Notified Whom Blood Gas Notified Time Sodium 149 H Potassium 4.4 Chloride 121 H Carbon Dioxide 20.0 L Anion Gap 8 BUN 26 H Creatinine 0.94 Estim Creat Clear Calc 58.58 Est GFR (MDRD) Af Amer 76 Est GFR (MDRD) Non-Af 63 BUN/Creatinine Ratio 27.6 H Glucose 327 H Calcium 7.8 L Phosphorus 4.2 Magnesium 2.2 Total Bilirubin 0.30 AST 42 H ALT 57 H Alkaline Phosphatase 102 Total Creatine Kinase Total Protein 4.1 L Albumin 1.5 L Globulin 2.6 Albumin/Globulin Ratio 0.6 L Random Vancomycin POC Glucose 09/27/18 09/27/18 09/27/18 05:38 12:00 12:39 WBC RBC Hgb Hct MCV MCH MCHC RDW RDW Differential Plt Count MPV Immature Gran % (Auto) Neut % (Auto) Lymph % (Auto) Randall % (Auto) Eos % (Auto) Baso % (Auto) Absolute Neuts (auto) Absolute Lymphs (auto) Total Counted Nucleated RBC % Diff Path Review Platelet Estimate Hypochromasia Anisocytosis Maria M Cells Absolute Retic Specimen Type Sample Site pH Bicarbonate Actual POC Total CO2 Base Excess O2 Saturation ABG pCO2 ABG pO2 O2 Delivery Device Liter Flow Blood Gas Notified Whom Blood Gas Notified Time Sodium Potassium Chloride Carbon Dioxide Anion Gap BUN Creatinine Estim Creat Clear Calc Est GFR (MDRD) Af Amer Est GFR (MDRD) Non-Af BUN/Creatinine Ratio Glucose Calcium Phosphorus Magnesium Total Bilirubin AST ALT Alkaline Phosphatase Total Creatine Kinase Total Protein Albumin Globulin Albumin/Globulin Ratio Random Vancomycin 24.5 H POC Glucose 310 H 321 H 09/27/18 09/27/18 15:28 18:08 WBC RBC Hgb Hct MCV MCH MCHC RDW RDW Differential Plt Count MPV Immature Gran % (Auto) Neut % (Auto) Lymph % (Auto) Randall % (Auto) Eos % (Auto) Baso % (Auto) Absolute Neuts (auto) Absolute Lymphs (auto) Total Counted Nucleated RBC % Diff Path Review Platelet Estimate Hypochromasia Anisocytosis Armbrust Cells Absolute Retic Specimen Type MARCK Sample Site OTHER pH 7.05 L* Bicarbonate Actual 18.8 L POC Total CO2 21 Base Excess -12 L O2 Saturation 91 L ABG pCO2 68.1 H* ABG pO2 89 O2 Delivery Device Nasal Can Liter Flow 3.0 Blood Gas Notified Whom HOSP Blood Gas Notified Time 1527 Sodium Potassium Chloride Carbon Dioxide Anion Gap BUN Creatinine Estim Creat Clear Calc Est GFR (MDRD) Af Amer Est GFR (MDRD) Non-Af BUN/Creatinine Ratio Glucose Calcium Phosphorus Magnesium Total Bilirubin AST ALT Alkaline Phosphatase Total Creatine Kinase Total Protein Albumin Globulin Albumin/Globulin Ratio Random Vancomycin POC Glucose 307 H Consultations 09/23/18 19:52 Consult: Onc/Wound/engineering agent Routine Comment: Reason for Consult:: Pressure injury to coccyx, excoriation to abd folds Operations: None Procedures: 2-D Echocardiogram - Interpretation Summary Normal LV size. Left ventricular systolic function is normal. The estimated ejection fraction is 60 %. Stage 1 diastolic dysfunction. Mild focal aortic valve calcification. Summary of Care Provided: The Patient is a 68-year-old female admitted to the hospital for severe sepsis secondary to MRSA bacteremia and E. coli UTI. She had just been discharged from [facility] where she was treated for an upper GI bleed secondary to a gastric ulcer. Past medical history is significant for rheumatoid arthritis, chronic lower extremity edema, chronic hypoxic respiratory failure, remote CVA with left hemiparesis, chronic dysphagia, coronary artery disease with history of PCI x2, hypertension, hyperlipidemia, GERD, diabetes mellitus type 2, morbid obesity and fatty infiltration of the liver. [place] lived [place] for the past 2 years and was placed initially for PT/OT/ST. Since placement at the [place] she has not been out of bed, even to the chair. She has not been eating. She sleeps most of the time. Over the past 6 months she has declined significantly. She was hypothermic at admission and this persisted. She was treated with Vanco and Rocephin and she was seen by ID. She was noted to have apneic episodes and we suspected she has sleep apnea. On 09/26 she declined further and was barely responsive. She was hypothermic and hypotensive. She was transferred to the ICU and diagnosed with Septic chock. CTB was unremarkable. She was placed on BIPAP. A CT of the chest, abd and pelvis showed worsening multilobar consolidations with hypoinflation. There were small bilateral pleural effusions and no cavitating processes. The abdomen CT showed mild to moderate ascites, body wall edema, a 1.5 cm right renal lesion possibly due to a proteinaceous cyst versus a solid neoplasm and an indeterminate left adrenal lesion which did not meet imaging criteria for a lipid rich adenoma. She continued to decline throughout the day on 09/27/2018 and an ABG drawn at 330 showed a pH of 7.05, PCO2 of 68 and a PO2 of 89 on nasal cannula at 3 L. I called her daughter Ileana who is the medical power of parts counter representative and she requested that we order a hospice consult and change the CODE STATUS to DNR CC arrest. After the family met with hospice the family wanted DNR CC and she was transferred to the hospice facility. This note was generated with [employer] dictation software. It may contain incorrect words, spelling, and punctuation that were not noted in checking the note before signing. Patient Problems: Active and Suspected Problems Acute UTI (Acute) MRSA bacteremia (Acute) - Physical Exam Vital Signs Temp Pulse Resp BP Pulse Ox 97.3 F L 66 22 H 105/50 L 99 09/27/18 12:00 09/27/18 15:40 09/27/18 15:40 09/27/18 14:00 09/27/18 15:40 Oxygen Flow Rate (L/min) 3 Oxygen Delivery Method Nasal Cannula Weight: 250 lb 0.067 oz Body Mass Index (BMI) 34.2 Finger Stick Blood Glucose 95 Intake and Output for Last 24 Hours 09/25/18 09/26/18 09/27/18 23:59 23:59 23:59 Intake Total 3958 / 3958 4820 / 4820 2795.4 / 2795.4 Output Total 80 / 80 120 / 120 Balance 3958 / 3958 4740 / 4740 2675.4 / 2675.4 Microbiology Past 72 Hours 09/25/18 00:25 Blood Culture - Preliminary Blood Culture (Wb) - Central Line No growth in 48 hours. 09/23/18 05:04 Bacteria Detection (PCR) - Final Blood Culture (Wb) - Right Hand Blood Culture - Preliminary Staphylococcus aureus 09/23/18 01:25 Bacteria Detection (PCR) - Final Blood Culture (Wb) - Femoral Artery Staphylococcus aureus Blood Culture - Final Meth. resistant Staph. aureus 09/23/18 01:41 Urine Culture - Final Urine, Catheterized Presumptive E. coli Laboratory Tests Past 24 Hrs 09/26/18 09/26/18 09/27/18 19:20 19:20 05:35 WBC 14.2 H RBC 2.76 L Hgb 8.8 L Hct 28.8 L MCV 104.3 H MCH 31.9 MCHC 30.6 L RDW 23.6 H RDW Differential 88.1 H Plt Count 118 L MPV 11.3 Immature Gran % (Auto) 1.400 H Neut % (Auto) 87.1 H Lymph % (Auto) 2.8 L Randall % (Auto) 8.5 Eos % (Auto) 0.0 Baso % (Auto) 0.2 Absolute Neuts (auto) 12.4 H Absolute Lymphs (auto) 0.39 L Total Counted Not Reportable Nucleated RBC % 5.6 H Diff Path Review May foll Platelet Estimate ADEQUATE Hypochromasia 2+ Anisocytosis 1+ Maria M Cells 1+ Absolute Retic 0.79 Specimen Type Sample Site pH Bicarbonate Actual POC Total CO2 Base Excess O2 Saturation ABG pCO2 ABG pO2 O2 Delivery Device Liter Flow Blood Gas Notified Whom Blood Gas Notified Time Sodium 151 H Potassium 4.1 Chloride 123 H Carbon Dioxide 21.0 Anion Gap 7 BUN 24 H Creatinine 0.89 Estim Creat Clear Calc 61.88 Est GFR (MDRD) Af Amer 82 Est GFR (MDRD) Non-Af 67 BUN/Creatinine Ratio 27.0 H Glucose 233 H Calcium 7.4 L Phosphorus 3.6 Magnesium 1.3 L Total Bilirubin AST ALT Alkaline Phosphatase Total Creatine Kinase 77 Total Protein Albumin Globulin Albumin/Globulin Ratio Random Vancomycin 09/27/18 09/27/18 09/27/18 05:35 05:35 12:00 WBC RBC Hgb Hct MCV MCH MCHC RDW RDW Differential Plt Count MPV Immature Gran % (Auto) Neut % (Auto) Lymph % (Auto) Randall % (Auto) Eos % (Auto) Baso % (Auto) Absolute Neuts (auto) Absolute Lymphs (auto) Total Counted Nucleated RBC % Diff Path Review Platelet Estimate Hypochromasia Anisocytosis Armbrust Cells Absolute Retic Specimen Type Sample Site pH Bicarbonate Actual POC Total CO2 Base Excess O2 Saturation ABG pCO2 ABG pO2 O2 Delivery Device Liter Flow Blood Gas Notified Whom Blood Gas Notified Time Sodium 149 H Potassium 4.4 Chloride 121 H Carbon Dioxide 20.0 L Anion Gap 8 BUN 26 H Creatinine 0.94 Estim Creat Clear Calc 58.58 Est GFR (MDRD) Af Amer 76 Est GFR (MDRD) Non-Af 63 BUN/Creatinine Ratio 27.6 H Glucose 327 H Calcium 7.8 L Phosphorus 4.2 Magnesium 2.2 Total Bilirubin 0.30 AST 42 H ALT 57 H Alkaline Phosphatase 102 Total Creatine Kinase Total Protein 4.1 L Albumin 1.5 L Globulin 2.6 Albumin/Globulin Ratio 0.6 L Random Vancomycin 24.5 H 09/27/18 15:28 WBC RBC Hgb Hct MCV MCH MCHC RDW RDW Differential Plt Count MPV Immature Gran % (Auto) Neut % (Auto) Lymph % (Auto) Randall % (Auto) Eos % (Auto) Baso % (Auto) Absolute Neuts (auto) Absolute Lymphs (auto) Total Counted Nucleated RBC % Diff Path Review Platelet Estimate Hypochromasia Anisocytosis Maria M Cells Absolute Retic Specimen Type MARCK Sample Site OTHER pH 7.05 L* Bicarbonate Actual 18.8 L POC Total CO2 21 Base Excess -12 L O2 Saturation 91 L ABG pCO2 68.1 H* ABG pO2 89 O2 Delivery Device Nasal Can Liter Flow 3.0 Blood Gas Notified Whom [facility] Blood Gas Notified Time 1527 Sodium Potassium Chloride Carbon Dioxide Anion Gap BUN Creatinine Estim Creat Clear Calc Est GFR (MDRD) Af Amer Est GFR (MDRD) Non-Af BUN/Creatinine Ratio Glucose Calcium Phosphorus Magnesium Total Bilirubin AST ALT Alkaline Phosphatase Total Creatine Kinase Total Protein Albumin Globulin Albumin/Globulin Ratio Random Vancomycin POC Glucose 09/27/18 09/27/18 09/27/18 18:08 12:39 05:38 POC Glucose 307 H 321 H 310 H 09/26/18 23:22 POC Glucose 246 H Home Medications: Medications to take at Discharge Aspirin E.C. [Ecotrin] 81 mg PO DAILY@0800 03/18/16 Atenolol [Tenormin] 25 mg PO DAILY 03/18/16 Atorvastatin Calcium [Lipitor] 40 mg PO QHS 03/18/16 Folic Acid 1 mg PO DAILY@0800 03/18/16 Hydroxychloroquine [Plaquenil] 200 mg PO BIDCM 03/18/16 [place]-3 Fatty Acids/Fish Oil [[place] 3 Fish Oil Softgel] 1 cap PO DAILY 03/18/16 Docusate Sodium [Colace] 100 mg PO PRN PRN 09/15/18 Potassium Chloride [Klor-Con M20] 20 meq PO DAILY 09/15/18 traZODone [Desyrel] 25 mg PO QHS 09/15/18 Ascorbic Acid [Vitamin C] 500 mg PO DAILY@0800 09/23/18 Methotrexate Sodium [Methotrexate] 2.5 mg PO FR 09/23/18 Multivit,Tx with Iron,Minerals [Thera-M] 1 each PO DAILY 09/23/18 Pantoprazole Sodium [Protonix] 40 mg PO BID 09/23/18 Polyethylene Glycol 3350 [Miralax] 34 gm PO DAILY PRN 09/23/18 Zolpidem Tartrate [Ambien (Generic)] 5 mg PO QHS PRN PRN 09/23/18 Primary Care Physician: Shakira Brewer MD [Primary Care Provider] - Disposition: Hospice Medical Facility Minutes spent on discharge:: 40 Patient Condition:: Critical Medical Necessity - Tobacco Use Smoking Status: Former smoker Tobacco Use: Non-smoker Meaningful Use Info Meaningful Use Diagnoses (Choose all that apply): None applicable
--- NOTE | 2018-09-27 18:42 | DS.PCM_ITS ---
Discharge Date and Diagnosis - Problem List Patient Problems: Active and Suspected Problems Acute UTI (Acute) MRSA bacteremia (Acute) Date of Admission: 09/23/18 Date of Discharge: 09/27/18 - Primary Discharge Diagnosis Active and Suspected Problems Septic shock Acute UTI (Acute) -E. coli MRSA bacteremia (Acute) Acute combined respiratory failure Hypokalemia Hypernatremia malnutrition Hypothermia Acute renal failure Bilateral pleural effusions Anasarca Renal mass Adrenal mass - Secondary Discharge Diagnosis Chronic Problems Normocytic anemia (Chronic) secondary to recent acute blood loss related to upper GI bleed secondary to gastric ulcer CAD (coronary artery disease) (Chronic) CVA (cerebral vascular accident) (Chronic) and remote HTN (hypertension) (Chronic) HLD (hyperlipidemia) (Chronic) Diabetes mellitus, type II (Chronic) Dysphagia as late effect of cerebrovascular accident (CVA) (Chronic) Obesity (BMI 30-39.9) (Chronic) GERD (gastroesophageal reflux disease) (Chronic) Anxiety and depression (Chronic) Rheumatoid arthritis Sleep disordered breathing-suspected DENISA with apneic episodes Severe debility Hospital Course and Treatment Imaging Results: 09/27/18 10:01 KUB [Abdomen Single View (Portable)] [RAD] Urgent 09/27/18 10:29 Abdomen/Pel W ORAL Cont Only [CT] Routine CT Chest [Chest without Contrast] [CT] Routine 09/28/18 05:55 KUB [Abdomen Single View] [RAD] AM (NON MEDS) Clinical Impression(s) from Imaging Studies Chest X-Ray 09/23/18 00:25 IMPRESSION: Bilateral lower lobe subsegmental atelectasis, effusion and/or pneumonia. Consider correlation with CT chest or CT abdomen and pelvis, the latter of which also includes the lung bases. Electronically Signed: Say Smith MD at 0:56 EST , Service support , Chest CT 09/23/18 01:20 IMPRESSION: Bilateral lower lobe and to a lesser extent right middle lobe subsegmental atelectasis versus pneumonia. Small right pleural effusion. Coronary artery calcifications. Cholelithiasis/gallbladder sludge. Electronically Signed: Say Smith MD at 3:04 EST , Service support , Chest X-Ray 09/23/18 14:03 IMPRESSION: A right-sided segment catheter has been placed. The tip is at the junction of the superior vena cava and right atrium. The remainder the examination is unchanged. Electronically Signed: Karlos Owusu MD at 14:35 EST , Service support , Abdomen X-Ray 09/26/18 01:45 IMPRESSION: Normal x-ray examination of the abdomen and pelvis. There is NO evidence of bowel obstruction. Electronically Signed: Scar Burton MD at 3:06 EST , Service support , Brain CT 09/26/18 09:32 IMPRESSION: 1. No acute intracranial hemorrhage or mass effect. 2. Age-appropriate involutional changes. Electronically Signed: Kaushik Scott MD at 10:54 EST , Service support , KUB X-Ray 09/26/18 11:46 IMPRESSION: NG tube with tip in side port at the GE junction. Recommend advancement. Electronically Signed: Joe Reddy DO at 14:44 EST Tel , Service support , KUB X-Ray 09/26/18 13:02 IMPRESSION: As above Electronically Signed: Joe Reddy DO at 14:45 EST Tel , Service support , Chest X-Ray 09/27/18 07:51 IMPRESSION: 1. New slight blunting the right costophrenic angle suggesting small volume effusion. 2. Stable bibasilar atelectasis/infiltrates. 3. Stable trace left pleural effusion. Electronically Signed: Kaushik Scott MD at 10:38 EST , Service support , KUB X-Ray 09/27/18 10:01 IMPRESSION: Enteric tube extends to the upper stomach. Electronically Signed: Kaushik Scott MD at 10:20 EST , Service support , Abdomen CT 09/27/18 10:29 IMPRESSION: 1. Mild to moderate ascites (most conspicuous above the liver). 2. Limited passage of oral contrast into the small bowel. No dilated loops of small bowel. 3. Wallace catheter. 4. Atherosclerosis. 5. Body wall edema suggesting third spacing. 6. 1.5 cm hyperdense right renal lesion may represent a hyperdense proteinaceous cyst or solid neoplasm. 7. Indeterminate left adrenal lesion which does not meet imaging criteria for a lipid rich adenoma. However, in the absence of known primary malignancy or symptoms of functional adrenal mass, this likely represents a benign lesion such as a lipid poor adenoma. Electronically Signed: Kaushik Scott MD at 15:18 EST , Service support , Chest CT 09/27/18 10:29 IMPRESSION: Worsening multilobar consolidations favoring atelectasis given relative hypoinflation although pneumonia is also a diagnostic consideration. Small bilateral pleural effusions, new since the prior study. No cavitating process. Electronically Signed: Kaushik Scott MD at 15:23 EST , Service support , Clinical Impression(s) from Imaging Studies Chest X-Ray 09/23/18 00:25 IMPRESSION: Bilateral lower lobe subsegmental atelectasis, effusion and/or pneumonia. Consider correlation with CT chest or CT abdomen and pelvis, the latter of which also includes the lung bases. Electronically Signed: Say Smith MD at 0:56 EST , Service support , Chest CT 09/23/18 01:20 IMPRESSION: Bilateral lower lobe and to a lesser extent right middle lobe subsegmental atelectasis versus pneumonia. Small right pleural effusion. Coronary artery calcifications. Cholelithiasis/gallbladder sludge. Electronically Signed: Say Smith MD at 3:04 EST , Service support , Chest X-Ray 09/23/18 14:03 IMPRESSION: A right-sided segment catheter has been placed. The tip is at the junction of the superior vena cava and right atrium. The remainder the examination is unchanged. Electronically Signed: Karlos Owusu MD at 14:35 EST , Service support , Abdomen X-Ray 09/26/18 01:45 IMPRESSION: Normal x-ray examination of the abdomen and pelvis. There is NO evidence of bowel obstruction. Electronically Signed: Scar Burton MD at 3:06 EST , Service support , Brain CT 09/26/18 09:32 IMPRESSION: 1. No acute intracranial hemorrhage or mass effect. 2. Age-appropriate involutional changes. Electronically Signed: Kaushik Scott MD at 10:54 EST , Service support , KUB X-Ray 09/26/18 11:46 IMPRESSION: NG tube with tip in side port at the GE junction. Recommend advancement. Electronically Signed: Joe Reddy DO at 14:44 EST Tel , Service support , KUB X-Ray 09/26/18 13:02 IMPRESSION: As above Electronically Signed: Joe Reddy DO at 14:45 EST Tel , Service support , Chest X-Ray 09/27/18 07:51 IMPRESSION: 1. New slight blunting the right costophrenic angle suggesting small volume effusion. 2. Stable bibasilar atelectasis/infiltrates. 3. Stable trace left pleural effusion. Electronically Signed: Kaushik Scott MD at 10:38 EST , Service support , KUB X-Ray 09/27/18 10:01 IMPRESSION: Enteric tube extends to the upper stomach. Electronically Signed: Kasuhik Scott MD at 10:20 EST , Service support , Abdomen CT 09/27/18 10:29 IMPRESSION: 1. Mild to moderate ascites (most conspicuous above the liver). 2. Limited passage of oral contrast into the small bowel. No dilated loops of small bowel. 3. Wallace catheter. 4. Atherosclerosis. 5. Body wall edema suggesting third spacing. 6. 1.5 cm hyperdense right renal lesion may represent a hyperdense proteinaceous cyst or solid neoplasm. 7. Indeterminate left adrenal lesion which does not meet imaging criteria for a lipid rich adenoma. However, in the absence of known primary malignancy or symptoms of functional adrenal mass, this likely represents a benign lesion such as a lipid poor adenoma. Electronically Signed: Kaushik Scott MD at 15:18 EST , Service support , Chest CT 09/27/18 10:29 IMPRESSION: Worsening multilobar consolidations favoring atelectasis given relative hypoinflation although pneumonia is also a diagnostic consideration. Small bilateral pleural effusions, new since the prior study. No cavitating process. Electronically Signed: Kaushik Scott MD at 15:23 EST , Service support , Microbiology 09/25/18 00:25 Blood Culture (Wb) - Central Line Blood Culture - Preliminary No growth in 48 hours. 09/23/18 05:04 Blood Culture (Wb) - Right Hand Bacteria Detection (PCR) - Final 09/23/18 05:04 Blood Culture (Wb) - Right Hand Blood Culture - Preliminary Staphylococcus aureus 09/23/18 01:25 Blood Culture (Wb) - Femoral Artery Bacteria Detection (PCR) - Final Staphylococcus aureus 09/23/18 01:25 Blood Culture (Wb) - Femoral Artery Blood Culture - Final Meth. resistant Staph. aureus 09/23/18 01:41 Urine, Catheterized Urine Culture - Final Presumptive E. coli Laboratory Results - last 24 hr 09/26/18 09/26/18 09/26/18 19:20 19:20 23:22 WBC RBC Hgb Hct MCV MCH MCHC RDW RDW Differential Plt Count MPV Immature Gran % (Auto) Neut % (Auto) Lymph % (Auto) [place] % (Auto) Eos % (Auto) Baso % (Auto) Absolute Neuts (auto) Absolute Lymphs (auto) Total Counted Nucleated RBC % Diff Path Review Platelet Estimate Hypochromasia Anisocytosis Maria M Cells Absolute Retic Specimen Type Sample Site pH Bicarbonate Actual POC Total CO2 Base Excess O2 Saturation ABG pCO2 ABG pO2 O2 Delivery Device Liter Flow Blood Gas Notified Whom Blood Gas Notified Time Sodium 151 H Potassium 4.1 Chloride 123 H Carbon Dioxide 21.0 Anion Gap 7 BUN 24 H Creatinine 0.89 Estim Creat Clear Calc 61.88 Est GFR (MDRD) Af Amer 82 Est GFR (MDRD) Non-Af 67 BUN/Creatinine Ratio 27.0 H Glucose 233 H Calcium 7.4 L Phosphorus 3.6 Magnesium 1.3 L Total Bilirubin AST ALT Alkaline Phosphatase Total Creatine Kinase 77 Total Protein Albumin Globulin Albumin/Globulin Ratio Random Vancomycin POC Glucose 246 H 09/27/18 09/27/18 09/27/18 05:35 05:35 05:35 WBC 14.2 H RBC 2.76 L Hgb 8.8 L Hct 28.8 L MCV 104.3 H MCH 31.9 MCHC 30.6 L RDW 23.6 H RDW Differential 88.1 H Plt Count 118 L MPV 11.3 Immature Gran % (Auto) 1.400 H Neut % (Auto) 87.1 H Lymph % (Auto) 2.8 L [place] % (Auto) 8.5 Eos % (Auto) 0.0 Baso % (Auto) 0.2 Absolute Neuts (auto) 12.4 H Absolute Lymphs (auto) 0.39 L Total Counted Not Reportable Nucleated RBC % 5.6 H Diff Path Review May foll Platelet Estimate ADEQUATE Hypochromasia 2+ Anisocytosis 1+ [place] Cells 1+ Absolute Retic 0.79 Specimen Type Sample Site pH Bicarbonate Actual POC Total CO2 Base Excess O2 Saturation ABG pCO2 ABG pO2 O2 Delivery Device Liter Flow Blood Gas Notified Whom Blood Gas Notified Time Sodium 149 H Potassium 4.4 Chloride 121 H Carbon Dioxide 20.0 L Anion Gap 8 BUN 26 H Creatinine 0.94 Estim Creat Clear Calc 58.58 Est GFR (MDRD) Af Amer 76 Est GFR (MDRD) Non-Af 63 BUN/Creatinine Ratio 27.6 H Glucose 327 H Calcium 7.8 L Phosphorus 4.2 Magnesium 2.2 Total Bilirubin 0.30 AST 42 H ALT 57 H Alkaline Phosphatase 102 Total Creatine Kinase Total Protein 4.1 L Albumin 1.5 L Globulin 2.6 Albumin/Globulin Ratio 0.6 L Random Vancomycin POC Glucose 09/27/18 09/27/18 09/27/18 05:38 12:00 12:39 WBC RBC Hgb Hct MCV MCH MCHC RDW RDW Differential Plt Count MPV Immature Gran % (Auto) Neut % (Auto) Lymph % (Auto) [place] % (Auto) Eos % (Auto) Baso % (Auto) Absolute Neuts (auto) Absolute Lymphs (auto) Total Counted Nucleated RBC % Diff Path Review Platelet Estimate Hypochromasia Anisocytosis Maria M Cells Absolute Retic Specimen Type Sample Site pH Bicarbonate Actual POC Total CO2 Base Excess O2 Saturation ABG pCO2 ABG pO2 O2 Delivery Device Liter Flow Blood Gas Notified Whom Blood Gas Notified Time Sodium Potassium Chloride Carbon Dioxide Anion Gap BUN Creatinine Estim Creat Clear Calc Est GFR (MDRD) Af Amer Est GFR (MDRD) Non-Af BUN/Creatinine Ratio Glucose Calcium Phosphorus Magnesium Total Bilirubin AST ALT Alkaline Phosphatase Total Creatine Kinase Total Protein Albumin Globulin Albumin/Globulin Ratio Random Vancomycin 24.5 H POC Glucose 310 H 321 H 09/27/18 09/27/18 15:28 18:08 WBC RBC Hgb Hct MCV MCH MCHC RDW RDW Differential Plt Count MPV Immature Gran % (Auto) Neut % (Auto) Lymph % (Auto) [place] % (Auto) Eos % (Auto) Baso % (Auto) Absolute Neuts (auto) Absolute Lymphs (auto) Total Counted Nucleated RBC % Diff Path Review Platelet Estimate Hypochromasia Anisocytosis [place] Cells Absolute Retic Specimen Type MARCK Sample Site OTHER pH 7.05 L* Bicarbonate Actual 18.8 L POC Total CO2 21 Base Excess -12 L O2 Saturation 91 L ABG pCO2 68.1 H* ABG pO2 89 O2 Delivery Device Nasal Can Liter Flow 3.0 Blood Gas Notified Whom HOSP Blood Gas Notified Time 1527 Sodium Potassium Chloride Carbon Dioxide Anion Gap BUN Creatinine Estim Creat Clear Calc Est GFR (MDRD) Af Amer Est GFR (MDRD) Non-Af BUN/Creatinine Ratio Glucose Calcium Phosphorus Magnesium Total Bilirubin AST ALT Alkaline Phosphatase Total Creatine Kinase Total Protein Albumin Globulin Albumin/Globulin Ratio Random Vancomycin POC Glucose 307 H Consultations 09/23/18 19:52 Consult: Onc/Wound/lumber piler Routine Comment: Reason for Consult:: Pressure injury to coccyx, excoriation to abd folds Operations: None Procedures: 2-D Echocardiogram - Interpretation Summary Normal LV size. Left ventricular systolic function is normal. The estimated ejection fraction is 60 %. Stage 1 diastolic dysfunction. Mild focal aortic valve calcification. Summary of Care Provided: The Patient is a 68-year-old female admitted to the hospital for severe sepsis secondary to MRSA bacteremia and E. coli UTI. She had just been discharged from [facility] where she was treated for an upper GI bleed secondary to a gastric ulcer. Past medical history is significant for rheumatoid arthritis, chronic lower extremity edema, chronic hypoxic respiratory failure, remote CVA with left hemiparesis, chronic dysphagia, coronary artery disease with history of PCI x2, hypertension, hyperlipidemia, GERD, diabetes mellitus type 2, morbid obesity and fatty infiltration of the liver. [place] lived [place] for the past 2 [place] and was placed initially for PT/OT/ST. Since placement at the [place] she has not been out of bed, even to the chair. She has not been eating. She sleeps most of the time. Over the past 6 months she has declined significantly. She was hypothermic at admission and this persisted. She was treated with Vanco and Rocephin and she was seen by ID. She was noted to have apneic episodes and we suspected she has sleep apnea. On 09/26 she declined further and was barely responsive. She was hypothermic and hypotensive. She was transferred to the ICU and diagnosed with Septic chock. CTB was unremarkable. She was placed on BIPAP. A CT of the chest, abd and pelvis showed worsening multilobar consolidations with hypoinflation. There were small bilateral pleural effusions and no cavitating processes. The abdomen CT showed mild to moderate ascites, body wall edema, a 1.5 cm right renal lesion possibly due to a proteinaceous cyst versus a solid neoplasm and an indeterminate left adrenal lesion which did not meet imaging criteria for a lipid rich adenoma. She continued to decline throughout the day on 09/27/2018 and an ABG drawn at 330 showed a pH of 7.05, PCO2 of 68 and a PO2 of 89 on nasal cannula at 3 L. I called her daughter Ileana who is the medical power of patent attorney and she requested that we order a hospice consult and change the CODE STATUS to DNR CC arrest. After the family met with hospice the family wanted DNR CC and she was transferred to the hospice facility. This note was generated with [employer] dictation software. It may contain incorrect words, spelling, and punctuation that were not noted in checking the note before signing. Patient Problems: Active and Suspected Problems Acute UTI (Acute) MRSA bacteremia (Acute) - Physical Exam Vital Signs Temp Pulse Resp BP Pulse Ox 97.3 F L 66 22 H 105/50 L 99 09/27/18 12:00 09/27/18 15:40 09/27/18 15:40 09/27/18 14:00 09/27/18 15:40 Oxygen Flow Rate (L/min) 3 Oxygen Delivery Method Nasal Cannula Weight: 250 lb 0.067 oz Body Mass Index (BMI) 34.2 Finger Stick Blood Glucose 95 Intake and Output for Last 24 Hours 09/25/18 09/26/18 09/27/18 23:59 23:59 23:59 Intake Total 3958 / 3958 4820 / 4820 2795.4 / 2795.4 Output Total 80 / 80 120 / 120 Balance 3958 / 3958 4740 / 4740 2675.4 / 2675.4 Microbiology Past 72 Hours 09/25/18 00:25 Blood Culture - Preliminary Blood Culture (Wb) - Central Line No growth in 48 hours. 09/23/18 05:04 Bacteria Detection (PCR) - Final Blood Culture (Wb) - Right Hand Blood Culture - Preliminary Staphylococcus aureus 09/23/18 01:25 Bacteria Detection (PCR) - Final Blood Culture (Wb) - Femoral Artery Staphylococcus aureus Blood Culture - Final Meth. resistant Staph. aureus 09/23/18 01:41 Urine Culture - Final Urine, Catheterized Presumptive E. coli Laboratory Tests Past 24 Hrs 09/26/18 09/26/18 09/27/18 19:20 19:20 05:35 WBC 14.2 H RBC 2.76 L Hgb 8.8 L Hct 28.8 L MCV 104.3 H MCH 31.9 MCHC 30.6 L RDW 23.6 H RDW Differential 88.1 H Plt Count 118 L MPV 11.3 Immature Gran % (Auto) 1.400 H Neut % (Auto) 87.1 H Lymph % (Auto) 2.8 L [place] % (Auto) 8.5 Eos % (Auto) 0.0 Baso % (Auto) 0.2 Absolute Neuts (auto) 12.4 H Absolute Lymphs (auto) 0.39 L Total Counted Not Reportable Nucleated RBC % 5.6 H Diff Path Review May foll Platelet Estimate ADEQUATE Hypochromasia 2+ Anisocytosis 1+ Maria M Cells 1+ Absolute Retic 0.79 Specimen Type Sample Site pH Bicarbonate Actual POC Total CO2 Base Excess O2 Saturation ABG pCO2 ABG pO2 O2 Delivery Device Liter Flow Blood Gas Notified Whom Blood Gas Notified Time Sodium 151 H Potassium 4.1 Chloride 123 H Carbon Dioxide 21.0 Anion Gap 7 BUN 24 H Creatinine 0.89 Estim Creat Clear Calc 61.88 Est GFR (MDRD) Af Amer 82 Est GFR (MDRD) Non-Af 67 BUN/Creatinine Ratio 27.0 H Glucose 233 H Calcium 7.4 L Phosphorus 3.6 Magnesium 1.3 L Total Bilirubin AST ALT Alkaline Phosphatase Total Creatine Kinase 77 Total Protein Albumin Globulin Albumin/Globulin Ratio Random Vancomycin 09/27/18 09/27/18 09/27/18 05:35 05:35 12:00 WBC RBC Hgb Hct MCV MCH MCHC RDW RDW Differential Plt Count MPV Immature Gran % (Auto) Neut % (Auto) Lymph % (Auto) [place] % (Auto) Eos % (Auto) Baso % (Auto) Absolute Neuts (auto) Absolute Lymphs (auto) Total Counted Nucleated RBC % Diff Path Review Platelet Estimate Hypochromasia Anisocytosis [place] Cells Absolute Retic Specimen Type Sample Site pH Bicarbonate Actual POC Total CO2 Base Excess O2 Saturation ABG pCO2 ABG pO2 O2 Delivery Device Liter Flow Blood Gas Notified Whom Blood Gas Notified Time Sodium 149 H Potassium 4.4 Chloride 121 H Carbon Dioxide 20.0 L Anion Gap 8 BUN 26 H Creatinine 0.94 Estim Creat Clear Calc 58.58 Est GFR (MDRD) Af Amer 76 Est GFR (MDRD) Non-Af 63 BUN/Creatinine Ratio 27.6 H Glucose 327 H Calcium 7.8 L Phosphorus 4.2 Magnesium 2.2 Total Bilirubin 0.30 AST 42 H ALT 57 H Alkaline Phosphatase 102 Total Creatine Kinase Total Protein 4.1 L Albumin 1.5 L Globulin 2.6 Albumin/Globulin Ratio 0.6 L Random Vancomycin 24.5 H 09/27/18 15:28 WBC RBC Hgb Hct MCV MCH MCHC RDW RDW Differential Plt Count MPV Immature Gran % (Auto) Neut % (Auto) Lymph % (Auto) [place] % (Auto) Eos % (Auto) Baso % (Auto) Absolute Neuts (auto) Absolute Lymphs (auto) Total Counted Nucleated RBC % Diff Path Review Platelet Estimate Hypochromasia Anisocytosis Maria M Cells Absolute Retic Specimen Type MARCK Sample Site OTHER pH 7.05 L* Bicarbonate Actual 18.8 L POC Total CO2 21 Base Excess -12 L O2 Saturation 91 L ABG pCO2 68.1 H* ABG pO2 89 O2 Delivery Device Nasal Can Liter Flow 3.0 Blood Gas Notified Whom [facility] Blood Gas Notified Time 1527 Sodium Potassium Chloride Carbon Dioxide Anion Gap BUN Creatinine Estim Creat Clear Calc Est GFR (MDRD) Af Amer Est GFR (MDRD) Non-Af BUN/Creatinine Ratio Glucose Calcium Phosphorus Magnesium Total Bilirubin AST ALT Alkaline Phosphatase Total Creatine Kinase Total Protein Albumin Globulin Albumin/Globulin Ratio Random Vancomycin POC Glucose 09/27/18 09/27/18 09/27/18 18:08 12:39 05:38 POC Glucose 307 H 321 H 310 H 09/26/18 23:22 POC Glucose 246 H Home Medications: Medications to take at Discharge Aspirin E.C. [Ecotrin] 81 mg PO DAILY@0800 03/18/16 Atenolol [Tenormin] 25 mg PO DAILY 03/18/16 Atorvastatin Calcium [Lipitor] 40 mg PO QHS 03/18/16 Folic Acid 1 mg PO DAILY@0800 03/18/16 Hydroxychloroquine [Plaquenil] 200 mg PO BIDCM 03/18/16 [place]-3 Fatty Acids/Fish Oil [[place] 3 Fish Oil Softgel] 1 cap PO DAILY 03/18/16 Docusate Sodium [Colace] 100 mg PO PRN PRN 09/15/18 Potassium Chloride [Klor-Con M20] 20 meq PO DAILY 09/15/18 traZODone [Desyrel] 25 mg PO QHS 09/15/18 Ascorbic Acid [Vitamin C] 500 mg PO DAILY@0800 09/23/18 Methotrexate Sodium [Methotrexate] 2.5 mg PO FR 09/23/18 Multivit,Tx with Iron,Minerals [Thera-M] 1 each PO DAILY 09/23/18 Pantoprazole Sodium [Protonix] 40 mg PO BID 09/23/18 Polyethylene Glycol 3350 [Miralax] 34 gm PO DAILY PRN 09/23/18 Zolpidem Tartrate [Ambien (Generic)] 5 mg PO QHS PRN PRN 09/23/18 Primary Care Physician: Shakira Brewer MD [Primary Care Provider] - Disposition: Hospice Medical Facility Minutes spent on discharge:: 40 Patient Condition:: Critical Medical Necessity - Tobacco Use Smoking Status: Former smoker Tobacco Use: Non-smoker Meaningful Use Info Meaningful Use Diagnoses (Choose all that apply): None applicable
--- NOTE | 2018-09-27 18:45 | NURSING ---
report called to [facility] expedition guide Mary
[2018-09-28 13:44] LABS: Pathologist Review Reviewed
== END 2018-09-27 19:20 | disposition hospice, inpatient (51) | DRG 871 ==
LOC: ED 02:22 → PCU 03:43 → ICU 09-26 10:45
PROVIDERS: Internal Medicine Infectious Disease; Admitting Provider Family Medicine; Emergency Provider Emergency Medicine; Family Provider Internal Medicine; PCP Internal Medicine; Visit Provider Internal Medicine
DX: A41.02 Sepsis due to Methicillin resistant Staphylococcus aureus (principal); R65.21 Severe sepsis with septic shock; E43 Unspecified severe protein-calorie malnutrition; K25.4 Chronic or unspecified gastric ulcer with hemorrhage; J96.21 Acute and chronic respiratory failure with hypoxia; N39.0 Urinary tract infection, site not specified; E87.0 Hyperosmolality and hypernatremia; J90 Pleural effusion, not elsewhere classified; D62 Acute posthemorrhagic anemia; I69.354 Hemiplegia and hemiparesis following cerebral infarction affecting left non-dominant side; B96.20 Unspecified Escherichia coli [E. coli] as the cause of diseases classified elsewhere; E87.6 Hypokalemia; Z68.34 Body mass index [BMI] 34.0-34.9, adult; R60.1 Generalized edema; N28.89 Other specified disorders of kidney and ureter; E27.9 Disorder of adrenal gland, unspecified; I69.391 Dysphagia following cerebral infarction; R13.12 Dysphagia, oropharyngeal phase; E78.5 Hyperlipidemia, unspecified; K21.9 Gastro-esophageal reflux disease without esophagitis; F41.9 Anxiety disorder, unspecified; F32.9 Major depressive disorder, single episode, unspecified; R53.81 Other malaise; M06.9 Rheumatoid arthritis, unspecified; G47.33 Obstructive sleep apnea (adult) (pediatric); R68.0 Hypothermia, not associated with low environmental temperature; I25.10 Atherosclerotic heart disease of native coronary artery without angina pectoris; Z51.5 Encounter for palliative care; E66.9 Obesity, unspecified; Z66 Do not resuscitate; Z79.899 Other long term (current) drug therapy; Z87.891 Personal history of nicotine dependence; Z98.61 Coronary angioplasty status; Z99.81 Dependence on supplemental oxygen
CPT/HCPCS: 36415; 36556; 36620; 70450; 71045; 71250; 74018; 74019; 74176; 80048; 80053; 80061; 80069; 80202; 81001; 82533; 82550; 82607; 82728; 82747; 82803; 82962; 83540; 83550; 83605; 83690; 83735; 84100; 84439; 84443; 84481; 85014; 85025; 85045; 85610; 85730; 86850; 86900; 87040; 87086; 87088; 87149; 87186; 92526; 93005; 93306; 93970; 93971; 94002; 94003; 94640; 97161; 97166; 97802; 99285; J7030; J7040; P9047; P9612; Q9957; A4216; C1751; J0696; J1940; J2405; J7799